=== PATIENT | male | born 1955 | race Caucasian/White ===

== ENCOUNTER 2019-11-24 15:43 | Inpatient (IN) ==
[2019-11-24] MEDS ORDERED: ALBUT/IPRATROP 3MG/0.5MG NEB 3 ML VIAL INH STA (15:53)
[2019-11-24 16:15] LABS: Basophils # (auto) 0.02 K/uL (0-0.2); Basophils % (auto) 0.2 %; Eosinophils # (auto) 0.04 K/uL (0-0.5); Eosinophils % (auto) 0.3 %; Hematocrit (blood only) 53.3 % (42-52); Hemoglobin 17.1 g/dL (14.0-18.0); Immature Granulocytes # (auto) 0.03 K/uL (0.00-0.02); Immature Granulocytes % (auto) 0.2 %; Lymphocytes # (auto) 1.69 K/uL (1.2-3.4); Lymphocytes % (auto) 13.8 %; Mean Corpuscular Hemoglobin 29.9 pg (25-34); Mean Corpuscular Hgb Conc 32.1 g/dL (32-36); Mean Corpuscular Volume 93.2 fL (80-100); Mean Platelet Volume 9.8 fL (7.4-10.4); Monocytes # (auto) 1.39 K/uL (0.11-0.59); Monocytes % (auto) 11.4 %; Neutrophils # (auto) 9.04 K/uL (1.4-6.5); Neutrophils % (auto) 74.1 %; Platelet Count 298 K/uL (130-400); RDW Coefficient of Variation 15.2 % (11.5-14.5); RDW Standard Deviation 51.1 fL (36.4-46.3); Red Blood Count 5.72 M/uL (4.7-6.1); White Blood Count 12.21 K/uL (4.8-10.8)
[2019-11-24 16:25] LABS: INR 1.2 (0.9-1.1); Partial Thromboplastin Ratio 0.9; Partial Thromboplastin Time 24.8 Seconds (21.0-31.0); Prothrombin Time 11.9 Seconds (9.0-12.0)
[2019-11-24 16:32] LABS: Albumin Level 3.1 gm/dl (3.4-5.0); BUN Creatinine Ratio 23.8 (10-20); Calcium 9.2 mg/dl (8.5-10.1); Creatinine Clr Calc Pharmacy 75.1 ml/min; Est GFR (African American) 59.1; Magnesium 1.9 mg/dl (1.8-2.4); Potassium 3.8 mmol/L (3.5-5.1)
--- NOTE | 2019-11-24 16:35 | Emergency Department Note ---
Entered by Jamar Cullen acting as a scribe for History of Present Illness General Chief complaint: Shortness of Breath/Dyspnea Stated complaint: SOB Time Seen by Provider: 11/24/19 15:59 Source: patient Limitations: no limitations History of Present Illness The patient is a 64 year old male who presents to the Emergency Room with complaints of constant SOB starting a few days ago. The patient states he does not have a history of lung problems. He states he was diagnosed with congestive heart failure within the past year. He states his legs have been more swollen in the past two days. He states he has not weighed himself. He notes he has been coughing and has been bringing up white and clear sputum. He states his abdomen has been distended and notes he gets filled up with gas a lot. He notes he has had sharp pain in his right shoulder for the past couple days. The patient states he he has an open wound on his left calf. He states he has taken 3 courses of antibiotics within the past week for his left calf. He states he is not on antibiotics right now. He states he has diabetes and takes metformin for that. The patient denies having chest pain, fevers, chills, flu-like symptoms, black or bloody stools, achiness, and history of blood clots. He states he does not wear oxygen at home. He states he has been taking his medications and has not ran out of them. Home Medications Home Medications Medication Instructions Recorded Confirmed Type amlodipine 5 mg PO QAM 10/31/18 11/24/19 History ascorbic acid (vitamin C) [Vitamin 1,000 mg PO QAM 10/31/18 11/24/19 History C] aspirin [Aspir-81] 81 mg PO QAM 10/31/18 11/24/19 History cetirizine 10 mg PO QAM 10/31/18 11/24/19 History multivitamin [Multiple Vitamins] 1 tab PO QAM 10/31/18 11/24/19 History potassium gluconate 600 mg PO QAM 10/31/18 11/24/19 History ranitidine HCl 150 mg PO QAM 10/31/18 11/24/19 History turmeric root extract 500 mg PO QAM 10/31/18 11/24/19 History acetaminophen 1,300 mg PO UD PRN 11/24/19 11/24/19 History atenolol 25 mg PO QAM 11/24/19 11/24/19 History atorvastatin 40 mg PO QAM 11/24/19 11/24/19 History fenofibrate micronized 200 mg PO QAM 11/24/19 11/24/19 History furosemide 60 mg PO QAM 11/24/19 11/24/19 History lisinopril 40 mg PO DAILY 11/24/19 11/24/19 History metformin 500 mg PO QAM 11/24/19 11/24/19 History Allergies Allergy/AdvReac Type Severity Reaction Status Date / Time No Known Allergies Allergy Verified 11/24/19 16:17 Past Med/Surg History Medical History Arthritis Arthritis (Chronic) CHF (congestive heart failure) Chronic venous insufficiency (Chronic) Congestive heart failure (Resolved) Diabetes Diabetes (Chronic) GERD without esophagitis (Chronic) High cholesterol (Chronic) HTN (hypertension) Hyperlipidemia Hypertension (Chronic) Tobacco pipe smoker Smokes 1 pipe / week Venous ulcer of left leg (Chronic) Vitamin D deficiency (Chronic) Surgical History Hx of hand surgery Family History Aunt Colorectal cancer maternal aunt Mother Myocardial infarction Father Myocardial infarction Social History Preferred Language: [place]ian Communication Ability: Effective Visual Impairment: No Limitations Hearing Ability: Normal Scrape Gatherer Required: No Beliefs That Will Affect Care: None marital status: Single Current Living Situation: Alone current occupational status: disabled Other Information That Helps Us Care for You: No Feels Safe at Home: Yes Safety Concerns: Feels Safe At This Time Smoking Status: Current some day smoker Tobacco Type: cigarettes and smokeless tobacco ; Cigarettes Per Day: 1 to 2 a day in a month ; Do You Dip or Chew Tobacco: Yes (1.25 oz X 2 (cans)) ; Second Hand Exposure: No ; Tobacco Cessation Education Requested by Patient: No Hx Alcohol Use: Yes Alcohol type: beer, wine and hard liquor Alcohol Intake Frequency: Weekly Hx Substance Use: No caffeine: Yes Dental Care, Regularly: No Seatbelt Use: always Sunscreen Use: No Review of Systems See HPI for pertinent positives & negatives. and A total of 10 systems reviewed and were otherwise negative Physical Exam Vital Signs Vital Signs - 24 hr 11/24/19 15:47 11/24/19 15:57 11/24/19 16:00 Temperature 36.7 C Temperature Source Oral Pulse Rate 99 H 96 H 95 H Pulse Rate from SpO2 Sensor 99 H 94 H Pulse Rhythm Regular Pulse Strength Normal Respiratory Rate 22 16 20 Respiratory Effort / Characteristics Non-Labored Spontaneous Respiratory Depth Normal Respiratory Pattern Regular Blood Pressure 112/74 133/86 Blood Pressure Mean 86 96 Blood Pressure Position Sitting Pulse Oximetry 79 L 91 92 Oxygen Delivery Method Room Air Oxymask Oxymask Oxygen Flow Rate 5 5 Sepsis Recent Fever Within 48 Hours No Sepsis New/Unexplained Change in Mental Status No Sepsis Action Taken by Nursing No Action Required 11/24/19 16:02 11/24/19 16:05 11/24/19 16:10 Temperature Temperature Source Pulse Rate 96 H 94 H Pulse Rate from SpO2 Sensor 95 H 94 H Pulse Rhythm Pulse Strength Respiratory Rate 23 11 L Respiratory Effort / Characteristics Spontaneous Respiratory Depth Normal Respiratory Pattern Regular Blood Pressure 114/73 Blood Pressure Mean 85 Blood Pressure Position Pulse Oximetry 93 90 Oxygen Delivery Method Oxymask Room Air Oxymask Oxygen Flow Rate 5 5 Sepsis Recent Fever Within 48 Hours Sepsis New/Unexplained Change in Mental Status Sepsis Action Taken by Nursing 11/24/19 16:20 11/24/19 16:30 11/24/19 16:31 Temperature Temperature Source Pulse Rate 95 H 93 H 92 H Pulse Rate from SpO2 Sensor 96 H 94 H 93 H Pulse Rhythm Pulse Strength Respiratory Rate 25 H 21 29 H Respiratory Effort / Characteristics Respiratory Depth Respiratory Pattern Blood Pressure 98/73 L Blood Pressure Mean 76 Blood Pressure Position Pulse Oximetry 89 L Oxygen Delivery Method Oxymask Oxymask Oxymask Oxygen Flow Rate 5 5 5 Sepsis Recent Fever Within 48 Hours Sepsis New/Unexplained Change in Mental Status Sepsis Action Taken by Nursing 11/24/19 16:40 11/24/19 16:50 11/24/19 17:00 Temperature Temperature Source Pulse Rate 90 92 H 85 Pulse Rate from SpO2 Sensor 90 93 H 86 Pulse Rhythm Pulse Strength Respiratory Rate 23 21 9 L Respiratory Effort / Characteristics Respiratory Depth Respiratory Pattern Blood Pressure 106/65 Blood Pressure Mean 78 Blood Pressure Position Pulse Oximetry 90 89 L Oxygen Delivery Method Oxymask Oxymask Oxymask Oxygen Flow Rate 5 5 5 Sepsis Recent Fever Within 48 Hours Sepsis New/Unexplained Change in Mental Status Sepsis Action Taken by Nursing 11/24/19 17:01 11/24/19 17:10 11/24/19 17:20 Temperature Temperature Source Pulse Rate 86 100 H 84 Pulse Rate from SpO2 Sensor 87 92 H 84 Pulse Rhythm Pulse Strength Respiratory Rate 6 L 16 10 L Respiratory Effort / Characteristics Respiratory Depth Respiratory Pattern Blood Pressure Blood Pressure Mean Blood Pressure Position Pulse Oximetry 90 90 90 Oxygen Delivery Method Oxymask Oxymask Oxymask Oxygen Flow Rate 5 5 5 Sepsis Recent Fever Within 48 Hours Sepsis New/Unexplained Change in Mental Status Sepsis Action Taken by Nursing 11/24/19 17:30 11/24/19 17:31 11/24/19 17:40 Temperature Temperature Source Pulse Rate 82 80 87 Pulse Rate from SpO2 Sensor 82 80 87 Pulse Rhythm Pulse Strength Respiratory Rate 19 25 H 21 Respiratory Effort / Characteristics Respiratory Depth Respiratory Pattern Blood Pressure 115/75 Blood Pressure Mean 84 Blood Pressure Position Pulse Oximetry 91 89 L 82 L Oxygen Delivery Method Oxymask Oxymask Room Air Oxygen Flow Rate 5 5 Sepsis Recent Fever Within 48 Hours Sepsis New/Unexplained Change in Mental Status Sepsis Action Taken by Nursing 11/24/19 17:50 Temperature Temperature Source Pulse Rate 82 Pulse Rate from SpO2 Sensor 82 Pulse Rhythm Pulse Strength Respiratory Rate 9 L Respiratory Effort / Characteristics Respiratory Depth Respiratory Pattern Blood Pressure Blood Pressure Mean Blood Pressure Position Pulse Oximetry 89 L Oxygen Delivery Method Oxymask Oxygen Flow Rate 5 Sepsis Recent Fever Within 48 Hours Sepsis New/Unexplained Change in Mental Status Sepsis Action Taken by Nursing General: Non-ill appearing older male in no acute distress. He is on supplemental oxygen with an O2 sat of 89-91 percent. HEENT: Normal cephalic atraumatic. Pupils are equal round and reactive to light. Extraocular movements are intact. Oropharynx is pink with moist mucous membranes. No swelling of the mouth lips or tongue. Neck: Supple with a midline trachea. No meningeal signs or stiffness, no JVD or bruits. No Stridor. Chest: Clear to auscultation bilaterally. No wheezes or rhonchi. No increased work of breathing. Diminished breath sounds. Heart: regular rate and rhythm. Abdomen: Soft nontender, nondistended without rebound guarding or rigidity. Extremities: No cyanosis clubbing. Bilateral pitting edema. Spine/Back. Non tender to palpation. No CVA tenderness Skin: Good turgor without rashes. Neurologic exam: Cranial nerves two through 12 are intact. Motor and sensation are intact and symmetrical throughout. Course Course 1600: The patient was evaluated in room B2, and a complete history and physical examination were performed. 1643: I discussed the patient's case with Dr. Josephine Otero - [facility]. She will evaluate the patient for further management 1655: I ordered a CTA. 1735: I spoke with Dr. Otero. She wants to cancel the CTA. Administered Medications Enoxaparin Sodium (Lovenox) 40 mg SQ QPM ROSETTE Stop: 12/24/19 20:59 Last Admin: 11/24/19 20:32 Dose: 40 mg Documented by: [id number] Insulin Aspart (Novolog Flexpen) 0 units SC ACHS ROSETTE Stop: 12/24/19 20:59 Last Admin: 11/24/19 20:43 Dose: 5 units Documented by: [id number] Cosigned by: [id number] Insulin Glargine (Lantus Solostar Pen) 8 units SC BID ROSETTE Stop: 12/24/19 20:59 Last Admin: 11/24/19 20:34 Dose: 8 units Documented by: [id number] Cosigned by: [id number] Miscellaneous (Order Awaiting Action) 1 ea N/A QS [facility] Stop: 12/25/19 00:00 Last Admin: 11/24/19 23:35 Dose: Not Given Documented by: [id number] Discontinued Medications Acetaminophen (Tylenol) Confirm Administered Dose 650 mg .ROUTE .STK-MED ONE Stop: 11/24/19 19:39 Last Admin: 11/24/19 19:43 Dose: 650 mg Documented by: [id number] Albuterol (Duoneb) 3 ml INH NOW STA Stop: 11/24/19 15:54 Last Admin: 11/24/19 16:15 Dose: Not Given Documented by: [id number] Furosemide (Lasix) 60 mg IV NOW STA Stop: 11/24/19 19:33 Last Admin: 11/24/19 20:31 Dose: 60 mg Documented by: [id number] Medical Decision Making Differential Diagnosis Differential Diagnosis includes but is not limited to CHF, cardiac disease, arrhythmia, infection, sepsis, and electrolyte or metabolic abnormality. Medical Records Attestation: I reviewed the patient's medical records. Home Medications Current Medication List: was personally reviewed by me Laboratory Data Attestation: I reviewed the patient's lab results. Result diagrams: 11/24/19 16:02 11/24/19 16:02 Lab Results 11/24/19 11/24/19 11/24/19 Range/Units 16:02 16:02 16:02 WBC 12.21 H (4.8-10.8) K/uL RBC 5.72 (4.7-6.1) M/uL Hgb 17.1 (14.0-18.0) g/dL Hct 53.3 H (42-52) % MCV 93.2 (80-100) fL MCH 29.9 (25-34) pg MCHC 32.1 (32-36) g/dL RDW Std Deviation 51.1 H (36.4-46.3) fL RDW Coeff of [place]acio 15.2 H (11.5-14.5) % Plt Count 298 (130-400) K/uL MPV 9.8 (7.4-10.4) fL Immature Gran % (Auto) 0.2 % Neut % (Auto) 74.1 % Lymph % (Auto) 13.8 % [place] % (Auto) 11.4 % Eos % (Auto) 0.3 % Baso % (Auto) 0.2 % Immature Gran # (Auto) 0.03 H (0.00-0.02) K/uL Neut # (Auto) 9.04 H (1.4-6.5) K/uL Lymph # (Auto) 1.69 (1.2-3.4) K/uL [place] # (Auto) 1.39 H (0.11-0.59) K/uL Eos # (Auto) 0.04 (0-0.5) K/uL Baso # (Auto) 0.02 (0-0.2) K/uL PT 11.9 (9.0-12.0) Seconds INR 1.2 H (0.9-1.1) APTT 24.8 (21.0-31.0) Seconds PTT Ratio 0.9 Sodium 143 (136-145) mmol/L Potassium 3.8 (3.5-5.1) mmol/L Chloride 105 (98-107) mmol/L Carbon Dioxide 32 (21-32) mmol/L Anion Gap 6.0 (3-11) BUN 34 H (7-18) mg/dl Creatinine 1.44 H (0.6-1.4) mg/dl Est Cr Clr Drug Dosing 75.1 ml/min Est GFR ( Amer) 59.1 Est GFR (Non-Af Amer) 51.0 BUN/Creatinine Ratio 23.8 H (10-20) Glucose 178 H (70-99) mg/dl Calcium 9.2 (8.5-10.1) mg/dl Magnesium 1.9 (1.8-2.4) mg/dl Total Bilirubin 0.6 (0.2-1) mg/dl AST 25 (15-37) U/L ALT 23 (12-78) U/L Alkaline Phosphatase 54 (45-117) U/L Troponin I 0.236 H* (0-0.045) ng/ml NT-Pro-B Natriuret Pep 4279 H (0-900) pg/ml Total Protein 7.2 (6.4-8.2) gm/dl Albumin 3.1 L (3.4-5.0) gm/dl Globulin 4.1 H (2.5-4.0) gm/dl Albumin/Globulin Ratio 0.7 L (0.9-2) Lipase 52 L (73-393) U/L Imaging Data Radiologist's Impression: Radiology results as stated below per my review and the radiologist's interpretation: XR chest 1V portable CLINICAL HISTORY: SOB dyspnea COMPARISON STUDY: No previous studies for comparison. FINDINGS: Mild cardiac enlargement. Mild prominence of the pulmonary vasculature. Diaphragms are smooth. Chronic elevation right hemidiaphragm IMPRESSION: . Mild cardiac enlargement. Pulmonary vascular congestion. ACT 112: Negative or not required by law. The above report was generated using voice recognition software. It may contain grammatical, syntax or spelling errors. Electronically signed by: Mohan Mckinney M.D. 11/24/2019 5:01 PM ECG Data Attestation: I personally reviewed and interpreted this ECG as follows: Indication: + SOB/dyspnea Rate (beats per minute): 106 Rhythm: + sinus tachycardia ECG ST segments: + T-wave inversions (anterior and inferior); no ST elevation Comparison ECG Date: no prior available MDM Narrative This patient comes in as described above. He said shortness of breath and weight gain over the last several days he does have a history of CHF. He has been compliant with his medication denies any chest pain or fever he has had a cough that occasionally has some nonpurulent phlegm. IV access established she was 79% when he was brought in from triage from his family. He was placed on oxygen and appears well with supplemental oxygen he does not wear oxygen at home he has no history of pulmonary lung problems besides CHF. He is a diabetic. We did check a fingerstick IV access was established, chest x-ray, EKG, and multip le blood testing was obtained. He was reassessed frequently. His BNP and troponin are also elevated as well as a chest x-ray consistent with CHF. EKG does not show any ischemic changes. he has no significant electrolyte or metabolic abnormalities, with exception of some renal insufficiency.I do think he needs to be admitted/observed. I have consulted Dr. Otero, the hospitalist to see him for these measures. She initially had asked me to order a CT of his chest however after she saw the patient she does not feel she needs it and the patient is not sure he could tolerate laying flat. They will further observe and treat him in the hospital. Impression & Plan SOB (shortness of breath), CHF (congestive heart failure), Hypoxemia, Diabetes Discharge Plan Visit Data *Final* Discharge Date/Time: 11/24/19 18:55 Chief Complaint: Shortness of Breath/Dyspnea Stated Complaint: SOB ED Provider: Dayday Muñoz Discharge Problem: SOB (shortness of breath), CHF (congestive heart failure), Hypoxemia, Diabetes Patient Disposition: Admitted As Inpatient Discharge Instructions Interventions: ED Discharge Assessment Last Done: 11/24/19 18:55 Discharge Problem: CHF (congestive heart failure) Qualifiers: Heart failure type: unspecified Heart failure chronicity: unspecified Qualified Code(s): I50.9 - Heart failure, unspecified Diabetes Qualifiers: Diabetes mellitus type: type 2 Diabetes mellitus detention insulin use: without terminal makeup operator use Diabetes mellitus complication status: without complication Qualified Code(s): E11.9 - Type 2 diabetes mellitus without complications The sujeyibe's documentation has been prepared under my direction and personally reviewed by me in its entirety. I confirm that the note above accurately reflects all work, treatment, procedures, and medical decision making performed by me.
[2019-11-24 16:42] LABS: Albumin Globulin Ratio 0.7 (0.9-2); Bilirubin,Total 0.6 mg/dl (0.2-1); Globulin 4.1 gm/dl (2.5-4.0); Total Protein 7.2 gm/dl (6.4-8.2); Troponin I 0.236 ng/ml (0-0.045)
--- NOTE | 2019-11-24 17:02 | XRay Report ---
XR chest 1V portable CLINICAL HISTORY: SOB dyspnea COMPARISON STUDY: No previous studies for comparison. FINDINGS: Mild cardiac enlargement. Mild prominence of the pulmonary vasculature. Diaphragms are smoo th. Chronic elevation right hemidiaphragm IMPRESSION: . Mild cardiac enlargement. Pulmonary vascular congestion. ACT 112: Negative or not required by law. The above report was generated using voice recognition software. It may contain grammatical, syntax or spelling errors. Electronically signed by: Mohan Mckinney M.D. 11/24/2019 5:01 PM
--- NOTE | 2019-11-24 18:06 | History & Physical Report ---
Date of Service November 24, 2019 Assessment & Plan (1) SOB (shortness of breath): Patient presenting with progressive shortness of breath, dyspnea with minimal exertion. Hypoxic in triage at 79% on room air. During my encounter, tachypneic with adequate oxygenation on facemask. Crackles on exam, chest x-ray significant for pulmonary edema. Suspect acute exacerbation of CHF as underlying etiology of shortness of breath. Low suspicion for infectious etiology at this time. -Admit to PCU Check VBG to assess ventilation Check 2D echo Supplemental oxygen as needed to maintain saturations greater than 94% Lasix 60 mg IV x1 dose Monitor intake and output, daily weights -Patient with slight CO2 retention - will try VapoTherm/High flow -VBG with AM labs Present on Admission?: Yes (2) Hypoxemia: As above, patient hypoxic on arrival. Requiring supplemental oxygen to maintain saturations. Suspect CHF exacerbation given clinical exam findings, labs and imaging. Little suspicion for PE given low Wells score. Do not suspect infectious etiology at this time. Patient with no history of asthma/COPD Treatment as above Present on Admission?: Yes (3) Abdominal distention: Patient reports increased abdominal distention. Having difficult time passing flatus. Diminished bowel sounds Check KUB Present on Admission?: Yes (4) Venous stasis ulcer: Patient follows with wound clinic. Last seen by Dr. Grigsby yesterday. Is presently not taking antibiotics. Does not appear to have active infection. Wound care daily Present on Admission?: Yes (5) GERD without esophagitis: Chronic. Stable. Patient denies symptoms at this time Pepcid 40 mg p.o. every morning Patient can be discharged home on his ranitidine Present on Admission?: Yes (6) Diabetes: Blood sugar = 178 today. Patient on metformin at home Hold metformin while inpatient Lantus 8 units subcutaneous twice daily with insulin sliding scale Goal blood sugar 100-1 40 Present on Admission?: Yes (7) High cholesterol: Chronic. Stable. -Continue atorvastatin Continue fenofibrate Present on Admission?: Yes (8) Hypertension: Blood pressure stable at present Continue amlodipine Continue atenolol Continue lisinopril F/E/N- Diuresis as above. Monitor electrolytes and replete as needed. CC/Low Na diet as tolerated Ppx - Lovenox Code - Full Dispo - Admit to PCU Present on Admission?: Yes History of Present Illness Chief Complaint: SOB Primary Care Provider: ABHAY Jennings Elliot Kearns is a 64yo C male with history of CHF, HTN/HLP/DM presenting with 2-3 days of worsening SOB, dyspnea with minimal exertion. He reports only being able to walk 10 feet before becoming short of breath. Also with cough, productive for white mucus. +Orthopnea +5 to 6# weight gain over the last month, +LE edema. No prior admissions for CHF exacerbation. He admits to overindulging in salt over the holiday season. Has not missed his medications. Denies pleuritic CP, CP, palpitations, hemoptysis, abdominal pain, nausea, vomiting, diarrhea, constipation. Denies fevers/chills. ER Course: Albuterol Allergies Allergy/AdvReac Type Severity Reaction Status Date / Time No Known Allergies Allergy Verified 11/24/19 16:17 Home Medications Home Medications Medication Instructions Recorded Confirmed Type amlodipine 5 mg PO QAM 10/31/18 11/24/19 History ascorbic acid (vitamin C) [Vitamin 1,000 mg PO QAM 10/31/18 11/24/19 History C] aspirin [Aspir-81] 81 mg PO QAM 10/31/18 11/24/19 History cetirizine 10 mg PO QAM 10/31/18 11/24/19 History multivitamin [Multiple Vitamins] 1 tab PO QAM 10/31/18 11/24/19 History potassium gluconate 600 mg PO QAM 10/31/18 11/24/19 History ranitidine HCl 150 mg PO QAM 10/31/18 11/24/19 History turmeric root extract 500 mg PO QAM 10/31/18 11/24/19 History acetaminophen 1,300 mg PO UD PRN 11/24/19 11/24/19 History atenolol 25 mg PO QAM 11/24/19 11/24/19 History atorvastatin 40 mg PO QAM 11/24/19 11/24/19 History fenofibrate micronized 200 mg PO QAM 11/24/19 11/24/19 History furosemide 60 mg PO QAM 11/24/19 11/24/19 History lisinopril 40 mg PO DAILY 11/24/19 11/24/19 History metformin 500 mg PO QAM 11/24/19 11/24/19 History Past Med/Surg History Medical History Arthritis Arthritis (Chronic) CHF (congestive heart failure) Chronic venous insufficiency (Chronic) Congestive heart failure (Resolved) Diabetes Diabetes (Chronic) GERD without esophagitis (Chronic) High cholesterol (Chronic) HTN (hypertension) Hyperlipidemia Hypertension (Chronic) Tobacco pipe smoker Smokes 1 pipe / week Venous ulcer of left leg (Chronic) Vitamin D deficiency (Chronic) Surgical History Hx of hand surgery Family History Aunt Colorectal cancer maternal aunt Mother Myocardial infarction Father Myocardial infarction Social History Preferred Language: Arabic Communication Ability: Effective Visual Impairment: No Limitations 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 Beliefs That Will Affect Care: None marital status: Single Current Living Situation: Alone current occupational status: disabled Other Information That Helps Us Care for You: No Feels Safe at Home: Yes Safety Concerns: Feels Safe At This Time Smoking Status: Current some day smoker Tobacco Type: cigarettes and smokeless tobacco ; Cigarettes Per Day: 1 to 2 a day in a month ; Do You Dip or Chew Tobacco: Yes (1.25 oz X 2 (cans)) ; Second Hand Exposure: No ; Tobacco Cessation Education Requested by Patient: No Hx Alcohol Use: Yes Alcohol type: beer, wine and hard liquor Alcohol Intake Frequency: Weekly Hx Substance Use: No caffeine: Yes Dental Care, Regularly: No Seatbelt Use: always Sunscreen Use: No Review of Systems Review of Systems: All systems reviewed & are unremarkable except as noted in HPI & below Physical Exam Physical Exam: General: Obese patient resting comfortably, mildly tachypneic, non-toxic in appearance, AA&O x 4, patient becomes quite dyspneic and hypoxic with minimal exertion Skin: warm, dry, no rashes, wound on left lower extremity with granulation [place]/eschar, no bleeding/drainage/evidence of secondary infection HEENT: NC/AT, PERRL, EOMI, anicteric sclera, conjunctiva without injection, external ear normal to inspection and nontender, nares patent, moist mucus membranes, dentition intact, no oropharyngeal lesions, neck supple, trachea midline, no LAD, no thyromegaly, evaluation of JVD limited secondary to body habitus Heart: +S1/S2, regular, no m/r/g Lungs: equal air entry bilaterally, + rales in bilateral bases, left more than right, no rhonchi/wheezes Abd: Hypoactive bowel sounds, soft, NT, distended and tympanic to percussion, no masses/organomegaly/ascites Ext: warm, 2+ pulses in UE/LE bilaterally, wound on left anterior monge with dressing in place. No crepitus/bulla/streaking. 2+ pitting edema of left lower extremity, 1+ pitting edema of right lower extremity Neuro: nonfocal, patient AA&O x 4, speech intact, no facial droop, moving all extremities on command with equal strength 5/5 Results & Data Vital Signs (Past 12 Hours) Vital Signs Temp Pulse Resp BP Pulse Ox 11/24/19 17:40 87 21 82 L 11/24/19 17:31 80 25 H 89 L 11/24/19 17:30 82 19 115/75 91 11/24/19 17:20 84 10 L 90 11/24/19 17:10 100 H 16 90 11/24/19 17:01 86 6 L 90 11/24/19 17:00 85 9 L 106/65 11/24/19 16:50 92 H 21 89 L 11/24/19 16:40 90 23 90 11/24/19 16:31 92 H 29 H 89 L 11/24/19 16:30 93 H 21 98/73 L 11/24/19 16:20 95 H 25 H 11/24/19 16:10 94 H 11 L 90 11/24/19 16:02 96 H 23 114/73 93 11/24/19 16:00 95 H 20 92 11/24/19 15:57 96 H 16 133/86 91 11/24/19 15:47 36.7 C 99 H 22 112/74 79 L Laboratory Results Lab Results 11/24/19 11/24/19 11/24/19 Range/Units 16:02 16:02 16:02 WBC 12.21 H (4.8-10.8) K/uL RBC 5.72 (4.7-6.1) M/uL Hgb 17.1 (14.0-18.0) g/dL Hct 53.3 H (42-52) % MCV 93.2 (80-100) fL MCH 29.9 (25-34) pg MCHC 32.1 (32-36) g/dL RDW Std Deviation 51.1 H (36.4-46.3) fL RDW Coeff of Bonifacio 15.2 H (11.5-14.5) % Plt Count 298 (130-400) K/uL MPV 9.8 (7.4-10.4) fL Immature Gran % (Auto) 0.2 % Neut % (Auto) 74.1 % Lymph % (Auto) 13.8 % [place] % (Auto) 11.4 % Eos % (Auto) 0.3 % Baso % (Auto) 0.2 % Immature Gran # (Auto) 0.03 H (0.00-0.02) K/uL Neut # (Auto) 9.04 H (1.4-6.5) K/uL Lymph # (Auto) 1.69 (1.2-3.4) K/uL [place] # (Auto) 1.39 H (0.11-0.59) K/uL Eos # (Auto) 0.04 (0-0.5) K/uL Baso # (Auto) 0.02 (0-0.2) K/uL PT 11.9 (9.0-12.0) Seconds INR 1.2 H (0.9-1.1) APTT 24.8 (21.0-31.0) Seconds PTT Ratio 0.9 VBG pH (7.36-7.41) VBG pCO2 (38-50) mmHg VBG pO2 mmHg VBG HCO3 mmol/L VBG O2 Saturation % VBG Base Excess mEq/L Barometric Pressure mm/Hg Sodium 143 (136-145) mmol/L Potassium 3.8 (3.5-5.1) mmol/L Chloride 105 (98-107) mmol/L Carbon Dioxide 32 (21-32) mmol/L Anion Gap 6.0 (3-11) BUN 34 H (7-18) mg/dl Creatinine 1.44 H (0.6-1.4) mg/dl Est Cr Clr Drug Dosing 75.1 ml/min Est GFR ( Amer) 59.1 Est GFR (Non-Af Amer) 51.0 BUN/Creatinine Ratio 23.8 H (10-20) Glucose 178 H (70-99) mg/dl POC Glucose (70-99) Calcium 9.2 (8.5-10.1) mg/dl Phosphorus (2.5-4.9) mg/dl Magnesium 1.9 (1.8-2.4) mg/dl Total Bilirubin 0.6 (0.2-1) mg/dl AST 25 (15-37) U/L ALT 23 (12-78) U/L Alkaline Phosphatase 54 (45-117) U/L Troponin I 0.236 H* (0-0.045) ng/ml NT-Pro-B Natriuret Pep 4279 H (0-900) pg/ml Total Protein 7.2 (6.4-8.2) gm/dl Albumin 3.1 L (3.4-5.0) gm/dl Globulin 4.1 H (2.5-4.0) gm/dl Albumin/Globulin Ratio 0.7 L (0.9-2) Lipase 52 L (73-393) U/L 11/24/19 11/24/19 11/24/19 Range/Units 19:46 19:46 19:53 WBC (4.8-10.8) K/uL RBC (4.7-6.1) M/uL Hgb (14.0-18.0) g/dL Hct (42-52) % MCV (80-100) fL MCH (25-34) pg MCHC (32-36) g/dL RDW Std Deviation (36.4-46.3) fL RDW Coeff of Bonifacio (11.5-14.5) % Plt Count (130-400) K/uL MPV (7.4-10.4) fL Immature Gran % (Auto) % Neut % (Auto) % Lymph % (Auto) % [place] % (Auto) % Eos % (Auto) % Baso % (Auto) % Immature Gran # (Auto) (0.00-0.02) K/uL Neut # (Auto) (1.4-6.5) K/uL Lymph # (Auto) (1.2-3.4) K/uL [place] # (Auto) (0.11-0.59) K/uL Eos # (Auto) (0-0.5) K/uL Baso # (Auto) (0-0.2) K/uL PT (9.0-12.0) Seconds INR (0.9-1.1) APTT (21.0-31.0) Seconds PTT Ratio VBG pH 7.32 L (7.36-7.41) VBG pCO2 64 H (38-50) mmHg VBG pO2 61 mmHg VBG HCO3 32 mmol/L VBG O2 Saturation 87.8 % VBG Base Excess 3.7 mEq/L Barometric Pressure 728.1 mm/Hg Sodium (136-145) mmol/L Potassium (3.5-5.1) mmol/L Chloride (98-107) mmol/L Carbon Dioxide (21-32) mmol/L Anion Gap (3-11) BUN (7-18) mg/dl Creatinine (0.6-1.4) mg/dl Est Cr Clr Drug Dosing ml/min Est GFR ( Amer) Est GFR (Non-Af Amer) BUN/Creatinine Ratio (10-20) Glucose (70-99) mg/dl POC Glucose 137 H (70-99) Calcium (8.5-10.1) mg/dl Phosphorus 5.0 H (2.5-4.9) mg/dl Magnesium (1.8-2.4) mg/dl Total Bilirubin (0.2-1) mg/dl AST (15-37) U/L ALT (12-78) U/L Alkaline Phosphatase (45-117) U/L Troponin I (0-0.045) ng/ml NT-Pro-B Natriuret Pep (0-900) pg/ml Total Protein (6.4-8.2) gm/dl Albumin (3.4-5.0) gm/dl Globulin (2.5-4.0) gm/dl Albumin/Globulin Ratio (0.9-2) Lipase (73-393) U/L Diagnostic Findings XR chest 1V portable CLINICAL HISTORY: SOB dyspnea COMPARISON STUDY: No previous studies for comparison. FINDINGS: Mild cardiac enlargement. Mild prominence of the pulmonary vasculature. Diaphragms are smooth. Chronic elevation right hemidiaphragm IMPRESSION: . Mild cardiac enlargement. Pulmonary vascular congestion. ACT 112: Negative or not required by law. The above report was generated using voice recognition software. It may contain grammatical, syntax or spelling errors. Electronically signed by: Mohan Mckinney M.D. 11/24/2019 5:01 PM Dictated: 11/24/[id number] Transcribed: 11/24/191700 KUB HISTORY: abdominal distention COMPARISON: None. FINDINGS: The bowel gas pattern is unremarkable. There are no dilated loops of small bowel to suggest an obstruction. No renal calculi. No ureteral calculi. No pneumoperitoneum or pneumatosis. IMPRESSION: Unremarkable bowel gas pattern. No evidence for bowel obstruction. ACT 112: Negative or not required by law. Electronically signed by: Dayday Buchanan M.D. 11/24/2019 9:26 PM Dictated: 11/24/[id number] Transcribed: 11/24/192123 LEFT LOWER EXTREMITY VENOUS DOPPLER HISTORY: Left lower extremity edema, redness COMPARISON STUDY: None. FINDINGS: There is normal compressibility, flow, and augmentation within the left lower extremity deep venous system. IMPRESSION: No DVT within the left lower extremity. ACT 112: Negative or not required by law. Electronically signed by: Dayday Buchanan M.D. 11/24/2019 9:08 PM Dictated: 11/24/[id number] Transcribed: 11/24/192107 ECG Additional Comments: The study shows ST at 106bpm, right axis, TWI in inferior leads and anterior leads Code Status & VTE Plan VTE Prophylaxis Plan VTE Prophylaxis will be ordered: Yes PG Care Time/CCT Total # of Minutes Spent Total Time Spent with Patient: Total time spent is greater than 50% in coordination of care (as documented) at patient's floor/unit and/or counseling patient: (1) Diabetes Diabetes mellitus complication status: without complication Diabetes mellitus penitentiary insulin use: without penitentiary use Diabetes mellitus type: type 2 Qualified Code(s): E11.9 - Type 2 diabetes mellitus without complications (2) Venous stasis ulcer Laterality: left Non-pressure ulcer stage: limited to breakdown of skin Varicose vein presence: unspecified whether present Venous stasis ulcer site: calf Qualified Code(s): I83.022 - Varicose veins of left lower extremity with ulcer of calf; L97.221 - Non-pressure chronic ulcer of left calf limited to breakdown of skin (3) Hypertension Hypertension type: essential hypertension Qualified Code(s): I10 - Essential (primary) hypertension
[2019-11-24] MEDS ORDERED: GLUCOSE 40% GEL 15 GM TUBE PO PRN (19:32)
[2019-11-24] MEDS ORDERED: GLUCOSE 10 TABS/TUBE PO PRN (19:32)
[2019-11-24] MEDS ORDERED: ONDANSETRON INJ 2 MG/ML 2 ML VIAL IV PRN (19:32)
[2019-11-24] MEDS ORDERED: POLYETHYLENE (MIRALAX) 17 GM PACK PO PRN (19:32)
[2019-11-24] MEDS ORDERED: GLUCAGON FOR INJ 1 MG VIAL SQ PRN (19:32)
[2019-11-24] MEDS ORDERED: DEXTROSE 50% 50 ML SYRINGE IV PRN (19:32)
[2019-11-24] MEDS ORDERED: FUROSEMIDE 40 MG/4 ML VIAL IV STA (19:32)
[2019-11-24] MEDS ORDERED: CARBOHYDRATES FOR HYPOGLYCEMIA PO PRN (19:32)
[2019-11-24] MEDS ORDERED: DOCUSATE SODIUM 100 MG CAP PO PRN (19:32)
[2019-11-24] MEDS ORDERED: ACETAMINOPHEN 325 MG TAB ONE (19:38)
[2019-11-24 19:59] LABS: Base Excess VBG 3.7 mEq/L; Oxygen Saturation VBG 87.8 %; pH VBG 7.32 (7.36-7.41)
[2019-11-24] MEDS: ENOXAPARIN INJ 40 MG/0.4 ML SYR SQ SCH (20:32)
[2019-11-24] MEDS: INSULIN GLARGINE SOLOSTAR 100 UNITS/ML 3 ML PEN SC SCH (20:34)
[2019-11-24] MEDS: INSULIN ASPART 100 UNITS/ML 3 ML PEN SC SCH (20:43)
--- NOTE | 2019-11-24 21:09 | Ultrasound Report ---
LEFT LOWER EXTREMITY VENOUS DOPPLER HISTORY: Left lower extremity edema, redness COMPARISON STUDY: None. FINDINGS: There is normal compressibility, flow, and augmentation within the left lower extremity brant p venous system. IMPRESSION: No DVT within the left lower extremity. ACT 112: Negative or not required by law. Electronically signed by: Dayday Buchanan M.D. 11/24/2019 9:08 PM
--- NOTE | 2019-11-24 21:27 | XRay Report ---
KUB HISTORY: abdominal distention COMPARISON: None. FINDINGS: The bowel gas pattern is unremarkable. There are no dilated loops of small bowel to suggest an obstruction. No renal calculi. No ureteral calculi. No pneumoperitoneum or pneumatosis. IMPRESSION: Unremarkable bowel gas pattern. No evidence for bowel obstruction. ACT 112: Negative or not required by law. Electronically signed by: Dayday Buchanan M.D. 11/24/2019 9:26 PM
[2019-11-24] MEDS: FENOFIBRATE - ORDER AWAITING ACTION SCH (23:35)
--- NOTE | 2019-11-25 07:52 | Electrocardiogram Report ---
Test Reason : Blood Pressure : / mmHG Vent. Rate : 106 BPM Atrial Rate : 106 BPM P-R Int : 176 ms QRS Dur : 096 ms QT Int : 372 ms P-R-T Axes : 045 168 -51 degrees QTc Int : 494 ms Sinus tachycardia with occasional Premature ventricular complexes Right ventricular hypertrophy T wave changes concerning for ischemia Abnormal ECG No previous ECGs available Confirmed by Oscar Fried ([id number]) on 11/25/2019 7:51:36 AM Referred By: Confirmed By:Roger Fried
[2019-11-25 07:56] LABS: Basophils # (auto) 0.01 K/uL (0-0.2); Basophils % (auto) 0.1 %; Eosinophils # (auto) 0.09 K/uL (0-0.5); Hematocrit (blood only) 51.5 % (42-52); Hemoglobin 16.4 g/dL (14.0-18.0); Immature Granulocytes # (auto) 0.01 K/uL (0.00-0.02); Immature Granulocytes % (auto) 0.1 %; Lymphocytes # (auto) 1.76 K/uL (1.2-3.4); Lymphocytes % (auto) 18.6 %; Mean Corpuscular Hemoglobin 29.5 pg (25-34); Mean Corpuscular Hgb Conc 31.8 g/dL (32-36); Mean Corpuscular Volume 92.6 fL (80-100); Monocytes # (auto) 1.07 K/uL (0.11-0.59); Monocytes % (auto) 11.3 %; Neutrophils # (auto) 6.51 K/uL (1.4-6.5); Neutrophils % (auto) 68.9 %; Platelet Count 227 K/uL (130-400); RDW Coefficient of Variation 15.4 % (11.5-14.5); RDW Standard Deviation 51.8 fL (36.4-46.3); Red Blood Count 5.56 M/uL (4.7-6.1); White Blood Count 9.45 K/uL (4.8-10.8)
[2019-11-25 07:57] LABS: Base Excess VBG 6.6 mEq/L; HCO3 VBG 36 mmol/L; Oxygen Saturation VBG < 60.0 %; PCO2 VBG 71 mmHg (38-50); PO2 VBG 26 mmHg; pH VBG 7.32 (7.36-7.41)
[2019-11-25] MEDS: INSULIN ASPART 100 UNITS/ML 3 ML PEN SC SCH ×4 (08:05→19:58)
[2019-11-25] MEDS: INSULIN GLARGINE SOLOSTAR 100 UNITS/ML 3 ML PEN SC SCH ×2 (08:07→20:01)
[2019-11-25] MEDS: CETIRIZINE HCL 10 MG TABLET PO SCH (08:08)
[2019-11-25] MEDS: ASPIRIN 81 MG ECTAB PO SCH (08:09)
[2019-11-25] MEDS: ATENOLOL 25 MG TABLET PO SCH (08:09)
[2019-11-25] MEDS: ATORVASTATIN 40 MG TAB PO SCH (08:09)
[2019-11-25] MEDS: FAMOTIDINE 40 MG TABLET PO SCH (08:09)
[2019-11-25] MEDS: AMLODIPINE BESYLATE 5 MG TAB PO SCH (08:09)
[2019-11-25] MEDS: lisinopriL 40 MG TAB PO SCH (08:09)
[2019-11-25] MEDS: ACETAMINOPHEN 325 MG TAB PO PRN ×2 (08:09→20:07)
[2019-11-25 08:23] LABS: BUN Creatinine Ratio 23.8 (10-20); Calcium 9.4 mg/dl (8.5-10.1); Creatinine Clr Calc Pharmacy 78.8 ml/min; Est GFR (African American) 63.9; Est GFR (Non-African American) 55.1; Potassium 3.8 mmol/L (3.5-5.1)
[2019-11-25 08:34] LABS: Thyroid Stimulating Hormone 1.75 uIu/ml (0.300-4.500)
[2019-11-25] MEDS: FENOFIBRATE - ORDER AWAITING ACTION SCH ×2 (09:29→16:27)
--- NOTE | 2019-11-25 12:58 | Electrocardiogram Report ---
Test Reason : Blood Pressure : / mmHG Vent. Rate : 075 BPM Atrial Rate : 075 BPM P-R Int : 174 ms QRS Dur : 100 ms QT Int : 472 ms P-R-T Axes : 051 123 -67 degrees QTc Int : 527 ms Normal sinus rhythm Left posterior fascicular block Prolonged QT Abnormal ECG When compared with ECG of 24-NOV-2019 15:53, Premature ventricular complexes are no longer Present T wave inversion now evident in Lateral leads Confirmed by Juan Manuel Mandel ([id number]) on 11/25/2019 12:58:41 PM Referred By: REFERRED SELF Confirmed By:Juan Manuel Mandel
[2019-11-25] MEDS: ENOXAPARIN INJ 40 MG/0.4 ML SYR SQ SCH (19:59)
--- NOTE | 2019-11-25 20:05 | Hospitalist Progress Note ---
Date of Service November 25, 2019 Assessment & Plan (1) SOB (shortness of breath): Patient presenting with progressive shortness of breath, dyspnea with minimal exertion. Hypoxic in triage at 79% on room air. During my encounter, tachypneic with adequate oxygenation on facemask. Crackles on exam, chest x-ray significant for pulmonary edema. Suspect acute exacerbation of CHF as underlying etiology of shortness of breath. Low suspicion for infectious etiology at this time. -Admit to PCU -appears to be CO2 retaining. -Patient appears to have improved from diuretic, will hold off today and monitor his oxygen status as his creatinine has also bumped. Echocardiogram has shown normal EF, but with LVH. Diastolic dysfunction is a possiblity. Supplemental oxygen as needed to maintain saturations greater than 94% Monitor intake and output, daily weights may consider BIPAP/ (2) Hypoxemia: As above, patient hypoxic on arrival. Requiring supplemental oxygen to maintain saturations. Suspect CHF exacerbation given clinical exam findings, labs and imaging. Little suspicion for PE given low Wells score. Do not suspect infectious etiology at this time. Patient with no history of asthma/COPD Treatment as above (3) Abdominal distention: Patient reports increased abdominal distention. Having difficult time passing flatus. Diminished bowel sounds Check KUB: no signs of obstruction (4) Venous stasis ulcer: Patient follows with wound clinic. Last seen by Dr. Grigsby yesterday. Is presently not taking antibiotics. Does not appear to have active infection. Wound care daily (5) GERD without esophagitis: Chronic. Stable. Patient denies symptoms at this time Pepcid 40 mg p.o. every morning Patient can be discharged home on his ranitidine (6) Diabetes: Blood sugar = 178 today. Patient on metformin at home Hold metformin while inpatient Lantus 8 units subcutaneous twice daily with insulin sliding scale Goal blood sugar 100-1 40 (7) High cholesterol: Chronic. Stable. -Continue atorvastatin Continue fenofibrate (8) Hypertension: Blood pressure stable at present Continue amlodipine Continue atenolol Continue lisinopril F/E/N- Diuresis as above. Monitor electrolytes and replete as needed. CC/Low Na diet as tolerated Ppx - Lovenox Code - Full Subjective 64 yo male reports slightly feeling better. Still not at baseline. Patient continues to be short of breath at rest. Patient denies any fever, chills, nausea or vomiting. Review of Systems Review of Systems: All systems reviewed & are unremarkable except as noted in HPI & below Physical Exam Physical Exam: General: Obese patient resting comfortably, non-toxic in appearance, AA&O x 4, Skin: warm, dry, no rashes, wound on left lower extremity with granulation tissue/eschar, no bleeding/drainage/evidence of secondary infection HEENT: NC/AT, PERRL, EOMI, anicteric sclera, conjunctiva without injection, external ear normal to inspection and nontender, nares patent, moist mucus membranes, dentition intact, no oropharyngeal lesions, neck supple, trachea midline, no LAD, no thyromegaly, evaluation of JVD limited secondary to body habitus Heart: +S1/S2, regular, no m/r/g Lungs: equal air entry bilaterally, + rales in bilateral bases, l no rhonchi/wheezes Abd: Hypoactive bowel sounds, soft, NT, distended and tympanic to percussion, no masses/organomegaly/ascites Ext: warm, 2+ pulses in UE/LE bilaterally, wound on left anterior monge with dressing in place. No crepitus/bulla/streaking. 2+ pitting edema of left lower extremity, 1+ pitting edema of right lower extremity Neuro: nonfocal, patient AA&O x 4, speech intact, no facial droop, moving all extremities on command with equal strength 5/5 Results & Data Vital Signs (Past 12 Hours) Vital Signs Temp Pulse Pulse Resp BP Pulse Ox Pulse Ox 11/25/19 18:49 36.5 C 74 20 102/69 96 11/25/19 15:57 36.7 C 73 20 90/60 L 91 11/25/19 15:28 68 11/25/19 12:56 71 18 91 11/25/19 11:37 36.7 C 68 20 90/59 L 93 11/25/19 10:59 78 18 92 11/25/19 10:25 78 11/25/19 10:22 91 PG Care Time/CCT Total # of Minutes Spent Total Time Spent with Patient: Total time spent is greater than 50% in coordination of care (as documented) at patient's floor/unit and/or counseling patient: (1) Diabetes Diabetes mellitus complication status: without complication Diabetes mellitus rn long term care insulin use: without rn long term care use Diabetes mellitus type: type 2 Qualified Code(s): E11.9 - Type 2 diabetes mellitus without complications (2) Venous stasis ulcer Laterality: left Non-pressure ulcer stage: limited to breakdown of skin Varicose vein presence: unspecified whether present Venous stasis ulcer site: calf Qualified Code(s): I83.022 - Varicose veins of left lower extremity with ulcer of calf; L97.221 - Non-pressure chronic ulcer of left calf limited to adan [place] of skin (3) Hypertension Hypertension type: essential hypertension Qualified Code(s): I10 - Essential (primary) hypertension
[2019-11-26] MEDS: FENOFIBRATE - ORDER AWAITING ACTION SCH ×3 (07:19→15:44)
[2019-11-26] MEDS: ATENOLOL 25 MG TABLET PO SCH (07:46)
[2019-11-26] MEDS: AMLODIPINE BESYLATE 5 MG TAB PO SCH (07:46)
[2019-11-26] MEDS: ASPIRIN 81 MG ECTAB PO SCH (07:46)
[2019-11-26] MEDS: ATORVASTATIN 40 MG TAB PO SCH (07:46)
[2019-11-26] MEDS: FAMOTIDINE 40 MG TABLET PO SCH (07:47)
[2019-11-26] MEDS: CETIRIZINE HCL 10 MG TABLET PO SCH (07:47)
[2019-11-26] MEDS: lisinopriL 40 MG TAB PO SCH (07:47)
[2019-11-26] MEDS: INSULIN GLARGINE SOLOSTAR 100 UNITS/ML 3 ML PEN SC SCH ×2 (07:47→20:09)
[2019-11-26] MEDS: INSULIN ASPART 100 UNITS/ML 3 ML PEN SC SCH ×4 (07:48→20:08)
[2019-11-26] MEDS: ACETAMINOPHEN 325 MG TAB PO PRN (12:37)
--- NOTE | 2019-11-26 18:14 | XRay Report ---
XR chest 1V portable CLINICAL HISTORY: hypoxia dyspnea COMPARISON STUDY: 11/24/2019 FINDINGS: Mild stable cardiomegaly. Pulmonary vascular congestion. Mild bibasilar atelectasis. IMPRESSION: Mild stable cardiomegaly. Unchanged pulmonary vascular congestion. ACT 112: Negative or not required by law. The above report was generated using voice recognition software. It may contain grammatical, syntax or spelling errors. Electronically signed by: Mohan Mckinney M.D. 11/26/2019 6:12 PM
[2019-11-26 18:22] LABS: Basophils # (auto) 0.01 K/uL (0-0.2); Basophils % (auto) 0.1 %; Eosinophils # (auto) 0.03 K/uL (0-0.5); Eosinophils % (auto) 0.2 %; Hematocrit (blood only) 48.9 % (42-52); Hemoglobin 15.3 g/dL (14.0-18.0); Immature Granulocytes # (auto) 0.04 K/uL (0.00-0.02); Immature Granulocytes % (auto) 0.3 %; Lymphocytes # (auto) 0.82 K/uL (1.2-3.4); Lymphocytes % (auto) 5.8 %; Mean Corpuscular Hemoglobin 30.2 pg (25-34); Mean Corpuscular Hgb Conc 31.3 g/dL (32-36); Mean Corpuscular Volume 96.4 fL (80-100); Mean Platelet Volume 9.8 fL (7.4-10.4); Monocytes # (auto) 1.79 K/uL (0.11-0.59); Monocytes % (auto) 12.7 %; Neutrophils # (auto) 11.41 K/uL (1.4-6.5); Neutrophils % (auto) 80.9 %; Platelet Count 244 K/uL (130-400); RDW Coefficient of Variation 15.7 % (11.5-14.5); RDW Standard Deviation 54.9 fL (36.4-46.3); Red Blood Count 5.07 M/uL (4.7-6.1)
[2019-11-26 18:46] LABS: BUN Creatinine Ratio 20.2 (10-20); Calcium 8.8 mg/dl (8.5-10.1); Creatinine Clr Calc Pharmacy 38.1 ml/min; Est GFR (African American) 26.2; Est GFR (Non-African American) 22.6; Potassium 4.2 mmol/L (3.5-5.1)
[2019-11-26] MEDS ORDERED: PIPERACILL/TAZOBAC CONSULT ACTIVE PRN (19:04)
[2019-11-26 19:08] LABS: Base Excess VBG 0.8 mEq/L; Oxygen Saturation VBG 80.6 %; pH VBG 7.19 (7.36-7.41)
[2019-11-26] MEDS ORDERED: LACTATED RINGER'S 1,000 ML IV SCH (19:30)
[2019-11-26] MEDS ORDERED: PIPERACILLIN/TAZOBACTAM 4.5 GM in DEXTROSE 5% 100 ML IV ONE (19:30)
[2019-11-26] MEDS: ENOXAPARIN INJ 40 MG/0.4 ML SYR SQ SCH (20:10)
[2019-11-26] MEDS ORDERED: Nursing to Pharmacy Communication ONE (20:52)
[2019-11-26 21:32] LABS: Base Excess VBG 1.9 mEq/L; HCO3 VBG 34 mmol/L; PCO2 VBG 97 mmHg (38-50); PO2 VBG 31 mmHg; pH VBG 7.17 (7.36-7.41)
[2019-11-26 21:33] LABS: Oxygen Saturation VBG < 60.0 %
[2019-11-26] MEDS: ALBUT/IPRATROP 3MG/0.5MG NEB 3 ML VIAL NEB SCH (22:11)
--- NOTE | 2019-11-26 23:41 | Hospitalist Progress Note ---
Date of Service November 26, 2019 Assessment & Plan (1) SOB (shortness of breath): Acute hypercapnic respiratory failure Patient presenting with progressive shortness of breath, dyspnea with minimal exertion. Hypoxic in triage at 79% on room air. During my encounter, tachypneic with adequate oxygenation on facemask. Crackles on exam, chest x-ray significant for pulmonary edema. Suspect acute exacerbation of CHF as underlying etiology of shortness of breath. Low suspicion for infectious etiology at this time. -Admit to PCU -Concern of worsening CO2 retention. -Likely multifactorial, with obesity and undiagnosed COPD. Will need PFT at discharge. -Patient also having worsening labs: worse creat, WBC, BUN. -BNP improved; procal is normal. - concern over possible infectious process. -Wound may be culprit: but lung could be as well. For now will place on zosyn and monitor. 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 -Patient appears to have improved from diuretic, held due to increase in creatinine. Echocardiogram has shown normal EF, but with LVH. 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 (2) Hypoxemia: As above, patient hypoxic on arrival. Requiring supplemental oxygen to maintain saturations. Suspect CHF exacerbation given clinical exam findings, labs and imaging. Little suspicion for PE given low Wells score. Do not suspec t infectious etiology at this time. Patient with no history of asthma/COPD Treatment as above (3) Abdominal distention: Patient reports increased abdominal distention. Having difficult time passing flatus. Diminished bowel sounds Check KUB: no signs of obstruction (4) Venous stasis ulcer: Patient follows with wound clinic. Last seen by Dr. Grigsby yesterday. Is presently not taking antibiotics. Does not appear to have active infection. Wound care daily (5) GERD without esophagitis: Chronic. Stable. Patient denies symptoms at this time Pepcid 40 mg p.o. every morning Patient can be discharged home on his ranitidine (6) Diabetes: Blood sugar = 178 today. Patient on metformin at home Hold metformin while inpatient Lantus 8 units subcutaneous twice daily with insulin sliding scale Goal blood sugar 100-1 40 (7) High cholesterol: Chronic. Stable. -Continue atorvastatin Continue fenofibrate (8) Hypertension: Blood pressure stable at present Continue amlodipine Continue atenolol Continue lisinopril F/E/N- Diuresis as above. Monitor electrolytes and replete as needed. CC/Low Na diet as tolerated Ppx - Lovenox Code - Full (9) Acute hypercapnic respiratory failure: on BIPAP. will repeat VBG 1 hhour after starting bipap (10) Acute kidney failure: Creat trended up more than one point to 2.8 May consider nephro consult on wednesday Subjective Patient reports no change from yesterday. Patient does not feel worse or better. Review of Systems Review of Systems: All systems reviewed & are unremarkable except as noted in HPI & below Physical Exam Physical Exam: General: Obese patient resting comfortably, non-toxic in appearance, AA&O x 4, Skin: warm, dry, no rashes, wound on left lower extremity with granulation tissue/eschar, no bleeding/drainage/evidence of secondary infection HEENT: NC/AT, PERRL, EOMI, anicteric sclera, conjunctiva without injection, external ear normal to inspection and nontender, nares patent, moist mucus membranes, dentition intact, no oropharyngeal lesions, neck supple, trachea midline, no LAD, no thyromegaly, evaluation of JVD limited secondary to body habitus Heart: +S1/S2, regular, no m/r/g Lungs: equal air entry bilaterally, + rales in bilateral bases, l no rhonch i/wheezes Abd: Hypoactive bowel sounds, soft, NT, distended and tympanic to percussion, no masses/organomegaly/ascites Ext: warm, 2+ pulses in UE/LE bilaterally, wound on left anterior monge with dressing in place. No crepitus/bulla/streaking. 2+ pitting edema of left lower extremity, 1+ pitting edema of right lower extremity Neuro: nonfocal, patient AA&O x 4, speech intact, no facial droop, moving all extremities on command with equal strength 5/5 Results & Data Vital Signs (Past 12 Hours) Vital Signs Temp Pulse Pulse Resp BP Pulse Ox 11/26/19 22:13 65 20 94 11/26/19 22:12 64 20 94 11/26/19 20:07 36.8 C 70 20 116/71 93 11/26/19 19:40 70 19 93 11/26/19 15:20 36.9 C 84 22 96/64 L 92 PG Care Time/CCT Total # of Minutes Spent Total Time Spent with Patient: Total time spent is greater than 50% in coordination of care (as documented) at patient's floor/unit and/or counseling patient: Critical Care Time: Yes Total Critical Care Time: 31 19:30 to 20:01 (1) Diabetes Diabetes mellitus complication status: without complication Diabetes mellitus mcc insulin use: without mcc use Diabetes mellitus type: type 2 Qualified Code(s): E11.9 - Type 2 diabetes mellitus without complications (2) Venous stasis ulcer Laterality: left Non-pressure ulcer stage: limited to breakdown of skin Varicose vein presence: unspecified whether present Venous stasis ulcer site: calf Qualified Code(s): I83.022 - Varicose veins of left lower extremity with ulcer of calf; L97.221 - Non-pressure chronic ulcer of left calf limited to breakdown of skin (3) Hypertension Hypertension type: essential hypertension Qualified Code(s): I10 - Essential (primary) hypertension
[2019-11-27 00:39] LABS: Base Excess VBG 1.6 mEq/L; HCO3 VBG 33 mmol/L; Oxygen Saturation VBG < 60.0 %; PCO2 VBG 84 mmHg (38-50); PO2 VBG 23 mmHg; pH VBG 7.21 (7.36-7.41)
[2019-11-27] MEDS: PIPERACILLIN/TAZOBACTAM 4.5 GM in DEXTROSE 5% 100 ML IV SCH ×3 (00:57→16:56)
[2019-11-27] MEDS: FENOFIBRATE - ORDER AWAITING ACTION SCH ×3 (00:58→15:12)
[2019-11-27] MEDS: ALBUT/IPRATROP 3MG/0.5MG NEB 3 ML VIAL NEB SCH ×5 (02:13→19:32)
[2019-11-27 05:56] LABS: Eosinophils # (auto) 0.02 K/uL (0-0.5); Eosinophils % (auto) 0.2 %; Hematocrit (blood only) 47.1 % (42-52); Hemoglobin 14.4 g/dL (14.0-18.0); Immature Granulocytes # (auto) 0.03 K/uL (0.00-0.02); Immature Granulocytes % (auto) 0.3 %; Lymphocytes # (auto) 0.64 K/uL (1.2-3.4); Lymphocytes % (auto) 6.1 %; Mean Corpuscular Hemoglobin 28.9 pg (25-34); Mean Corpuscular Hgb Conc 30.6 g/dL (32-36); Mean Corpuscular Volume 94.4 fL (80-100); Mean Platelet Volume 10.1 fL (7.4-10.4); Monocytes # (auto) 1.48 K/uL (0.11-0.59); Monocytes % (auto) 14.2 %; Neutrophils # (auto) 8.27 K/uL (1.4-6.5); Neutrophils % (auto) 79.2 %; Platelet Count 220 K/uL (130-400); RDW Coefficient of Variation 15.6 % (11.5-14.5); RDW Standard Deviation 53.7 fL (36.4-46.3); Red Blood Count 4.99 M/uL (4.7-6.1); White Blood Count 10.44 K/uL (4.8-10.8)
[2019-11-27 06:40] LABS: BUN Creatinine Ratio 20.5 (10-20); Calcium 8.8 mg/dl (8.5-10.1); Creatinine Clr Calc Pharmacy 35.5 ml/min; Est GFR (African American) 24.1; Est GFR (Non-African American) 20.8; Potassium 3.9 mmol/L (3.5-5.1)
[2019-11-27] MEDS: ATENOLOL 25 MG TABLET PO SCH (08:08)
[2019-11-27] MEDS: ATORVASTATIN 40 MG TAB PO SCH (08:08)
[2019-11-27] MEDS: FAMOTIDINE 40 MG TABLET PO SCH (08:09)
[2019-11-27] MEDS: CETIRIZINE HCL 10 MG TABLET PO SCH (08:09)
[2019-11-27] MEDS: ASPIRIN 81 MG ECTAB PO SCH (08:09)
[2019-11-27] MEDS: AMLODIPINE BESYLATE 5 MG TAB PO SCH (08:09)
[2019-11-27] MEDS: INSULIN GLARGINE SOLOSTAR 100 UNITS/ML 3 ML PEN SC SCH ×2 (08:09→20:17)
[2019-11-27] MEDS: INSULIN ASPART 100 UNITS/ML 3 ML PEN SC SCH ×5 (08:12→23:37)
[2019-11-27 08:33] LABS: Base Excess VBG 2.7 mEq/L; HCO3 VBG 33 mmol/L; Oxygen Saturation VBG < 60.0 %; PCO2 VBG 81 mmHg (38-50); PO2 VBG 30 mmHg; pH VBG 7.23 (7.36-7.41)
--- NOTE | 2019-11-27 09:45 | Hospitalist Progress Note ---
Date of Service November 27, 2019 Assessment & Plan (1) Acute hypercapnic respiratory failure: Acute hypercapnic respiratory failure: - Overnight pt with increased oxygen demand and with CT non-contrast this AM showing multifocal pneumonia. - VBG with pH 7.23, pCO2 81. No tachycardia, pt not febrile, no leukocytosis. - Also expect an element of obesity hypoventilation syndrome also contributing to acute hypercapnic respiratory failure. Patient denies any history of obstructive sleep apnea. - Serial ABGs; PPI and Abx (Zosyn, doxy) for pneumonitis/pneumonia per Pulmonology. Transferred to ICU given hypoxia and hypercapnea refractory to BiPAP on telemetry. Pt in discussion with Pulmonary expressed desire to be DNR/DNI. - Pt a chronic smoker and has been seen using chewing tobacco in the hospital multiple times even during BiPAP use. Lower extremity wound: - Lower extremity ulcers growing stenotrophomonas species and previously grew Enterococcus faecalis in September of this year. - Currently on doxy and Zosyn. - WBC 10.44 from 14 yesterday. - Wound care following. Hypotension: - During interview with pt with Dr. Alves in attendance BP found to be 80s systolic. At time pt was not feeling increase SOB, CP, dizziness, lightheadedness. - Pt bolused with resuscitative fluids. - A line placed. Pt agreed to pressor support if necessary however no intubation or mechanical ventilation. Acute kidney failure: - Pt's baseline 1.2; this admission up to 3.02 in the setting of one dose IV diuretic for suspected CHF. - Strict Is/Os with luevano, avoid renal toxins, Venous stasis ulcer of left leg: - Left lower leg recently debrided by wound care and found to be growing stenotrophomonas. - Same site grew Enterococcus faecalis 10/16/2019. - Pt currently on Zosyn and doxycycline which will cover wound bacteria. - Wound care consult placed. CODE STATUS: DNR/DNI, however not against pressor support. FEN/GI: NPO. DVT ppx: Lovenox 40mg daily. Dispo: ICU. (2) SOB (shortness of breath): (3) CHF (congestive heart failure): (4) Venous stasis ulcer: (5) Acute kidney failure: (6) Hypotension: (7) GERD without esophagitis: (8) Diabetes: (9) High cholesterol: (10) Hypertension: Supervising Physician Co-Signing Physician Notes I personally examined the patient and verified all park points of history and exam, discussed case, and agree with decision making with Dr Vigil. Patient seen and examined. Notes that he is feeling fine. Denies shortness of breath denies any air hunger denies any chest pain. Actually denies any complaints whatsoever. However VBG and chest CT reviewed and noted, and also right before we walk in the room he incidentally is found to have systolic blood pressures in the 80s. Vitals noted, in general he is awake and alert surprisingly in no distress but on BiPAP. Laying in bed. Cardio is very distant. Lungs are clear but extremely quiet even with amplification I am only able to hear lung sounds in the upper anterior lung mata otherwise no real air movement. No rales rhonchi or wheezes, but again not really able to hear much of anything. He shows no focal neuro deficits. Skin shows no rashes no pallor or icterus. Acute on presumably chronic mixed hypercapnic and hypoxic respiratory failureinitially thought to be related to acute on chronic diastolic CHF, but after further review he actually has a pneumonia exacerbating a probable underlying chronic hypoventilation syndrome. Was not improving on BiPAPdiscussed with respiratory therapy to max the gradient and try to improve ventilation, they did this. Intensive care staff talked with patient who does not want intubated. Hypotension and JEFRY more than likely related to volume depletiongive IV fluids and follow closely. Continue current antibiotics given the pneumonia itself clinically seems to be getting better given that he is not tachycardic, febrile and has no white count. Moved to ICU. Otherwise as above Subjective Pt requiring BiPAP overnight but denies shortness of breath, chest pain, palpitations. Reports frequent urination. No fevers or chills. Sitting up in bed on my interview. Review of Systems Constitutional: no fever and no chills Respiratory: no cough and no dyspnea Cardiovascular: no chest pain, no palpitations and no edema Gastrointestinal: no abdominal pain, no constipation and no diarrhea/loose stools Physical Exam Physical Exam: Constitutional: well developed, morbidly obese, in NAD. Currently on BiPAP Respiratory: decreased movement of air, no rales or rhonchi appreciated Cardiovascular: RRR no murmurs however distant sounding due to body habitus; pt with bilateral 2+ putting edema to LE up to the knee GI: No TTP, bowel sounds present Skin: no rashes Psych: AAOx3 Results & Data Vital Signs (Past 12 Hours) Vital Signs Temp Pulse Pulse Resp BP BP Pulse Ox 11/27/19 08:00 77 11/27/19 07:10 36.6 C 72 21 110/75 94 11/27/19 06:59 69 73 18 93 11/27/19 04:57 86 19 91 11/27/19 03:05 36.6 C 84 20 103/65 93 11/27/19 02:15 83 23 95 11/27/19 02:14 83 23 95 11/27/19 00:53 83 20 92 11/27/19 00:33 36.9 C 80 22 105/71 93 11/26/19 22:30 70 11/26/19 22:13 65 20 94 11/26/19 22:12 64 20 94 Laboratory Results Laboratory Results - last 24 hr 11/26/19 11/26/19 11/26/19 18:02 18:02 18:02 WBC 14.10 H RBC 5.07 Hgb 15.3 Hct 48.9 MCV 96.4 MCH 30.2 MCHC 31.3 L RDW Std Deviation 54.9 H RDW Coeff of Bonifacio 15.7 H Plt Count 244 MPV 9.8 Immature Gran % (Auto) 0.3 Neut % (Auto) 80.9 Lymph % (Auto) 5.8 [place] % (Auto) 12.7 Eos % (Auto) 0.2 Baso % (Auto) 0.1 Immature Gran # (Auto) 0.04 H Neut # (Auto) 11.41 H Lymph # (Auto) 0.82 L [place] # (Auto) 1.79 H Eos # (Auto) 0.03 Baso # (Auto) 0.01 ABG pH ABG pCO2 ABG pO2 ABG HCO3 ABG O2 Saturation ABG Base Excess Amanuel Test VBG pH VBG pCO2 VBG pO2 VBG HCO3 VBG O2 Saturation VBG Base Excess Barometric Pressure Oxygen Given Sodium 138 Potassium 4.2 Chloride 101 Carbon Dioxide 31 Anion Gap 7.0 BUN 57 H D Creatinine 2.82 H D Est Cr Clr Drug Dosing 38.1 Est GFR ( Amer) 26.2 Est GFR (Non-Af Amer) 22.6 BUN/Creatinine Ratio 20.2 H Glucose 202 H POC Glucose Lactate Calcium 8.8 Total Bilirubin AST ALT Alkaline Phosphatase Troponin I NT-Pro-B Natriuret Pep 3548 H Total Protein Albumin Globulin Albumin/Globulin Ratio Procalcitonin 0.14 Nasal Screen MRSA (PCR) 11/26/19 11/26/19 11/26/19 18:02 20:01 21:10 WBC RBC Hgb Hct MCV MCH MCHC RDW Std Deviation RDW Coeff of Bonifacio Plt Count MPV Immature Gran % (Auto) Neut % (Auto) Lymph % (Auto) [place] % (Auto) Eos % (Auto) Baso % (Auto) Immature Gran # (Auto) Neut # (Auto) Lymph # (Auto) [place] # (Auto) Eos # (Auto) Baso # (Auto) ABG pH ABG pCO2 ABG pO2 ABG HCO3 ABG O2 Saturation ABG Base Excess Amanuel Test VBG pH 7.19 L 7.17 L VBG pCO2 86 H 97 H VBG pO2 52 31 VBG HCO3 32 34 VBG O2 Saturation 80.6 < 60.0 VBG Base Excess 0.8 1.9 Barometric Pressure 731.7 730.7 Oxygen Given Sodium Potassium Chloride Carbon Dioxide Anion Gap BUN Creatinine Est Cr Clr Drug Dosing Est GFR ( Amer) Est GFR (Non-Af Amer) BUN/Creatinine Ratio Glucose POC Glucose 148 H Lactate Calcium Total Bilirubin AST ALT Alkaline Phosphatase Troponin I NT-Pro-B Natriuret Pep Total Protein Albumin Globulin Albumin/Globulin Ratio Procalcitonin Nasal Screen MRSA (PCR) 11/27/19 11/27/19 11/27/19 00:22 05:17 05:17 WBC 10.44 RBC 4.99 Hgb 14.4 Hct 47.1 MCV 94.4 MCH 28.9 MCHC 30.6 L RDW Std Deviation 53.7 H RDW Coeff of Bonifacio 15.6 H Plt Count 220 MPV 10.1 Immature Gran % (Auto) 0.3 Neut % (Auto) 79.2 Lymph % (Auto) 6.1 [place] % (Auto) 14.2 Eos % (Auto) 0.2 Baso % (Auto) 0.0 Immature Gran # (Auto) 0.03 H Neut # (Auto) 8.27 H Lymph # (Auto) 0.64 L [place] # (Auto) 1.48 H Eos # (Auto) 0.02 Baso # (Auto) 0.00 ABG pH ABG pCO2 ABG pO2 ABG HCO3 ABG O2 Saturation ABG Base Excess Amanuel Test VBG pH 7.21 L VBG pCO2 84 H VBG pO2 23 VBG HCO3 33 VBG O2 Saturation < 60.0 VBG Base Excess 1.6 Barometric Pressure 728.5 Oxygen Given Sodium 139 Potassium 3.9 Chloride 100 Carbon Dioxide 33 H Anion Gap 6.0 BUN 62 H Creatinine 3.02 H Est Cr Clr Drug Dosing 35.5 Est GFR ( Amer) 24.1 Est GFR (Non-Af Amer) 20.8 BUN/Creatinine Ratio 20.5 H Glucose 137 H POC Glucose Lactate Calcium 8.8 Total Bilirubin AST ALT Alkaline Phosphatase Troponin I NT-Pro-B Natriuret Pep Total Protein Albumin Globulin Albumin/Globulin Ratio Procalcitonin Nasal Screen MRSA (PCR) 11/27/19 11/27/19 11/27/19 07:37 07:42 11:19 WBC RBC Hgb Hct MCV MCH MCHC RDW Std Deviation RDW Coeff of Bonifacio Plt Count MPV Immature Gran % (Auto) Neut % (Auto) Lymph % (Auto) [place] % (Auto) Eos % (Auto) Baso % (Auto) Immature Gran # (Auto) Neut # (Auto) Lymph # (Auto) [place] # (Auto) Eos # (Auto) Baso # (Auto) ABG pH ABG pCO2 ABG pO2 ABG HCO3 ABG O2 Saturation ABG Base Excess Amanuel Test VBG pH 7.23 L VBG pCO2 81 H VBG pO2 30 VBG HCO3 33 VBG O2 Saturation < 60.0 VBG Base Excess 2.7 Barometric Pressure 729.8 Oxygen Given Sodium Potassium Chloride Carbon Dioxide Anion Gap BUN Creatinine Est Cr Clr Drug Dosing Est GFR ( Amer) Est GFR (Non-Af Amer) BUN/Creatinine Ratio Glucose POC Glucose 113 H 163 H Lactate Calcium Total Bilirubin AST ALT Alkaline Phosphatase Troponin I NT-Pro-B Natriuret Pep Total Protein Albumin Globulin Albumin/Globulin Ratio Procalcitonin Nasal Screen MRSA (PCR) 11/27/19 11/27/19 11/27/19 11:30 12:20 14:19 WBC RBC Hgb Hct MCV MCH MCHC RDW Std Deviation RDW Coeff of Bonifacio Plt Count MPV Immature Gran % (Auto) Neut % (Auto) Lymph % (Auto) [place] % (Auto) Eos % (Auto) Baso % (Auto) Immature Gran # (Auto) Neut # (Auto) Lymph # (Auto) [place] # (Auto) Eos # (Auto) Baso # (Auto) ABG pH 7.28 L ABG pCO2 67 H ABG pO2 60 L ABG HCO3 31 H ABG O2 Saturation 88.4 L ABG Base Excess 1.8 Amanuel Test Pos VBG pH VBG pCO2 VBG pO2 VBG HCO3 VBG O2 Saturation VBG Base Excess Barometric Pressure 731.2 Oxygen Given 40% Sodium Potassium Chloride Carbon Dioxide Anion Gap BUN Creatinine Est Cr Clr Drug Dosing Est GFR ( Amer) Est GFR (Non-Af Amer) BUN/Creatinine Ratio Glucose POC Glucose Lactate 1.1 Calcium Total Bilirubin AST ALT Alkaline Phosphatase Troponin I NT-Pro-B Natriuret Pep Total Protein Albumin Globulin Albumin/Globulin Ratio Procalcitonin Nasal Screen MRSA (PCR) Negative 11/27/19 11/27/19 11/27/19 14:19 14:19 16:01 WBC RBC Hgb Hct MCV MCH MCHC RDW Std Deviation RDW Coeff of Bonifacio Plt Count MPV Immature Gran % (Auto) Neut % (Auto) Lymph % (Auto) [place] % (Auto) Eos % (Auto) Baso % (Auto) Immature Gran # (Auto) Neut # (Auto) Lymph # (Auto) [place] # (Auto) Eos # (Auto) Baso # (Auto) ABG pH ABG pCO2 ABG pO2 ABG HCO3 ABG O2 Saturation ABG Base Excess Amanuel Test VBG pH VBG pCO2 VBG pO2 VBG HCO3 VBG O2 Saturation VBG Base Excess Barometric Pressure Oxygen Given Sodium 136 Potassium 4.3 Chloride 102 Carbon Dioxide 29 Anion Gap 5.0 BUN 63 H Creatinine 2.61 H D Est Cr Clr Drug Dosing 41.7 Est GFR ( Amer) 28.8 Est GFR (Non-Af Amer) 24.8 BUN/Creatinine Ratio 24.1 H Glucose 164 H POC Glucose 163 H Lactate Calcium 8.5 Total Bilirubin 0.6 AST 20 ALT 23 Alkaline Phosphatase 37 L Troponin I 0.043 NT-Pro-B Natriuret Pep Total Protein 6.8 Albumin 2.4 L Globulin 4.4 H Albumin/Globulin Ratio 0.5 L Procalcitonin 0.26 Nasal Screen MRSA (PCR) Medications Administered Current Medications Acetaminophen (Tylenol) 650 mg PO Q4H PRN PRN Reason: Pain or Fever Stop: 12/24/19 19:31 Last Admin: 11/26/19 12:37 Dose: 650 mg Documented by: Albuterol (Duoneb) 3 ml NEB Q4R [facility] Stop: 12/26/19 22:59 Last Admin: 11/27/19 15:29 Dose: 3 ml Documented by: Aspirin ([facility]cotrin Ectab) [facility] [place] Stop: 12/25/19 08:59 Last Admin: 11/27/19 08:09 Dose: 81 mg Documented by: Atorvastatin Calcium (Lipitor) 40 [facility] [place] Stop: 12/25/19 08:59 Last Admin: 11/27/19 08:08 Dose: 40 mg Documented by: Dextrose (Dextrose 50%) 25 - 50 ml IV UD PRN; Protocol PRN Reason: Hypoglycemia Protocol Stop: 12/24/19 19:31 Docusate Sodium (Colace) 100 mg PO BID PRN PRN Reason: Constipation Stop: 12/24/19 19:31 Enoxaparin Sodium (Lovenox) 40 mg SQ QPM [facility] Stop: 12/24/19 20:59 Last Admin: 11/26/19 20:10 Dose: 40 mg Documented by: Famotidine (Pepcid) [facility] [place] Stop: 12/25/19 08:59 Last Admin: 11/27/19 08:09 Dose: 40 mg Documented by: Glucagon (Glucagen) 1 mg SQ UD PRN; Protocol PRN Reason: Hypoglycemia Protocol Stop: 12/24/19 19:31 Glucose (Dex4 Glucose) 4 - 8 tabs PO UD PRN; Protocol PRN Reason: Hypoglycemia Protocol Stop: 12/24/19 19:31 Glucose (Glucose 40%) 15 - 30 gm PO UD PRN; Protocol PRN Reason: Hypoglycemia Protocol Stop: 12/24/19 19:31 Piperacillin Sod/Tazobactam (Sod 4.5 gm/ Dextrose) 120 mls @ 30 mls/hr IV Q8H [facility]; Protocol Stop: 12/06/19 11:59 Last Admin: 11/27/19 16:56 Dose: 28.8 mls/hr Documented by: Lactated Ringer's (Lr) 1,000 mls @ 100 mls/hr IV .Q10H [facility] Last Infusion: 11/27/19 14:00 Dose: 0 mls/hr Documented by: Doxycycline Hyclate 100 mg/ (Dextrose) 110 mls @ 55 mls/hr IV BID [facility] Stop: 12/04/19 11:59 Last Infusion: 11/27/19 14:07 Dose: Infused Documented by: Methylprednisolone 40 mg/ (Syringe) 0.64 mls @ 1.5 mls/min IV DAILY [facility] Stop: 12/28/19 08:59 Insulin Aspart (Novolog Flexpen) 0 units SC Q4 [facility] Stop: 12/27/19 15:59 Last Admin: 11/27/19 16:55 Dose: 2 units Documented by: Insulin Glargine (Lantus Solostar Pen) 0 units SC Q12H [facility]; Protocol Stop: 12/27/19 19:59 Lisinopril (Zestril) 40 mg PO DAILY [facility] Stop: 12/25/19 08:59 Last Admin: 11/26/19 07:47 Dose: 40 mg Documented by: Miscellaneous (Order Awaiting Action) 1 ea N/A QS [facility] Stop: 12/25/19 00:00 Last Admin: 11/27/19 15:12 Dose: Not Given Documented by: Miscellaneous (Carbohydrates For Hypoglycemia) 15 - 30 gm PO UD PRN PRN Reason: Hypoglycemia Protocol Stop: 12/24/19 19:31 Miscellaneous (Pending Order) 1 ea N/A Q4 [facility] Stop: 12/27/19 15:59 Last Admin: 11/27/19 16:57 Dose: Not Given Documented by: Miscellaneous Information (Consult) 1 ea N/A UD PRN PRN Reason: Consult Stop: 12/26/19 19:03 Miscellaneous Information (Consult Glycemic Management Pharmacy) 1 ea N/A UD PRN PRN Reason: Consult Stop: 12/27/19 15:47 Ondansetron HCl (Zofran) 4 mg IV Q6H PRN PRN Reason: Nausea Stop: 12/24/19 19:31 Polyethylene Glycol (Miralax Powder Packet) 17 gm PO DAILY PRN PRN Reason: Constipation Stop: 12/24/19 19:31 Resident Activity Tracking Resident Involvement: Resident Care Provided Care Provided: Adult Hospital Medicine (1) CHF (congestive heart failure) Heart failure chronicity: unspecified Heart failure type: unspecified Qualified Code(s): I50.9 - Heart failure, unspecified (2) Venous stasis ulcer Venous stasis ulcer site: calf Varicose vein presence: unspecified whether present Laterality: left Non-pressure ulcer stage: limited to breakdown of s kin Qualified Code(s): I83.022 - Varicose veins of left lower extremity with ulcer of calf; L97.221 - Non-pressure chronic ulcer of left calf limited to breakdown of skin (3) Diabetes Diabetes mellitus type: type 2 Diabetes mellitus terminal makeup operator insulin use: without terminal makeup operator use Diabetes mellitus complication status: without complication Qualified Code(s): E11.9 - Type 2 diabetes mellitus without complications (4) Hypertension Hypertension type: essential hypertension Qualified Code(s): I10 - Essential (primary) hypertension
--- NOTE | 2019-11-27 09:49 | CT Scan Report ---
CT OF THE CHEST WITHOUT IV CONTRAST CLINICAL HISTORY: Increased dyspnea. COMPARISON STUDY: Chest radiographs November 24, 2019 and November 26, 2019. CT DOSE: 1151.20 mGy.cm TECHNIQUE: Axial images of the chest were obtained without IV contrast. Images were reviewed in the axial, sagittal, and coronal planes. IV contrast was not administered for this examination. Automat ed exposure control was utilized for the study. A dose lowering technique was utilized adhering to t he principles of ALARA. FINDINGS: No enlarged axillary, mediastinal or hilar lymph nodes are present. The heart is moderatel y enlarged. Extensive coronary artery calcification is present. There is no pericardial effusion. The re are trace bilateral pleural effusions. There is no pneumothorax. Moderate elevation of the right h emidiaphragm is noted. A 3.9 x 2.7 cm subpleural lingular airspace opacity is noted. There is moderat e airspace opacity within the right middle and right lower lobes. Central airways are patent. No susp icious osseous lesions within the bony thorax are noted. Visualized portions of the upper abdomen dem onstrate apparent pericholecystic infiltration/edema. However, the gallbladder is contracted. IMPRESSION: 1. 3.9 x 2.7 cm subpleural lingular opacity suggestive of a small focus of pneumonia. A follow-up [facility] CT in 3 months to ensure resolution is recommended. 2. Moderate right middle lobe and right lower lobe airspace opacity which also favors pneumonia. Atel ectasis could appear similar. Trace bilateral pleural effusions. Moderate elevation of the right samantha diaphragm. 3. Moderate cardiomegaly. Extensive coronary artery calcification. 4. Pericholecystic infiltration/edema. However, gallbladder contracted and therefore acute cholecysti tis is considered unlikely. The findings could be correlated with right upper quadrant pain. If pain, an ultrasound is suggested. ACT 112: Negative or not required by law. Electronically signed by: Darryl Coleman M.D. 11/27/2019 9:48 AM
[2019-11-27] MEDS ORDERED: methylPREDNISolone 40 MG in SYRINGE 0 ML IV SCH (10:00)
[2019-11-27] MEDS ORDERED: LACTATED RINGER'S 1,000 ML IV SCH (10:15)
[2019-11-27] MEDS ORDERED: LACTATED RINGER'S 1,000 ML IV ONE (11:09)
--- NOTE | 2019-11-27 12:02 | Pulmonary Consultation ---
Date of Consultation November 27, 2019 Assessment & Plan (1) Acute hypercapnic respiratory failure: Patient denies any history of obstructive sleep apnea Most likely combination of pneumonia with obesity hypoventilation syndrome Obtain ABGs Lower extremity ulcers growing stenotrophomonas and previously grew Enterococcus faecalis in September of this year Consider infectious disease consult Currently on Zosyn and doxycycline Patient emphatic that he does not want intubated or placed on mechanical ventilator Does agree to continue with BiPAP for now Patient is a chronic smoker and chews smokeless tobacco Was found to be chewing tobacco with the BiPAP in place last night Continue PPI and antibiotics for presumed pneumonitis/pneumonia (2) Hypotension: Patient with acute kidney injury with a creatinine of 3.02 Fluid bolus ordered Patient may require central line with pressor support We will continue to follow respiratory status pending transfer Patient agrees to central line but is emphatic that he does not want intubated or want mechanical ventilation. (3) Acute kidney failure: Continue fluid support Avoid renally toxic agents Follow strict I's and O's Tabor catheter in place Venous stasis ulcers with stenotrophomonas and recently with enterococcus Currently receiving Zosyn and doxycycline (4) Venous ulcer of left leg: Followed by wound care clinic Left lower leg recently debrided and growing stenotrophomonas Same site grew Enterococcus faecalis 10/16/2019 Thank you for including us in the care of this patient. Should the patient be transferred to the intensive care unit, please note that we are covering intensive care as well as pulmonary and a secondary consult will not be needed. Additional progress notes and supplemental critical care plans will be placed should the patient be transferred. Please refer to Dr. Dutton's addendum for further recommendations and changes Supervising Physician Co-Signing Physician Notes Patient seen and examined with her and her partner FLACO. I agree with his assessment and plan aside for any exceptions or additions noted: Please refer to my separate documentation in the critical care supplementation note. This is a gentleman with morbid obesity in obesity hypoventilation syndrome with likely secondary pulmonary hypertension. He has acute on chronic hypercapnic and hypoxemic respiratory failure. He would benefit from noninvasive ventilation while sleeping. I would continue with cautious diuresis in light of the fact that he has ongoing renal failure. We will monitor him in the ICU setting for the time being. As noted in my previous note, I did have a lengthy discussion with the patient and he indicated to me that he would like to be a DO NOT RESUSCITATE and DO NOT INTUBATE. I did also discuss this with the patient's daughter and she was tearful yet understanding. History of Present Illness Attending Physician: Golden Alves DO History of Present Illness Attending: Dr. Dutton This is a 64-year-old male with a past medical history including chronic venous stasis with left lower extremity venous stasis ulcer followed by the wound care clinic, GERD, everyday smoker, every day user of smokeless tobacco, diabetes mellitus, hypercholesterolemia, hypertension, diastolic congestive heart failure with preserved left ventricular ejection fraction, and morbid obesity. Pulmonary service is consulted to help with treatment of hypercapnic respiratory failure. Patient had venous blood gases which revealed 7.23, 81, 30, 33. No ABG has been acquired as of this time. Patient has been placed on BiPAP with a rate of 18/8 and a backup rate of 20. Patient was completely alert and oriented for me at the time of my examination. 20 minutes later nursing and respiratory reports that patient is obtunded, dyssynchronous, and apneic. Patient denies any history of sleep apnea or other pulmonary disease. He denies any COPD or emphysema. He has no chest pain or tightness. He does report sputum production of yellowish sputum with no hemoptysis. Patient denies any COPD, pulmonary disease, or following with a president and chief commercial officer in the past. He denies any history of polysomnography. He denies a history of obstructive sleep apnea. Patient reports that his weight has been stable for the last 12 months. Patient does have acute kidney disease with a creatinine of 3.02. Baseline is reported as 1.2-1.3. CT scan of the chest without IV contrast was performed 11/27/2019 and compared to chest x-ray from this month. Patient does appear to have right middle lobe and right lower lobe airspace opacity which is probably pneumonia. Patient also sh ows a subpleural lingular opacity suggestive of pneumonia. His opacity is 3.9 x 2.7 cm. Patient also has trace bilateral pleural effusions with moderate elevation of the right hemidiaphragm. Atelectasis is also noted. Discussion was had with the patient regarding CODE STATUS. He denies wanting any endotracheal intubation or mechanical ventilation. He does agree to cardiac compressions and medical management including cardioversion. I discussed the futility of cardiac compressions without mechanical ventilation and patient is adamant that he does not want to be intubated under any condition. He is tolerating the BiPAP and chooses to continue with BiPAP although he understands that this is temporizing. Patient is hypotensive and does agree to pressors and central line if needed. He also understands that he may be transferred to the intensive care unit for further treatment. Allergies Allergy/AdvReac Type Severity Reaction Status Date / Time No Known Allergies Allergy Verified 11/24/19 16:17 Home Medications Home Medications Medication Instructions Recorded Confirmed Type amlodipine 5 mg PO QAM 10/31/18 11/24/19 History ascorbic acid (vitamin C) [Vitamin 1,000 mg PO QAM 10/31/18 11/24/19 History C] aspirin [Aspir-81] 81 mg PO QAM 10/31/18 11/24/19 History cetirizine 10 mg PO QAM 10/31/18 11/24/19 History multivitamin [Multiple Vitamins] 1 tab PO QAM 10/31/18 11/24/19 History potassium gluconate 600 mg PO QAM 10/31/18 11/24/19 History ranitidine HCl 150 mg PO QAM 10/31/18 11/24/19 History turmeric root extract 500 mg PO QAM 10/31/18 11/24/19 History acetaminophen 1,300 mg PO UD PRN 11/24/19 11/24/19 History atenolol 25 mg PO QAM 11/24/19 11/24/19 History atorvastatin 40 mg PO QAM 11/24/19 11/24/19 History fenofibrate micronized 200 mg PO QAM 11/24/19 11/24/19 History furosemide 60 mg PO QAM 11/24/19 11/24/19 History lisinopril 40 mg PO DAILY 11/24/19 11/24/19 History metformin 500 mg PO QAM 11/24/19 11/24/19 History Patient History Medical History Arthritis Arthritis (Chronic) CHF (congestive heart failure) Chronic venous insufficiency (Chronic) Congestive heart failure (Resolved) Diabetes Diabetes (Chronic) GERD without esophagitis (Chronic) High cholesterol (Chronic) HTN (hypertension) Hyperlipidemia Hypertension (Chronic) Tobacco pipe smoker Smokes 1 pipe / week Venous ulcer of left leg (Chronic) Vitamin D deficiency (Chronic) Surgical History Hx of hand surgery Family History Aunt Colorectal cancer maternal aunt Mother Myocardial infarction Father Myocardial infarction Social History Preferred Language: Slovak Communication Ability: Effective Visual Impairment: No Limitations Hearing Ability: Normal [employer] Controls Operator Required: No Beliefs That Will Affect Care: None marital status: Single Current Living Situation: Alone current occupational status: disabled Other Information That Helps Us Care for You: No Feels Safe at Home: Yes Safety Concerns: Feels Safe At This Time Smoking Status: Current some day smoker Tobacco Type: cigarettes and smokeless tobacco ; Cigarettes Per Day: 1 to 2 a day in a month ; Do You Dip or Chew Tobacco: Yes (1.25 oz X 2 (cans)) ; Second Hand Exposure: No ; Tobacco Cessation Education Requested by Patient: No Hx Alcohol Use: Yes Alcohol type: beer, wine and hard liquor Alcohol Intake Frequency: Weekly Hx Substance Use: No caffeine: Yes Dental Care, Regularly: No Seatbelt Use: always Sunscreen Use: No Review of Systems Review of Systems: All systems reviewed & are unremarkable except as noted in HPI & below Physical Exam Physical Exam: GENERAL : No acute distress. Patient alert and oriented to person place and time. Able to give full history. EYES: No icterus, gaze conjugate. Pupils equal round and reactive to light NOSE: No evidence of epistaxis. MOUTH: No lesions or candidiasis. CPAP mask in place. Mucosa moist NECK: Supple. No stridor LUNGS:. Bibasilar coarse rales. No bronchospasm. Deep inspiration induces cough. HEART: Regular, rate controlled. ABDOMEN: Soft, NT, ND, BS Present. Protuberant. No rebound tenderness. EXTREMITIES: +3 bilateral LE edema, pedal pulses intact and equal bilaterally. Chronic venous stasis bilaterally. Left lower extremity has gauze wrap which is dry and intact with no evidence of bleeding through the gauze NEURO: A&OX3. Results & Data Vital Signs (Past 12 Hours) Vital Signs Temp Pulse Pulse Resp BP BP Pulse Ox 11/27/19 11:30 37.0 C 65 20 81/53 L 74/53 L 92 11/27/19 08:00 77 11/27/19 07:10 36.6 C 72 21 110/75 94 11/27/19 06:59 69 73 18 93 11/27/19 04:57 86 19 91 11/27/19 03:05 36.6 C 84 20 103/65 93 11/27/19 02:15 83 23 95 11/27/19 02:14 83 23 95 11/27/19 00:53 83 20 92 11/27/19 00:33 36.9 C 80 22 105/71 93 Laboratory Results 11/27/19 05:17 11/27/19 05:17 Laboratory Tests 11/27/19 07:37 VBG pH 7.23 L VBG pCO2 81 H VBG pO2 30 VBG HCO3 33 VBG O2 Saturation < 60.[address] OF THE CHEST WITHOUT IV CONTRAST CLINICAL HISTORY: Increased dyspnea. COMPARISON STUDY: Chest radiographs November 24, 2019 and November 26, 2019. CT DOSE: 1151.20 mGy.cm TECHNIQUE: Axial images of the chest were obtained without IV contrast. Images were reviewed in the axial, sagittal, and coronal planes. IV contrast was not administered for this examination. Automated exposure control was utilized for the study. A dose lowering technique was utilized adhering to the principles of ALARA. FINDINGS: No enlarged axillary, mediastinal or hilar lymph nodes are present. The heart is moderately enlarged. Extensive coronary artery calcification is present. There is no pericardial effusion. There are trace bilateral pleural ef fusions. There is no pneumothorax. Moderate elevation of the right hemidiaphragm is noted. A 3.9 x 2.7 cm subpleural lingular airspace opacity is noted. There is moderate airspace opacity within the right middle and right lower lobes. Central airways are patent. No suspicious osseous lesions within the bony thorax are noted. Visualized portions of the upper abdomen demonstrate apparent pericholecy stic infiltration/edema. However, the gallbladder is contracted. IMPRESSION: 1. 3.9 x 2.7 cm subpleural lingular opacity suggestive of a small focus of pneumonia. A follow-up chest CT in 3 months to ensure resolution is recommended. 2. Moderate right middle lobe and right lower lobe airspace opacity which also favors pneumonia. Atelectasis could appear similar. Trace bilateral pleural effusions. Moderate elevation of the right hemidiaphragm. 3. Moderate cardiomegaly. Extensive coronary artery calcification. 4. Pericholecystic infiltration/edema. However, gallbladder contracted and therefore acute cholecystitis is considered unlikely. The findings could be correlated with right upper quadrant pain. If pain, an ultrasound is suggested. ACT 112: Negative or not required by law. Electronically signed by: Darryl Coleman M.D. 11/27/2019 9:48 AM PG Care Time/CCT Total # of Minutes Spent Total Time Spent with Patient: Total time spent is greater than 50% in coordination of care (as documented) at patient's floor/unit and/or counseling patient: 50 minutes
[2019-11-27] MEDS: DOXYCYCLINE HYCLATE 100 MG in DEXTROSE 5% 100 ML IV SCH ×2 (12:07→21:44)
[2019-11-27 12:49] LABS: Allen Test Pos (Pos); Base Excess ABG 1.8 mEq/L (-9-1.8); HCO3 ABG 31 mmol/L (19-24); Oxygen Saturation ABG 88.4 % (90-95); PCO2 ABG 67 mmHg (35-46); PO2 ABG 60 mm/Hg (80-95); pH ABG 7.28 (7.35-7.45)
--- NOTE | 2019-11-27 14:13 | Communication Note ---
Date of Service: November 27, 2019 The patient was originally seen by Moody almonte PA-C on 11/27/2019 as a pulmonary consult and then with transfer to the ICU. Please see my separate addendum on the pulmonary consult. I am now seeing the patient is a critical care consult as well. This is a 64-year-old male with a past medical history of morbid obesity (BMI 49.4), hypertension, diastolic heart failure, chronic venous stasis ulceration, tobacco abuse disorder, hyper lipidemia and diabetes who presented to the hospital on 11/24/2019 due to increasing shortness of breath. Patient tells me that he was unable to walk more than a couple steps at home without getting winded. He notes that he is ambulatory at home but generally sedentary. He denies any history of obstructive sleep apnea. He lives alone and is unsure if he snores. The history is a bit limited given his mild encephalopathy. He is slow to answer questions. He denies any pain currently. He has not had any fevers in the hospitalization. He is currently on Zosyn and doxycycline for multifocal pneumonia. He underwent a CT chest yesterday which demonstrated multifocal infiltrates. He is having worsening renal failure. He had hypotension on the floor and received a fluid bolus. It appears that he is approximately 2.2 L positive. Assessment and plan: Patient has sepsis secondary to multifocal pneumonia. We will continue broad- spectrum antibiotics with doxycycline and Zosyn. Procalcitonin is pending. His procalcitonin yesterday was negative. He has worsening renal failure with hypotension. We will avoid any antihypertensives at this time. I am placing consult for nephrology. He does have a Tabor in place currently and he is making urine. He has acute hypercapnic respiratory failure with a blood gas of 7.28/67/60 on 40% of 18/8 BiPAP. Last evening he had a VBG of 7.17/97. He has a chronic metabolic alkalosis that is likely compensatory for his chronic respiratory acidosis. His fluid status is difficult to gauge as he does appear to have chronic lower extremity edema that is perhaps related to lymphedema and he is extremely obese. Lactate is pending. We will continue him on noninvasive ventilation and target tidal volumes around 400. I did have a discussion with him regarding his CODE STATUS and he indicated to me that he would like to be a DO NOT RESUSCITATE and DO NOT INTUBATE. Certainly, if his creatinine continues to worsen his urine output declines, then we will have to discuss the need for dialysis and see if this is something that he wants to undergo. At this time he is currently on 40 mg 3 times daily of IV Solu-Medrol. I am not certain if he has COPD or if he has had PFTs in the past. His CT scan does not demonstrate any significant emphysema. I do think that his hypercapnic respiratory failure is most likely secondary to obesity hypoventilation syndrome and likely untreated sleep apnea. I think we can try to wean off the steroids at this time as he is also hyperglycemic. I have personally spent 30 minutes of critical care time in the direct management of this patient. This is a life/limb threatening event. This includes time spent evaluating patient, direct bedside care, chart review, placing orders, interpretation of diagnostic studies, discussion with consultants, patient, and family members, as well as other required patient management activities. This time is exclusive of all separately billable procedures, and teaching time and separate from and in addition to any other critical care service time. Thank you for allowing us to participate in the care of this patient.
[2019-11-27 15:01] LABS: Albumin Level 2.4 gm/dl (3.4-5.0); BUN Creatinine Ratio 24.1 (10-20); Calcium 8.5 mg/dl (8.5-10.1); Creatinine Clr Calc Pharmacy 41.7 ml/min; Est GFR (African American) 28.8; Est GFR (Non-African American) 24.8; Potassium 4.3 mmol/L (3.5-5.1)
[2019-11-27 15:13] LABS: Albumin Globulin Ratio 0.5 (0.9-2); Bilirubin,Total 0.6 mg/dl (0.2-1); Globulin 4.4 gm/dl (2.5-4.0); Total Protein 6.8 gm/dl (6.4-8.2); Troponin I 0.043 ng/ml (0-0.045)
--- NOTE | 2019-11-27 15:46 | Nephrology Consultation ---
Date of Consultation November 27, 2019 Assessment & Plan (1) Acute kidney failure: 64 Y O M with HTN, DM, diastolic cHF, Morbid obesity, admitted with sepsis with multifocal Pneumonia. Developed Oliguric JEFRY with hypotension, NSAID, ACEI. H/O diastolic CHF and chronic diuretics. JEFRY hemodynamic with hypotension, diuretic use. No UA or renal imaging available, but intrinsic renal disease or postrenal obstruction seems unlikely although pt has h/o Nephrolithiasis. --volume status difficult to assess, pt was on LR which was just stopped and has been requiring high Fi02, agree with holding IV fluid, monitor UO and renal function --if UO and BP remain low, consider IV NS 500 ml bolus, if no response, hold any further IV fluid --Check UA --As renal function slightly better, will hold off for now, but if renal function worsen again, will get renal USG although may be difficult considering pts body habitus. --continue to hold ACEI/ARB Will follow Thank you for the consult. (2) Hypotension: (3) Acute hypercapnic respiratory failure: (4) Venous stasis ulcer: (5) Oliguria: History of Present Illness Reason for Consultation: JEFRY, Oliguria Attending Physician: Golden Alves DO History of Present Illness Mr. Kearns is a 64 yo M with PMH of HTN, DM Morbid obesity, chronic left lower extremity venous stasis ulcer, GERD, diastolic CHF with preserved LVEF admitted to hospital with Pneumonia. Nephrology consult was requested as pt developed JEFRY and oliguria. EMR records were reviewed ind etail during visit. Daughter Linda was at bedside. Jonny initially presented on 11/24/19 with 2-3 days of worsening SOB, dyspnea with minimal exertion and only being able to walk 10 feet before becoming short of breath. Also had cough, productive for white mucus. weight gain over the last month. Initial CXR showed mild congestion and he was though to have CHF exacerbation and was treated with IV diuretics. At home he was on Lasix 60 mg and Lisinopril 40. CXR on 11/26 19 showed multifocal pneumonia. He also has chronic L LE venous stasis ulcer. Started on Zosyn empirically. He also has been hypotensive since yesterday. Transferred to ICU this afternoon for respiratory failure. Venous blood gases revealed 7.23, Patient has been placed on BiPAP Baseline decent renal function, b/l cr 1.2-1.4, on admission renal function was at b/l started to worsen since yesterday, Cr was 3.0 this am which slightly improved to 2.6 this afternoon. No UA or renal imaging available. UO has been low over last 8 hours. Diuretics was stopped yesterday and was on LR which was stopped this afternoon as O2 sat was low and high Fio2 requirement and concern for volume overload. BP remained low but did not need pressor. Patient currently on BiPAP and was alert and oriented. answering q , denies any symptoms. Allergies Allergy/AdvReac Type Severity Reaction Status Date / Time No Known Allergies Allergy Verified 11/24/19 16:17 Home Medications Home Medications Medication Instructions Recorded Confirmed Type amlodipine 5 mg PO QAM 10/31/18 11/24/19 History ascorbic acid (vitamin C) [Vitamin 1,000 mg PO QAM 10/31/18 11/24/19 History C] aspirin [Aspir-81] 81 mg PO QAM 10/31/18 11/24/19 History cetirizine 10 mg PO QAM 10/31/18 11/24/19 History multivitamin [Multiple Vitamins] 1 tab PO QAM 10/31/18 11/24/19 History potassium gluconate 600 mg PO QAM 10/31/18 11/24/19 History ranitidine HCl 150 mg PO QAM 10/31/18 11/24/19 History turmeric root extract 500 mg PO QAM 10/31/18 11/24/19 History acetaminophen 1,300 mg PO UD PRN 11/24/19 11/24/19 History atenolol 25 mg PO QAM 11/24/19 11/24/19 History atorvastatin 40 mg PO QAM 11/24/19 11/24/19 History fenofibrate micronized 200 mg PO QAM 11/24/19 11/24/19 History furosemide 60 mg PO QAM 11/24/19 11/24/19 History lisinopril 40 mg PO DAILY 11/24/19 11/24/19 History metformin 500 mg PO QAM 11/24/19 11/24/19 History Patient History Medical History Arthritis Arthritis (Chronic) CHF (congestive heart failure) Chronic venous insufficiency (Chronic) Congestive heart failure (Resolved) Diabetes Diabetes (Chronic) GERD without esophagitis (Chronic) High cholesterol (Chronic) HTN (hypertension) Hyperlipidemia Hypertension (Chronic) Tobacco pipe smoker Smokes 1 pipe / week Venous ulcer of left leg (Chronic) Vitamin D deficiency (Chronic) Surgical History Hx of hand surgery Family History Aunt Colorectal cancer maternal aunt Mother Myocardial infarction Father Myocardial infarction Social History Preferred Language: Monegasque Communication Ability: Effective Visual Impairment: No Limitations Hearing Ability: Normal Director Of Adult Epilepsy Required: No Beliefs That Will Affect Care: None marital status: Single Current Living Situation: Alone current occupational status: disabled Other Information That Helps Us Care for You: No Feels Safe at Home: Yes Safety Concerns: Feels Safe At This Time Smoking Status: Current some day smoker Tobacco Type: cigarettes and smokeless tobacco ; Cigarettes Per Day: 1 to 2 a day in a month ; Do You Dip or Chew Tobacco: Yes (1.25 oz X 2 (cans)) ; Second Hand Exposure: No ; Tobacco Cessation Education Requested by Patient: No Hx Alcohol Use: Yes Alcohol type: beer, wine and hard liquor Alcohol Intake Frequency: Weekly Hx Substance Use: No caffeine: Yes Dental Care, Regularly: No Seatbelt Use: always Sunscreen Use: No Review of Systems Review of Systems: All systems reviewed & are unremarkable except as noted in HPI & below Physical Exam Constitutional: + ill appearing and + morbidly obese; no acute distress Eyes: PERRL, conjunctivae normal, anicteric sclerae ENMT: external ear and nose normal, oropharynx normal Ears: no hearing impairment Neck: + thick neck Respiratory: no cough Auscultation: + diminished lung sounds Cardiovascular: Rate/Rhythm: regular rate and regular rhythm Heart Sounds: normal S1 and normal S2 Extremities: + edema Gastrointestinal (Abdomen): normal bowel sounds, soft, nontender, no hepatosplenomegaly Percussion/Palpation: abdomen nontender, no guarding and abdomen not rigid Musculoskeletal: Extremities: extremities normal to inspection Gait: normal gait Skin: + ulcer Neurologic: awake; no focal motor deficits and not confused Psychiatric: A+Ox3, euthymic affect Results & Data Vital Signs (Past 12 Hours) Vital Signs Temp Pulse Pulse Resp BP BP Pulse Ox 11/27/19 15:31 71 22 91 11/27/19 14:00 75 11/27/19 13:54 76 20 93 11/27/19 12:58 74 18 102/70 84 L 11/27/19 12:35 68 18 86/57 L 91 11/27/19 12:15 67 18 88/59 L 92 11/27/19 11:50 78 18 88/60 L 96 11/27/19 11:30 37.0 C 70 18 81/53 L 84/60 L 97 11/27/19 11:26 69 69 20 93 11/27/19 11:20 67 18 80/54 L 11/27/19 08:00 77 11/27/19 07:10 36.6 C 72 21 110/75 94 11/27/19 06:59 69 73 18 93 11/27/19 04:57 86 19 91 PG Care Time/CCT Total # of Minutes Spent Total Time Spent with Patient: Total time spent is greater than 50% in coordination of care (as documented) at patient's floor/unit and/or counseling patient: (1) Venous stasis ulcer Venous stasis ulcer site: calf Varicose vein presence: unspecified whether present Laterality: left Non-pressure ulcer stage: limited to breakdown of skin Qualified Code(s): I83.022 - Varicose veins of left lower extremity with ulcer of calf; L97.221 - Non-pressure chronic ulcer of left calf limited to breakdown of skin
[2019-11-27] MEDS ORDERED: PHARMACY GLYCEMIC MGMT CONSULT PRN (15:48)
--- NOTE | 2019-11-27 17:22 | Billing Data ---
Date of Service November 27, 2019 Coding Level of Care Code 30633 Subseq Hosp Care Lvl 3
[2019-11-27] MEDS ORDERED: LACTATED RINGER'S 500 ML IV ONE (19:28)
[2019-11-27] MEDS: ENOXAPARIN INJ 40 MG/0.4 ML SYR SQ SCH (20:20)
[2019-11-27] MEDS ORDERED: INSULIN GLARGINE SOLOSTAR 100 UNITS/ML 3 ML PEN SC SCH (21:00)
[2019-11-27] MEDS ORDERED: ALBUMIN 5% 250 ML IV ONE (21:15)
[2019-11-28] MEDS ORDERED: SODIUM CHLORIDE 0.9% 1000ML 500 ML IV ONE ×2 (00:05→02:22)
[2019-11-28] MEDS: PIPERACILLIN/TAZOBACTAM 4.5 GM in DEXTROSE 5% 100 ML IV SCH ×2 (00:06→08:02)
[2019-11-28] MEDS: FENOFIBRATE - ORDER AWAITING ACTION SCH ×3 (00:12→16:19)
[2019-11-28] MEDS: ALBUT/IPRATROP 3MG/0.5MG NEB 3 ML VIAL NEB SCH ×6 (00:45→19:23)
[2019-11-28] MEDS ORDERED: ALBUMIN 25% 100 ML IV STA (02:25)
[2019-11-28] MEDS: INSULIN ASPART 100 UNITS/ML 3 ML PEN SC SCH ×5 (04:42→20:38)
[2019-11-28 05:00] LABS: Eosinophils # (auto) 0.01 K/uL (0-0.5); Eosinophils % (auto) 0.1 %; Hematocrit (blood only) 48.5 % (42-52); Hemoglobin 14.5 g/dL (14.0-18.0); Immature Granulocytes # (auto) 0.02 K/uL (0.00-0.02); Immature Granulocytes % (auto) 0.2 %; Lymphocytes # (auto) 0.85 K/uL (1.2-3.4); Lymphocytes % (auto) 6.7 %; Mean Corpuscular Hemoglobin 28.9 pg (25-34); Mean Corpuscular Hgb Conc 29.9 g/dL (32-36); Mean Corpuscular Volume 96.8 fL (80-100); Mean Platelet Volume 9.7 fL (7.4-10.4); Monocytes # (auto) 1.39 K/uL (0.11-0.59); Monocytes % (auto) 10.9 %; Neutrophils # (auto) 10.47 K/uL (1.4-6.5); Neutrophils % (auto) 82.1 %; Platelet Count 222 K/uL (130-400); RDW Coefficient of Variation 15.7 % (11.5-14.5); RDW Standard Deviation 55.5 fL (36.4-46.3); Red Blood Count 5.01 M/uL (4.7-6.1); White Blood Count 12.74 K/uL (4.8-10.8)
[2019-11-28 05:37] LABS: BUN Creatinine Ratio 20.4 (10-20); Calcium 8.6 mg/dl (8.5-10.1); Creatinine Clr Calc Pharmacy 32.3 ml/min; Est GFR (African American) 21.1; Est GFR (Non-African American) 18.2; Magnesium 2.4 mg/dl (1.8-2.4); Phosphorus 6.6 mg/dl (2.5-4.9); Potassium 4.4 mmol/L (3.5-5.1)
[2019-11-28 06:01] LABS: iSTAT Allen Test Pass; iSTAT Arterial Blood Gas HCO3 31 meg/L (19-24); iSTAT Arterial Blood Gas pCO2 71 mmHg (35-46); iSTAT Arterial Blood Gas pH 7.25 (7.35-7.45); iSTAT Arterial Blood Gas pO2 84 mmHg (80-95); iSTAT Carbon Dioxide 33 mEq/l (24-31); iSTAT FiO2 60 %; iSTAT Site R Radial
[2019-11-28] MEDS ORDERED: NOREPINEPHRINE BIT INJ 8 MG in DEXTROSE 5% 500 ML IV SCH (06:06)
--- NOTE | 2019-11-28 07:25 | XRay Report ---
XR chest 1V portable CLINICAL HISTORY: Respiratory failure COMPARISON STUDY: 11/26/2019 FINDINGS: The heart is enlarged. There is right middle and lower lobe atelectasis/consolidation. Asso ciated right pleural fluid cannot be excluded.[There are minimal left perihilar airspace opacities. IMPRESSION: 1. Right middle and lower lobe atelectasis/consolidation. ACT 112: Negative or not required by law. Electronically signed by: Jonathan Morfin M.D. 11/28/2019 7:23 AM
--- NOTE | 2019-11-28 07:33 | Hospitalist Progress Note ---
Date of Service November 28, 2019 Assessment & Plan (1) Acute hypercapnic respiratory failure: 64 yo M admitted for JEFRY and acute hypoxic hypercapnic respiratory failure in the setting of a multifocal pneumonia. Acute hypercapnic respiratory failure: - ICU following. - Pt looks more alert, and is breathing better today. Moving more air in his lungs and has been deescalated from BiPAP this afternoon. - Currently saturating to 88-90% on 9L Oxymask. Continue to titrate and event ually wean oxygen as tolerated. - VBG with pH 7.25, pCO2 71. No tachycardia, pt not febrile, no leukocytosis. - Also expect an element of obesity hypoventilation syndrome also contributing to acute hypercapnic respiratory failure. Patient denies any history of obstructive sleep apnea however has not had a sleep study. - Serial ABGs; PPI and Abx (Zosyn, Doxy) for pneumonitis/pneumonia per Pulmonolo gy. Transferred to ICU given hypoxia and hypercapnea refractory to BiPAP on telemetry. Pt in discussion with Pulmonary expressed desire to be DNR/DNI. - Pt a chronic smoker and has been seen using chewing tobacco in the hospital multiple times even during BiPAP use. Recommend he discontinue smoking and chewing tobacco moving forward. Hypotension: - Overnight pt required pressors to maintain systolics of 80-90s. However pt subjectively no complaints of dizziness, pre-syncope. Feels tired but more awake today than yesterday. - BP this afternoon in 100s systolic on low dose norepi. - Pt bolused with resuscitative fluids 1.5L overnight. Holding fluids at this time. Acute kidney failure: - Pt's baseline 1.2; this admission up to 3.37. - Strict Is/Os with luevano, avoid renal toxins. - Nephrology following. Continue to hold diuretics. Renal ultrasound negative. Venous stasis ulcer of left leg: - WBC today 12.74 from 10.44 yesterday. D/c'ed steroids today per Pulmonology. Will continue to follow. - Left lower leg recently debrided by wound care and found to be growing stenotrophomonas. - Same site grew Enterococcus faecalis 10/16/2019. - Pt currently on Zosyn and doxycycline which will cover wound bacteria. - Wound care consult placed. - Encourage ambulation when able, compression wraps. CODE STATUS: DNR/DNI, however not against pressor support. FEN/GI: NPO. DVT ppx: Lovenox 40mg daily. Dispo: ICU. (2) SOB (shortness of breath): (3) CHF (congestive heart failure): (4) Venous stasis ulcer: (5) Acute kidney failure: (6) Hypotension: (7) GERD without esophagitis: (8) Diabetes: (9) High cholesterol: (10) Hypertension: Supervising Physician Co-Signing Physician Notes I personally examined the patient and verified all park points of history and exam, discussed case, and agree with decision making with Dr Vigil. Has no complaints, but also had no complaints yesterday. Family now present and notes that he generally does not complain much. He denies chest pain denies shortness of breath denies any symptoms whatsoever. Updated patient and family extensively. Answered all questions to the best my ability. Family did note that he was a little bit off mentally today. Vitals noted, in general he is awake and alert looking brighter than yesterday and in no distress. He is now on an oxygen mask. Lungs show much better air movement throughout difficult to discern rales rhonchi or wheezes, but at least I am able to appreciate air entry today. No accessory muscle use good effort. Shows no focal neuro deficits. Skin shows no rashes no pallor or icterus Acute on presumably chronic mixed hypercapnic and hypoxic respiratory failureinitially thought to be related to acute on chronic diastolic CHF, but after further review he actually has a pneumonia exacerbating a probable underlying chronic hypoventilation syndrome and/or COPD. moved to ICU and escalated supportive care - did not want intubated. fortunately doing better today - cautiously continue supportive care. Hypotension and JEFRY on CKD stage III more than likely related to volume depletion although could relate to septic shock as well continue IV fluids and follow closely, wean pressors. Continue current antibiotics Otherwise as above Subjective Pt on CPAP overnight, however today reports that while he is still tired that he feels more awake and alert today as compared to yesterday. No shortness of breath on CPAP, no CP, palpitations, abdominal pain. Pt reports no history of sleep study. Snores sometimes. Per nursing urine output has increased. Review of Systems Constitutional: no fever, no chills and no malaise Respiratory: no cough and no dyspnea Cardiovascular: no chest pain, no palpitations and no edema Gastrointestinal: no abdominal pain, no constipation and no diarrhea/loose stools Physical Exam Constitutional: WD/WN, vitals as above Respiratory: normal respiratory effort On 9L Oxymask saturating to 88-90%. Pt with lungs clear to auscultation and better air movement today Cardiovascular: Rate/Rhythm: regular rate and regular rhythm Heart Sounds: no murmur Extremities: + edema (3+ pitting edema b/l LE) Gastrointestinal (Abdomen): normal bowel sounds, soft, nontender, no hepatosplenomegaly Skin: no rashes, warm and dry Psychiatric: A+Ox3, euthymic affect Results & Data Vital Signs (Past 12 Hours) Vital Signs Temp Pulse Pulse Resp BP Pulse Ox 11/28/19 06:06 69 20 94 11/28/19 06:00 71 16 11/28/19 05:50 67 13 86/57 L 11/28/19 05:35 69 16 80/57 L 11/28/19 05:20 68 13 80/50 L 95 11/28/19 05:05 67 15 85/52 L 93 11/28/19 05:00 69 13 93 11/28/19 04:50 70 11 L 81/50 L 94 11/28/19 04:35 67 14 82/53 L 95 11/28/19 04:20 67 15 83/52 L 92 11/28/19 04:05 73 19 105/57 L 94 11/28/19 04:00 74 17 93 11/28/19 03:50 71 13 86/53 L 93 11/28/19 03:35 69 15 83/54 L 96 11/28/19 03:20 66 16 92/55 L 95 11/28/19 03:05 67 15 90/57 L 95 11/28/19 03:00 68 17 96 11/28/19 02:37 65 22 92 11/28/19 02:35 65 20 92 11/28/19 02:00 67 15 94 11/28/19 01:49 69 17 84/55 L 94 11/28/19 01:34 65 16 90/53 L 95 11/28/19 01:19 66 14 95/56 L 94 11/28/19 01:04 69 15 107/58 L 92 11/28/19 01:00 69 14 91 11/28/19 00:49 60 21 83/47 L 93 11/28/19 00:45 62 22 92 11/28/19 00:34 64 15 76/47 L 90 11/28/19 00:19 61 14 78/46 L 93 11/28/19 00:00 36.7 C 63 15 92 11/27/19 23:55 64 14 82/48 L 93 11/27/19 23:25 63 16 86/51 L 93 11/27/19 23:23 66 12 83/51 L 92 11/27/19 23:00 65 13 90 11/27/19 22:25 64 19 90/53 L 91 11/27/19 22:00 81 20 91 11/27/19 21:55 63 14 87/49 L 90 11/27/19 21:25 66 14 84/48 L 90 11/27/19 20:55 67 15 89/53 L 90 11/27/19 20:25 70 15 91/53 L 91 11/27/19 20:00 66 18 89 L 11/27/19 19:54 36.8 C 66 17 87/50 L 89 L 11/27/19 19:51 68 18 85/50 L 90 Laboratory Results Laboratory Results - last 24 hr 11/27/19 11/27/19 11/27/19 11:19 11:30 12:20 WBC RBC Hgb Hct MCV MCH MCHC RDW Std Deviation RDW Coeff of Bonifacio Plt Count MPV Immature Gran % (Auto) Neut % (Auto) Lymph % (Auto) Cherry % (Auto) Eos % (Auto) Baso % (Auto) Immature Gran # (Auto) Neut # (Auto) Lymph # (Auto) Cherry # (Auto) Eos # (Auto) Baso # (Auto) Sample Site POC pH POC pCO2 POC pO2 POC HCO3 POC Total CO2 POC Base Excess ABG pH 7.28 L ABG pCO2 67 H ABG pO2 60 L ABG HCO3 31 H POC ABG O2 Sat ABG O2 Saturation 88.4 L ABG Base Excess 1.8 Amanuel Test Pos Barometric Pressure 731.2 Oxygen Given 40% O2 Delivery Device POC FiO2 Sodium Potassium Chloride Carbon Dioxide Anion Gap BUN Creatinine Est Cr Clr Drug Dosing Est GFR ( Amer) Est GFR (Non-Af Amer) BUN/Creatinine Ratio Glucose POC Glucose 163 H Lactate Calcium Phosphorus Magnesium Total Bilirubin AST ALT Alkaline Phosphatase Troponin I Total Protein Albumin Globulin Albumin/Globulin Ratio Procalcitonin Urine Color Urine Appearance Urine pH Ur Specific Nunda Urine Protein Urine Glucose (UA) Urine Ketones Urine Blood Urine Nitrite Urine Bilirubin Urine Urobilinogen Ur Leukocyte Esterase Urine WBC (Auto) Urine RBC (Auto) U Hyaline Cast (Auto) U Epithel Cells (Auto) Urine Bacteria (Auto) Calcium Oxalate Crystal Granular Casts Waxy Casts Nasal Screen MRSA (PCR) Negative 11/27/19 11/27/19 11/27/19 14:19 14:19 14:19 WBC RBC Hgb Hct MCV MCH MCHC RDW Std Deviation RDW Coeff of Bonifacio Plt Count MPV Immature Gran % (Auto) Neut % (Auto) Lymph % (Auto) Cherry % (Auto) Eos % (Auto) Baso % (Auto) Immature Gran # (Auto) Neut # (Auto) Lymph # (Auto) Cherry # (Auto) Eos # (Auto) Baso # (Auto) Sample Site POC pH POC pCO2 POC pO2 POC HCO3 POC Total CO2 POC Base Excess ABG pH ABG pCO2 ABG pO2 ABG HCO3 POC ABG O2 Sat ABG O2 Saturation ABG Base Excess Amanuel Test Barometric Pressure Oxygen Given O2 Delivery Device POC FiO2 Sodium 136 Potassium 4.3 Chloride 102 Carbon Dioxide 29 Anion Gap 5.0 BUN 63 H Creatinine 2.61 H D Est Cr Clr Drug Dosing 41.7 Est GFR ( Amer) 28.8 Est GFR (Non-Af Amer) 24.8 BUN/Creatinine Ratio 24.1 H Glucose 164 H POC Glucose Lactate 1.1 Calcium 8.5 Phosphorus Magnesium Total Bilirubin 0.6 AST 20 ALT 23 Alkaline Phosphatase 37 L Troponin I 0.043 Total Protein 6.8 Albumin 2.4 L Globulin 4.4 H Albumin/Globulin Ratio 0.5 L Procalcitonin 0.26 Urine Color Urine Appearance Urine pH Ur Specific Nunda Urine Protein Urine Glucose (UA) Urine Ketones Urine Blood Urine Nitrite Urine Bilirubin Urine Urobilinogen Ur Leukocyte Esterase Urine WBC (Auto) Urine RBC (Auto) U Hyaline Cast (Auto) U Epithel Cells (Auto) Urine Bacteria (Auto) Calcium Oxalate Crystal Granular Casts Waxy Casts Nasal Screen MRSA (PCR) 11/27/19 11/27/19 11/27/19 16:01 20:04 23:33 WBC RBC Hgb Hct MCV MCH MCHC RDW Std Deviation RDW Coeff of Bonifacio Plt Count MPV Immature Gran % (Auto) Neut % (Auto) Lymph % (Auto) Cherry % (Auto) Eos % (Auto) Baso % (Auto) Immature Gran # (Auto) Neut # (Auto) Lymph # (Auto) Cherry # (Auto) Eos # (Auto) Baso # (Auto) Sample Site POC pH POC pCO2 POC pO2 POC HCO3 POC Total CO2 POC Base Excess ABG pH ABG pCO2 ABG pO2 ABG HCO3 POC ABG O2 Sat ABG O2 Saturation ABG Base Excess Amanuel Test Barometric Pressure Oxygen Given O2 Delivery Device POC FiO2 Sodium Potassium Chloride Carbon Dioxide Anion Gap BUN Creatinine Est Cr Clr Drug Dosing Est GFR ( Amer) Est GFR (Non-Af Amer) BUN/Creatinine Ratio Glucose POC Glucose 163 H 162 H 177 H Lactate Calcium Phosphorus Magnesium Total Bilirubin AST ALT Alkaline Phosphatase Troponin I Total Protein Albumin Globulin Albumin/Globulin Ratio Procalcitonin Urine Color Urine Appearance Urine pH Ur Specific Nunda Urine Protein Urine Glucose (UA) Urine Ketones Urine Blood Urine Nitrite Urine Bilirubin Urine Urobilinogen Ur Leukocyte Esterase Urine WBC (Auto) Urine RBC (Auto) U Hyaline Cast (Auto) U Epithel Cells (Auto) Urine Bacteria (Auto) Calcium Oxalate Crystal Granular Casts Waxy Casts Nasal Screen MRSA (PCR) 11/28/19 11/28/19 11/28/19 04:14 04:14 04:14 WBC 12.74 H RBC 5.01 Hgb 14.5 Hct 48.5 MCV 96.8 MCH 28.9 MCHC 29.9 L RDW Std Deviation 55.5 H RDW Coeff of Bonifacio 15.7 H Plt Count 222 MPV 9.7 Immature Gran % (Auto) 0.2 Neut % (Auto) 82.1 Lymph % (Auto) 6.7 Cherry % (Auto) 10.9 Eos % (Auto) 0.1 Baso % (Auto) 0.0 Immature Gran # (Auto) 0.02 Neut # (Auto) 10.47 H Lymph # (Auto) 0.85 L Cherry # (Auto) 1.39 H Eos # (Auto) 0.01 Baso # (Auto) 0.00 Sample Site POC pH POC pCO2 POC pO2 POC HCO3 POC Total CO2 POC Base Excess ABG pH ABG pCO2 ABG pO2 ABG HCO3 POC ABG O2 Sat ABG O2 Saturation ABG Base Excess Amanuel Test Barometric Pressure Oxygen Given O2 Delivery Device POC FiO2 Sodium 139 Potassium 4.4 Chloride 101 Carbon Dioxide 32 Anion Gap 6.0 BUN 69 H Creatinine 3.37 H D Est Cr Clr Drug Dosing 32.3 Est GFR ( Amer) 21.1 Est GFR (Non-Af Amer) 18.2 BUN/Creatinine Ratio 20.4 H Glucose 137 H POC Glucose Lactate Calcium 8.6 Phosphorus 6.6 H Magnesium 2.4 Total Bilirubin AST ALT Alkaline Phosphatase Troponin I Total Protein Albumin Globulin Albumin/Globulin Ratio Procalcitonin 0.31 Urine Color Urine Appearance Urine pH Ur Specific Nunda Urine Protein Urine Glucose (UA) Urine Ketones Urine Blood Urine Nitrite Urine Bilirubin Urine Urobilinogen Ur Leukocyte Esterase Urine WBC (Auto) Urine RBC (Auto) U Hyaline Cast (Auto) U Epithel Cells (Auto) Urine Bacteria (Auto) Calcium Oxalate Crystal Granular Casts Waxy Casts Nasal Screen MRSA (PCR) 11/28/19 11/28/19 11/28/19 04:41 05:49 07:37 WBC RBC Hgb Hct MCV MCH MCHC RDW Std Deviation RDW Coeff of Bonifacio Plt Count MPV Immature Gran % (Auto) Neut % (Auto) Lymph % (Auto) Cherry % (Auto) Eos % (Auto) Baso % (Auto) Immature Gran # (Auto) Neut # (Auto) Lymph # (Auto) Cherry # (Auto) Eos # (Auto) Baso # (Auto) Sample Site R Radial POC pH 7.25 L POC pCO2 71 H POC pO2 84 POC HCO3 31 H POC Total CO2 33 H POC Base Excess 3.0 H ABG pH ABG pCO2 ABG pO2 ABG HCO3 POC ABG O2 Sat 94.0 ABG O2 Saturation ABG Base Excess Amanuel Test Pass Barometric Pressure Oxygen Given O2 Delivery Device BIPAP POC FiO2 60 Sodium Potassium Chloride Carbon Dioxide Anion Gap BUN Creatinine Est Cr Clr Drug Dosing Est GFR ( Amer) Est GFR (Non-Af Amer) BUN/Creatinine Ratio Glucose POC Glucose 124 H 120 H Lactate Calcium Phosphorus Magnesium Total Bilirubin AST ALT Alkaline Phosphatase Troponin I Total Protein Albumin Globulin Albumin/Globulin Ratio Procalcitonin Urine Color Urine Appearance Urine pH Ur Specific Nunda Urine Protein Urine Glucose (UA) Urine Ketones Urine Blood Urine Nitrite Urine Bilirubin Urine Urobilinogen Ur Leukocyte Esterase Urine WBC (Auto) Urine RBC (Auto) U Hyaline Cast (Auto) U Epithel Cells (Auto) Urine Bacteria (Auto) Calcium Oxalate Crystal Granular Casts Waxy Casts Nasal Screen MRSA (PCR) 11/28/19 09:05 WBC RBC Hgb Hct MCV MCH MCHC RDW Std Deviation RDW Coeff of Bonifacio Plt Count MPV Immature Gran % (Auto) Neut % (Auto) Lymph % (Auto) Cherry % (Auto) Eos % (Auto) Baso % (Auto) Immature Gran # (Auto) Neut # (Auto) Lymph # (Auto) Cherry # (Auto) Eos # (Auto) Baso # (Auto) Sample Site POC pH POC pCO2 POC pO2 POC HCO3 POC Total CO2 POC Base Excess ABG pH ABG pCO2 ABG pO2 ABG HCO3 POC ABG O2 Sat ABG O2 Saturation ABG Base Excess Amanuel Test Barometric Pressure Oxygen Given O2 Delivery Device POC FiO2 Sodium Potassium Chloride Carbon Dioxide Anion Gap BUN Creatinine Est Cr Clr Drug Dosing Est GFR ( Amer) Est GFR (Non-Af Amer) BUN/Creatinine Ratio Glucose POC Glucose Lactate Calcium Phosphorus Magnesium Total Bilirubin AST ALT Alkaline Phosphatase Troponin I Total Protein Albumin Globulin Albumin/Globulin Ratio Procalcitonin Urine Color Yellow Urine Appearance Clear Urine pH 5.0 Ur Specific Nunda 1.021 Urine Protein 1+ H Urine Glucose (UA) Negative Urine Ketones Negative Urine Blood 3+ H Urine Nitrite Negative Urine Bilirubin Negative Urine Urobilinogen Negative Ur Leukocyte Esterase 1+ H Urine WBC (Auto) 10-30 H Urine RBC (Auto) >30 H U Hyaline Cast (Auto) 5-10 H U Epithel Cells (Auto) >30 H Urine Bacteria (Auto) Negative Calcium Oxalate Crystal Present A Granular Casts 1-5 H Waxy Casts 1-5 H Nasal Screen MRSA (PCR) Medications Administered Current Medications Acetaminophen (Tylenol) 650 mg PO Q4H PRN PRN Reason: Pain or Fever Stop: 12/24/19 19:31 Last Admin: 11/26/19 12:37 Dose: 650 mg Documented by: Albuterol (Duoneb) 3 ml NEB Q4R [facility] Stop: 12/26/19 22:59 Last Admin: 11/28/19 07:17 Dose: 3 ml Documented by: Aspirin ([facility]rin E[facility]ab) [facility] [place] Stop: 12/25/19 08:59 Last Admin: 11/28/19 09:15 Dose: 81 mg Documented by: Atorvastatin Calcium (Lipitor) 40 [facility] [place] Stop: 12/25/19 08:59 Last Admin: 11/28/19 10:09 Dose: 40 mg Documented by: Dextrose (Dextrose 50%) 25 - 50 ml IV UD PRN; Protocol PRN Reason: Hypoglycemia Protocol Stop: 12/24/19 19:31 Docusate Sodium (Colace) 100 mg PO BID PRN PRN Reason: Constipation Stop: 12/24/19 19:31 Famotidine (Pepcid) 40 mg PO QAM [facility] Stop: 12/25/19 08:59 Last Admin: 11/28/19 09:15 Dose: 40 mg Documented by: Glucagon (Glucagen) 1 mg SQ UD PRN; Protocol PRN Reason: Hypoglycemia Protocol Stop: 12/24/19 19:31 Glucose (Dex4 Glucose) 4 - 8 tabs PO UD PRN; Protocol PRN Reason: Hypoglycemia Protocol Stop: 12/24/19 19:31 Glucose (Glucose 40%) 15 - 30 gm PO UD PRN; Protocol PRN Reason: Hypoglycemia Protocol Stop: 12/24/19 19:31 Lactated Ringer's (Lr) 1,000 mls @ 100 mls/hr IV .Q10H [facility] Last Infusion: 11/27/19 14:00 Dose: 0 mls/hr Documented by: Norepinephrine Bitartrate 8 mg (/ Dextrose) 508 mls @ 17.328 mls/hr IV .Q24H [facility]; Protocol Stop: 12/28/19 06:05 Last Titration: 11/28/19 07:25 Dose: 0.03 mcg/kg/min, 17.3 mls/hr Documented by: Ceftazidime 1,000 mg/ Dextrose 50 mls @ 100 mls/hr IV Q12H [facility] Stop: 12/08/19 21:59 Ceftazidime 2,000 mg/ Dextrose 60 mls @ 120 mls/hr IV NOW ONE Stop: 11/28/19 11:29 Heparin Sodium (Porcine) 7,500 (units/ Syringe) 0.75 mls @ 0 mls/sec SQ Q8 [facility] Stop: 12/28/19 13:59 Insulin Aspart (Novolog Flexpen) 0 units SC Q4 [facility] Stop: 12/27/19 15:59 Last Admin: 11/28/19 07:38 Dose: Not Given Documented by: Insulin Glargine (Lantus Solostar Pen) 0 units SC Q12H [facility]; Protocol Stop: 12/27/19 19:59 Last Admin: 11/28/19 08:00 Dose: 9 units Documented by: Lisinopril (Zestril) 40 mg PO DAILY [facility] Stop: 12/25/19 08:59 Last Admin: 11/26/19 07:47 Dose: 40 mg Documented by: Miscellaneous (Order Awaiting Action) 1 ea N/A QS [facility] Stop: 12/25/19 00:00 Last Admin: 11/28/19 07:59 Dose: Not Given Documented by: Miscellaneous (Carbohydrates For Hypoglycemia) 15 - 30 gm PO UD PRN PRN Reason: Hypoglycemia Protocol Stop: 12/24/19 19:31 Miscellaneous (Pending Order) 1 ea N/A Q4 [facility] Stop: 12/27/19 15:59 Last Admin: 11/28/19 07:50 Dose: Not Given Documented by: Miscellaneous Information (Consult Glycemic Management Pharmacy) 1 ea N/A UD PRN PRN Reason: Consult Stop: 12/27/19 15:47 Ondansetron HCl (Zofran) 4 mg IV Q6H PRN PRN Reason: Nausea Stop: 12/24/19 19:31 Polyethylene Glycol (Miralax Powder Packet) 17 gm PO DAILY PRN PRN Reason: Constipation Stop: 12/24/19 19:31 Resident Activity Tracking Resident Involvement: Resident Care Provided Care Provided: Adult Hospital Medicine (1) Diabetes Diabetes mellitus complication status: without complication Diabetes mellitus terminal makeup operator insulin use: without terminal makeup operator use Diabetes mellitus type: type 2 Qualified Code(s): E11.9 - Type 2 diabetes mellitus without complications (2) CHF (congestive heart failure) Heart failure chronicity: unspecified Heart failure type: unspecified Qualified Code(s): I50.9 - Heart failure, unspecified (3) Venous stasis ulcer Laterality: left Non-pressure ulcer stage: limited to breakdown of skin Varicose vein presence: unspecified whether present Venous stasis ulcer site: calf Qualified Code(s): I83.022 - Varicose veins of left lower extremity with ulcer of calf; L97.221 - Non-pressure chronic ulcer of left calf limited to breakdown of skin (4) Hypertension Hypertension type: essential hypertension Qualified Code(s): I10 - Essential (primary) hypertension
[2019-11-28] MEDS: INSULIN GLARGINE SOLOSTAR 100 UNITS/ML 3 ML PEN SC SCH ×2 (08:00→20:41)
[2019-11-28] MEDS ORDERED: methylPREDNISolone 40 MG in SYRINGE 0 ML IV SCH (09:00)
[2019-11-28] MEDS: DOXYCYCLINE HYCLATE 100 MG in DEXTROSE 5% 100 ML IV SCH (09:14)
[2019-11-28] MEDS: ASPIRIN 81 MG ECTAB PO SCH (09:15)
[2019-11-28] MEDS: FAMOTIDINE 40 MG TABLET PO SCH (09:15)
[2019-11-28 09:20] LABS: Appearance Urine Clear (Clear); Bacteria Urine Automated Negative (Negative); Bilirubin Urine Negative (Negative); Blood Urine 3+ (Negative); Color Urine Yellow; Epithelial Cell Urine Auto >30 /lpf (0-5); Glucose Urine UA Negative (Negative); Ketones Urine Negative (Negative); Leukocyte Esterase Urine 1+ (Negative); Nitrite Urine Negative (Negative); Protein Urine 1+ (Negative); RBC Urine Automated >30 /hpf (0-4); Specific Gravity Urine 1.021 (1.000-1.030); Urobilinogen Urine Negative (Negative)
--- NOTE | 2019-11-28 09:33 | Critical Care Progress Note ---
Date of Service November 28, 2019 Assessment & Plan (1) Acute hypercapnic respiratory failure: Patient seems slightly improved today despite being on low doses of levo fed. His urine output has picked up a bit. His creatinine did worsen overnight. He was hypotensive overnight. We are running pressors peripherally for now given that they are very low. He is mentating okay. We can likely give him a break from the BiPAP. Aim to keep sats around 88 to 90%. He does have vasodilatory shock likely related to sepsis. We are treating pneumonia. He also has cellulitis in his legs and has a history of stenotrophomonas. His procalcitonin yesterday was 0.31. Continue Zosyn and doxycycline. He is currently on steroids for unclear reasons. We will stop this today. Remain in the ICU for today. I have personally spent 30 minutes of critical care time in the direct management of this patient. This is a life/limb threatening event. This includes time spent evaluating patient, direct bedside care, chart review, placing orders, interpretation of diagnostic studies, discussion with consultants, patient, and family members, as well as other required patient management activities. This time is exclusive of all separately billable procedures, and teaching time and separate from and in addition to any other critical care service time. Thank you for allowing us to participate in the care of this patient. (2) CHF (congestive heart failure): (3) Cellulitis: (4) Congestive heart failure: (5) Acute kidney failure: (6) Septic shock: Subjective Patient is sitting in bed today with BiPAP on. He appears more awake and alert than yesterday. I did address the CODE STATUS again with him and he again indicated to me that he would wish to be a DO NOT RESUSCITATE and DO NOT INTUBATE. He denies any chest pain currently. He does note that he is tired. No nausea or vomiting. Physical Exam Constitutional: Morbidly obese. No apparent distress. Currently has a BiPAP mask in place. Eyes: PERRL, conjunctivae normal, anicteric sclerae Respiratory: Diminished at the bases. Otherwise clear to auscultation. Cardiovascular: 4+ pitting edema bilateral lower extremities. No murmurs rubs or gallops. Gastrointestinal (Abdomen): normal bowel sounds, soft, nontender, no hepatosplenomegaly Neurologic: PERRL, EOMI, accommodation nl, no face palsy, no dysarthria Results & Data Vital Signs (Past 12 Hours) Vital Signs Temp Pulse Pulse Resp BP Pulse Ox 11/28/19 08:20 75 18 114/69 94 11/28/19 08:05 79 21 102/59 L 95 11/28/19 08:00 71 11/28/19 07:50 79 88/55 L 98 11/28/19 07:35 78 21 90/57 L 96 11/28/19 07:27 72 15 111/71 11/28/19 07:21 74 10 L 111/71 98 11/28/19 07:20 73 73 22 97 11/28/19 07:10 73 26 H 92/60 L 94 11/28/19 07:05 79 17 122/98 11/28/19 07:04 84 22 88/72 L 11/28/19 06:51 72 16 11/28/19 06:06 69 20 94 11/28/19 06:00 71 16 11/28/19 05:50 67 13 86/57 L 11/28/19 05:35 69 16 80/57 L 11/28/19 05:20 68 13 80/50 L 95 11/28/19 05:05 67 15 85/52 L 93 11/28/19 05:00 69 13 93 11/28/19 04:50 70 11 L 81/50 L 94 11/28/19 04:35 67 14 82/53 L 95 11/28/19 04:20 67 15 83/52 L 92 11/28/19 04:05 73 19 105/57 L 94 11/28/19 04:00 74 17 93 11/28/19 03:50 71 13 86/53 L 93 11/28/19 03:35 69 15 83/54 L 96 11/28/19 03:20 66 16 92/55 L 95 11/28/19 03:05 67 15 90/57 L 95 11/28/19 03:00 68 17 96 11/28/19 02:37 65 22 92 11/28/19 02:35 65 20 92 11/28/19 02:00 67 15 94 11/28/19 01:49 69 17 84/55 L 94 11/28/19 01:34 65 16 90/53 L 95 11/28/19 01:19 66 14 95/56 L 94 11/28/19 01:04 69 15 107/58 L 92 11/28/19 01:00 69 14 91 11/28/19 00:49 60 21 83/47 L 93 11/28/19 00:45 62 22 92 11/28/19 00:34 64 15 76/47 L 90 11/28/19 00:19 61 14 78/46 L 93 11/28/19 00:00 98.1 F 63 15 92 11/27/19 23:55 64 14 82/48 L 93 11/27/19 23:25 63 16 86/51 L 93 11/27/19 23:23 66 12 83/51 L 92 11/27/19 23:00 65 13 90 11/27/19 22:25 64 19 90/53 L 91 11/27/19 22:00 81 20 91 11/27/19 21:55 63 14 87/49 L 90 I personally reviewed the patient's pertinent labs, chest imaging and pertinent notes Coding Level of Care Code Critical Care 1st 30-74 mins Diagnoses Acute hypercapnic respiratory failure J96.02 CHF (congestive heart failure) I50.9 Heart failure chronicity: unspecified Heart failure type: unspecified Cellulitis L03.116 Site of cellulitis: extremity Site of cellulitis of extremity: lower extremity Laterality: left Congestive heart failure I50.9 Acute kidney failure N17.9 Septic shock A41.9; R65.21 Time Spent (min) 30 (1) CHF (congestive heart failure) Heart failure chronicity: unspecified Heart failure type: unspecified Qualified Code(s): I50.9 - Heart failure, unspecified (2) Cellulitis Site of cellulitis: extremity Site of cellulitis of extremity: lower extremity Laterality: left Qualified Code(s): L03.116 - Cellulitis of left lower limb
--- NOTE | 2019-11-28 09:36 | Ultrasound Report ---
RENAL ULTRASOUND HISTORY: Acute kidney injury. COMPARISON: None. FINDINGS: Suboptimal evaluation of the kidneys due to the patient's body habitus. Right kidney: 13.8 cm. Trace perinephric fluid/edema. No hydronephrosis. Normal corticomedullary diff erentiation and cortical thickness. Left kidney: 14.8 cm. Trace perinephric fluid/edema. No hydronephrosis. Normal corticomedullary diffe rentiation and cortical thickness. Bladder: Decompressed by Tabor catheter and not visualized. IMPRESSION: 1. Normal kidneys. 2. Trace bilateral perinephric edema/fluid. ACT 112: Negative or not required by law. Electronically signed by: Dayday Buchanan M.D. 11/28/2019 9:35 AM
[2019-11-28 09:46] LABS: Calcium Oxalate Crystals Urine Present (None Prsent)
[2019-11-28] MEDS: ATORVASTATIN 40 MG TAB PO SCH (10:09)
--- NOTE | 2019-11-28 10:37 | Nephrology Progress Note ---
Date of Service November 28, 2019 Assessment & Plan (1) Acute kidney failure: 64 Y O M with HTN, DM, diastolic cHF, Morbid obesity, admitted with sepsis with multifocal Pneumonia. Developed Oliguric JEFRY with hypotension, NSAID, ACEI. H/O diastolic CHF and chronic diuretics. JEFRY hemodynamic with hypotension, diuretic use. No UA or renal imaging available, but intrinsic renal disease or postrenal obstruction seems unlikely although pt has h/o Nephrolithiasis. Renal function continues to worsen, however, electrolyte acceptable and urine output improved. Blood pressure slightly improved with and MAP above 65 on pressor --UA and renal ultrasound, if any evidence of significant proteinuria hematuria, may need further workup --monitor urine output and renal panel closely --would continue to hold diuretics for now --continue to hold ACEI/ARB Will follow (2) Hypotension: (3) Acute hypercapnic respiratory failure: (4) Venous stasis ulcer: (5) Oliguria: Subjective Jonny Was seen and examined in his room this morning. He has some awake, alert, answering question appropriately. Denies any specific symptoms. Urine output improved to more than 50 mL/hour. Renal function worsened with creatinine now 3.4, electrolyte acceptable. Blood pressure has been low and started on Levophed this morning. Review of Systems Review of Systems: All systems reviewed & are unremarkable except as noted in HPI & below Physical Exam Constitutional: + morbidly obese; no acute distress Respiratory: normal respiratory effort; no respiratory distress Auscultation: + diminished lung sounds Cardiovascular: Rate/Rhythm: regular rate and regular rhythm Heart Sounds: normal S1 and normal S2 Extremities: + edema Neurologic: moves all extremities and awake; not confused Psychiatric: A+Ox3, euthymic affect Results & Data Vital Signs (Past 12 Hours) Vital Signs Temp Pulse Pulse Resp BP Pulse Ox 11/28/19 08:20 75 18 114/69 94 11/28/19 08:05 79 21 102/59 L 95 11/28/19 08:00 71 11/28/19 07:50 79 88/55 L 98 11/28/19 07:35 78 21 90/57 L 96 11/28/19 07:27 72 15 111/71 11/28/19 07:21 74 10 L 111/71 98 11/28/19 07:20 73 73 22 97 11/28/19 07:10 73 26 H 92/60 L 94 11/28/19 07:05 79 17 122/98 11/28/19 07:04 84 22 88/72 L 11/28/19 06:51 72 16 11/28/19 06:06 69 20 94 11/28/19 06:00 71 16 11/28/19 05:50 67 13 86/57 L 11/28/19 05:35 69 16 80/57 L 11/28/19 05:20 68 13 80/50 L 95 11/28/19 05:05 67 15 85/52 L 93 11/28/19 05:00 69 13 93 11/28/19 04:50 70 11 L 81/50 L 94 11/28/19 04:35 67 14 82/53 L 95 11/28/19 04:20 67 15 83/52 L 92 11/28/19 04:05 73 19 105/57 L 94 11/28/19 04:00 74 17 93 11/28/19 03:50 71 13 86/53 L 93 11/28/19 03:35 69 15 83/54 L 96 11/28/19 03:20 66 16 92/55 L 95 11/28/19 03:05 67 15 90/57 L 95 11/28/19 03:00 68 17 96 11/28/19 02:37 65 22 92 11/28/19 02:35 65 20 92 11/28/19 02:00 67 15 94 11/28/19 01:49 69 17 84/55 L 94 11/28/19 01:34 65 16 90/53 L 95 11/28/19 01:19 66 14 95/56 L 94 11/28/19 01:04 69 15 107/58 L 92 11/28/19 01:00 69 14 91 11/28/19 00:49 60 21 83/47 L 93 11/28/19 00:45 62 22 92 11/28/19 00:34 64 15 76/47 L 90 11/28/19 00:19 61 14 78/46 L 93 11/28/19 00:00 36.7 C 63 15 92 11/27/19 23:55 64 14 82/48 L 93 11/27/19 23:25 63 16 86/51 L 93 11/27/19 23:23 66 12 83/51 L 92 11/27/19 23:00 65 13 90 PG Care Time/CCT Total # of Minutes Spent Total Time Spent with Patient: Total time spent is greater than 50% in coordination of care (as documented) at patient's floor/unit and/or counseling patient: (1) Venous stasis ulcer Venous stasis ulcer site: calf Varicose vein presence: unspecified whether present Laterality: left Non-pressure ulcer stage: limited to breakdown of skin Qualified Code(s): I83.022 - Varicose veins of left lower extremity with ulcer of calf; L97.221 - Non-pressure chronic ulcer of left calf limited to breakdown of skin
--- NOTE | 2019-11-28 13:25 | Pharmacy Report ---
Pharmacy Glycemic Short Note 2 - Date of Service November 28, 2019 - Glycemic Short BSG Results (Last 24 hours): 11/27/19 11/27/19 11/27/19 14:19 16:01 20:04 Glucose 164 H POC Glucose 163 H 162 H 11/27/19 11/28/19 11/28/19 23:33 04:14 04:41 Glucose 137 H POC Glucose 177 H 124 H 11/28/19 11/28/19 07:37 12:08 Glucose POC Glucose 120 H 136 H OUTPATIENT ANTIDIABETIC REGIMEN: * Metformin 500mg PO Q AM * A1c = 7.2% 10/09/19 ASSESSMENT: * Type 2 diabetic, reasonably well controlled with metformin monotherapy, admitted to ICU secondary to hypercapnic resp failure secondary to PNA + EDISON as well as septic shock * Pt remains NPO at this time * Receiving IV ABX, norepi pressor support, and IV solu-medrol * Fasting BSG this AM = 120 with 18 units basal insulin on board * Will continue weight based (using adjusted body weight) SQ basal/bolus dosing at this time. Will utilize dosing scale for Lantus given NPO status but significant stressors PLAN FOR INPATIENT GLYCEMIC CONTROL: * Hold outpatient oral diabetes medications (metformin) * Basal insulin * Lantus SQ BID per scale * 0 units if BSG less than 110 * 9 units if BSG 110-200 * 18 units if BSG above 200 * Bolus insulin * NovoLog per scale Q 4 hrs * Goal Range: Low 110 mg/dL - High 140 mg/dL * Correction Factor: 20 mg/dL/unit * Nutritional / Prandial insulin per carb ratio of 1 unit per 8 grams CHO consumed PLAN FOR DISCHARGE: * to be determined
[2019-11-28] MEDS: HEPARIN SODIUM (PORCINE) 7,500 UNITS in SYRINGE 0 ML SQ SCH ×2 (14:07→22:55)
--- NOTE | 2019-11-28 16:59 | Billing Data ---
Date of Service November 28, 2019 Coding Level of Care Code 32577 Subseq Hosp Care Lvl 2
[2019-11-28] MEDS ORDERED: DEXMEDETOMIDINE HCL 200 MCG in SODIUM CHLORIDE 0.9% 48 ML IV SCH (20:00)
[2019-11-28] MEDS ORDERED: ALBUT/IPRATROP 3MG/0.5MG NEB 3 ML VIAL NEB PRN (20:26)
[2019-11-28] MEDS ORDERED: MoRPHine SULFATE 2 MG/ML CARP IV STA (22:40)
[2019-11-29] MEDS: INSULIN ASPART 100 UNITS/ML 3 ML PEN SC SCH ×7 (00:27→23:40)
[2019-11-29] MEDS: FENOFIBRATE - ORDER AWAITING ACTION SCH ×4 (01:04→23:42)
[2019-11-29 03:29] LABS: iSTAT Allen Test Pass; iSTAT Arterial Blood Gas HCO3 36 meg/L (19-24); iSTAT Arterial Blood Gas pCO2 70 mmHg (35-46); iSTAT Arterial Blood Gas pH 7.33 (7.35-7.45); iSTAT Arterial Blood Gas pO2 99 mmHg (80-95); iSTAT Carbon Dioxide 38 mEq/l (24-31); iSTAT FiO2 60 %; iSTAT Site L Radial
[2019-11-29 04:43] LABS: Basophils # (auto) 0.01 K/uL (0-0.2); Basophils % (auto) 0.1 %; Hemoglobin 14.5 g/dL (14.0-18.0); Immature Granulocytes # (auto) 0.04 K/uL (0.00-0.02); Immature Granulocytes % (auto) 0.3 %; Lymphocytes # (auto) 0.63 K/uL (1.2-3.4); Lymphocytes % (auto) 5.1 %; Mean Corpuscular Hemoglobin 29.3 pg (25-34); Mean Corpuscular Hgb Conc 30.9 g/dL (32-36); Mean Corpuscular Volume 94.9 fL (80-100); Mean Platelet Volume 10.4 fL (7.4-10.4); Monocytes # (auto) 1.62 K/uL (0.11-0.59); Monocytes % (auto) 13.2 %; Neutrophils # (auto) 10.01 K/uL (1.4-6.5); Neutrophils % (auto) 81.3 %; Platelet Count 246 K/uL (130-400); RDW Coefficient of Variation 15.4 % (11.5-14.5); Red Blood Count 4.95 M/uL (4.7-6.1); White Blood Count 12.31 K/uL (4.8-10.8)
[2019-11-29 05:30] LABS: BUN Creatinine Ratio 31.1 (10-20); Calcium 8.9 mg/dl (8.5-10.1); Creatinine Clr Calc Pharmacy 53.3 ml/min; Est GFR (African American) 38.8; Est GFR (Non-African American) 33.4; Magnesium 2.5 mg/dl (1.8-2.4)
[2019-11-29] MEDS: HEPARIN SODIUM (PORCINE) 7,500 UNITS in SYRINGE 0 ML SQ SCH ×3 (06:03→20:43)
[2019-11-29] MEDS: ASPIRIN 81 MG ECTAB PO SCH (08:50)
[2019-11-29] MEDS: FAMOTIDINE 40 MG TABLET PO SCH (08:50)
[2019-11-29] MEDS: ATORVASTATIN 40 MG TAB PO SCH (08:50)
--- NOTE | 2019-11-29 10:22 | Nephrology Progress Note ---
Date of Service November 29, 2019 Assessment & Plan (1) Acute kidney failure: 64 Y O M with HTN, DM, diastolic cHF, Morbid obesity, admitted with sepsis with multifocal Pneumonia. Developed Oliguric JEFYR with hypotension, NSAID, ACEI. H/O diastolic CHF and chronic diuretics. JEFRY hemodynamic with hypotension, diuretic use. UA and renal imaging unremarkable. but intrinsic renal disease or postrenal obstruction seems unlikely although pt has h/o Nephrolithiasis. Renal function continues to worsen, however, electrolyte acceptable and urine output improved. Blood pressure slightly improved with and MAP above 65 on pressor. Renal function improved, has been having decent urine output, net negative more than 2 L. --patient seen to be in post ATN diuresis phase, having great urine output. Would monitor volume status, if continues to be significantly negative patient risk for getting volume depleted while recovering from JEFRY.. --monitor renal function with daily renal panel, expect renal function to continue to improve. --continue to hold ACEI/ARB Will follow (2) Hypotension: (3) Acute hypercapnic respiratory failure: (4) Venous stasis ulcer: (5) Oliguria: Subjective Jonny was seen examined in his room this morning. Awake, alert but there has been some confusion. Renal function continues to improve creatinine 2.0, has been having decent urine output in fact his net negative more than 2 L. Volume status improved significantly. Off of pressor. Review of Systems Review of Systems: All systems reviewed & are unremarkable except as noted in HPI & below Physical Exam Constitutional: + ill appearing and + morbidly obese; no acute distress Respiratory: normal respiratory effort, lungs clear to auscultation Cardiovascular: RRR, no murmur, no edema Neurologic: moves all extremities and awake; not confused Psychiatric: A+Ox3, euthymic affect Results & Data Vital Signs (Past 12 Hours) Vital Signs Temp Pulse Resp BP Pulse Ox 11/29/19 06:00 92 H 31 H 89 L 11/29/19 05:00 88 L 11/29/19 04:48 94 H 152/82 H 89 L 11/29/19 04:36 97 H 19 131/80 87 L 11/29/19 04:00 37.1 C 99 H 19 83 L 11/29/19 03:48 94 H 23 148/85 H 88 L 11/29/19 03:18 91 H 21 117/72 11/29/19 03:00 99 H 23 98 11/29/19 02:48 100 H 21 166/71 H 96 11/29/19 02:24 97 H 25 H 148/91 H 94 11/29/19 02:00 98 H 21 95 11/29/19 01:48 102 H 20 158/91 H 83 L 11/29/19 01:17 95 H 18 140/89 92 11/29/19 01:00 91 H 18 11/29/19 00:47 95 H 4 L 152/95 H 90 11/29/19 00:32 104 H 19 93 11/29/19 00:22 104 H 8 L 154/85 H 91 11/29/19 00:02 36.8 C 103 H 11/28/19 23:48 136/80 11/28/19 23:17 98 H 15 95/56 L 83 L 11/28/19 23:00 99 H 25 H 89 L 11/28/19 22:50 99 H 23 106/65 91 PG Care Time/CCT Total # of Minutes Spent Total Time Spent with Patient: Total time spent is greater than 50% in coordi nation of care (as documented) at patient's floor/unit and/or counseling patient: (1) Venous stasis ulcer Venous stasis ulcer site: calf Varicose vein presence: unspecified whether present Laterality: left Non-pressure ulcer stage: limited to breakdown of skin Qualified Code(s): I83.022 - Varicose veins of left lower extremity with ulcer of calf; L97.221 - Non-pressure chronic ulcer of left calf limited to breakdown of skin
--- NOTE | 2019-11-29 10:29 | Hospitalist Progress Note ---
Date of Service November 29, 2019 Assessment & Plan (1) Acute hypercapnic respiratory failure: 64 yo M admitted for JEFRY and acute hypoxic hypercapnic respiratory failure in the setting of a multifocal pneumonia. Acute hypercapnic respiratory failure: - Pt is DNR/DNI. - Pt currently delirious with increased oxygen demand overnight. Able to maintain some conversation but then will get sidetracked or answer incorrectly to questions. - Currently saturating to 86% on 15L Oxymask. Have called respiratory to resume BiPAP to help with hypercapnea. - VBG with pH 7.33, pCO2 70. Pt not febrile, no leukocytosis. Now tachycardic. - Also expect an element of obesity hypoventilation syndrome also contributing to acute hypercapnic respiratory failure. Patient denies any history of obstructive sleep apnea however has not had a sleep study. - Serial ABGs; PPI and Abx (ceftazidime, Doxy) for pneumonitis/pneumonia per Pulmonology. - Pt a chronic smoker and has been seen using chewing tobacco in the hospital multiple times even during BiPAP use. Recommend he discontinue smoking and chewing tobacco moving forward. - Restarted IV methylprednisalone 60mg q12h. - one to one as needed, pt has been taking off mask contributing to his delirium and hypoxia. Hypotension: - Overnight pt's pressors discontinued and blood pressure normotensive today. - Continue to monitor. Acute kidney failure: - Pt's baseline creatinine 1.2; today 2.04. - Strict Is/Os with luevano, avoid renal toxins. - Nephrology following. Continue to hold diuretics and KANDICE/ARB. Renal ultrasound negative. Monitor output. Venous stasis ulcer of left leg: - WBC today 12.74 from 10.44 yesterday. D/c'ed steroids today per Pulmonology. Will continue to follow. - Left lower leg recently debrided by wound care and found to be growing steno trophomonas. - Same site grew Enterococcus faecalis 10/16/2019. - Pt currently on ceftazidime and doxycycline which will cover wound bacteria. - Wound care consult placed. - Encourage ambulation when able, compression wraps. Tobacco abuse: - Pt with significant smoking and chewing history, chewing as recently as during this admission while on BiPAP. - Have given nicotine patches qday. CODE STATUS: DNR/DNI, however not against pressor support. FEN/GI: NPO. DVT ppx: Lovenox 40mg daily. Dispo: PCU Telemetry (2) SOB (shortness of breath): (3) CHF (congestive heart failure): (4) Venous stasis ulcer: (5) Acute kidney failure: (6) Hypotension: (7) GERD without esophagitis: (8) Diabetes: (9) High cholesterol: (10) Hypertension: Supervising Physician Co-Signing Physician Notes I personally examined the patient and verified all park points of history and exam, discussed case, and agree with decision making with Dr Vigil. He will relates that he feels lousy, but when asked to clarify what is making him feel lousy, he starts speaking in a string of zeros and ones. Offers no focal complaints. Vitals noted, in general he is awake and alert but appearing fatigued. HEENT normocephalic atraumatic mucous membranes moist. Lungs diminished air entry base right to up to about the mid lung otherwise clear with better air entry than 2 days ago but may be not quite as good as yesterday. Left lung clear no rales/rhonchi/wheezes similar air entry to the right upper lung mata. Neuro shows cranial nerves II through XII be grossly intact gross motor and sensory intact without any focal deficits. Skin shows no rashes no pallor or icterus. Acute on presumably chronic mixed hypercapnic and hypoxic respiratory failureinitially thought to be related to acute on chronic diastolic CHF, but after further review he actually has a pneumonia exacerbating a probable underlying chronic hypoventilation syndrome and/or COPD. cautiously continue supportive care with BiPAP to try to enhance ventilation (since he does not want intubated), nebulizer/incentive spirometry for pulmonary toilet, steroids for presumptive COPD treatment, antibiotics to cover for pneumonia. Hypotension and JEFRY on CKD stage III more than likely related to volume depletion although could relate to septic shock as wellthis has improved. Cautiously continue to follow closely. ABG this afternoon. Otherwise as above Subjective Pt reports feeling unwell but unable to clarify why. Answers questions in odd ways with answers that do not make sense (started talking in 0s and 1s on interview this AM). Denies SOB. History of tobacco abuse and daughter requesting nicotine patch for him. Review of Systems Constitutional: no fever, no chills and no malaise Respiratory: no cough and no dyspnea Cardiovascular: no chest pain, no palpitations and no edema Gastrointestinal: no abdominal pain, no constipation and no diarrhea/loose stools Physical Exam Constitutional: WD/WN, vitals as above Respiratory: normal respiratory effort On 15L Oxymask saturating to 86%. Pt decreased air movement at lung bases, better as compared to initial presentation however worse than yesterday Cardiovascular: Rate/Rhythm: regular rate and regular rhythm Heart Sounds: no murmur Extremities: + edema (3+ pitting edema b/l LE) Gastrointestinal (Abdomen): normal bowel sounds, soft, nontender, no hepatosplenomegaly Skin: no rashes, warm and dry Psychiatric: A+Ox3, euthymic affect Results & Data Vital Signs (Past 12 Hours) Vital Signs Temp Pulse Resp BP Pulse Ox 11/29/19 06:00 92 H 31 H 89 L 11/29/19 05:00 88 L 11/29/19 04:48 94 H 152/82 H 89 L 11/29/19 04:36 97 H 19 131/80 87 L 11/29/19 04:00 37.1 C 99 H 19 83 L 11/29/19 03:48 94 H 23 148/85 H 88 L 11/29/19 03:18 91 H 21 117/72 11/29/19 03:00 99 H 23 98 11/29/19 02:48 100 H 21 166/71 H 96 11/29/19 02:24 97 H 25 H 148/91 H 94 11/29/19 02:00 98 H 21 95 11/29/19 01:48 102 H 20 158/91 H 83 L 11/29/19 01:17 95 H 18 140/89 92 11/29/19 01:00 91 H 18 11/29/19 00:47 95 H 4 L 152/95 H 90 11/29/19 00:32 104 H 19 93 11/29/19 00:22 104 H 8 L 154/85 H 91 11/29/19 00:02 36.8 C 103 H 11/28/19 23:48 136/80 11/28/19 23:17 98 H 15 95/56 L 83 L 11/28/19 23:00 99 H 25 H 89 L 11/28/19 22:50 99 H 23 106/65 91 Laboratory Results Laboratory Results - last 24 hr 11/28/19 11/29/19 11/29/19 20:05 00:25 03:14 WBC RBC Hgb Hct MCV MCH MCHC RDW Std Deviation RDW Coeff of Bonifacio Plt Count MPV Immature Gran % (Auto) Neut % (Auto) Lymph % (Auto) Ramsey % (Auto) Eos % (Auto) Baso % (Auto) Immature Gran # (Auto) Neut # (Auto) Lymph # (Auto) Ramsey # (Auto) Eos # (Auto) Baso # (Auto) Sample Site L Radial POC pH 7.33 L POC pCO2 70 H POC pO2 99 H POC HCO3 36 H POC Total CO2 38 H POC Base Excess 10.0 H POC ABG O2 Sat 97.0 H Amanuel Test Pass O2 Delivery Device BIPAP POC FiO2 60 Sodium Potassium Chloride Carbon Dioxide Anion Gap BUN Creatinine Est Cr Clr Drug Dosing Est GFR ( Amer) Est GFR (Non-Af Amer) BUN/Creatinine Ratio Glucose POC Glucose 159 H 139 H Calcium Phosphorus Magnesium Specimen Hemolysis 11/29/19 11/29/19 11/29/19 04:22 04:32 04:32 WBC 12.31 H RBC 4.95 Hgb 14.5 Hct 47.0 MCV 94.9 MCH 29.3 MCHC 30.9 L RDW Std Deviation 53.0 H RDW Coeff of Bonifacio 15.4 H Plt Count 246 MPV 10.4 Immature Gran % (Auto) 0.3 Neut % (Auto) 81.3 Lymph % (Auto) 5.1 Ramsey % (Auto) 13.2 Eos % (Auto) 0.0 Baso % (Auto) 0.1 Immature Gran # (Auto) 0.04 H Neut # (Auto) 10.01 H Lymph # (Auto) 0.63 L Ramsey # (Auto) 1.62 H Eos # (Auto) 0.00 Baso # (Auto) 0.01 Sample Site POC pH POC pCO2 POC pO2 POC HCO3 POC Total CO2 POC Base Excess POC ABG O2 Sat Amanuel Test O2 Delivery Device POC FiO2 Sodium 144 Potassium 4.0 Chloride 108 H Carbon Dioxide 35 H Anion Gap 1.0 L BUN 63 H Creatinine 2.04 H D Est Cr Clr Drug Dosing 53.3 Est GFR ( Amer) 38.8 Est GFR (Non-Af Amer) 33.4 BUN/Creatinine Ratio 31.1 H Glucose 110 H POC Glucose 104 H Calcium 8.9 Phosphorus 3.3 D Magnesium 2.5 H Specimen Hemolysis 11/29/19 11/29/19 11/29/19 07:37 12:00 16:32 WBC RBC Hgb Hct MCV MCH MCHC RDW Std Deviation RDW Coeff of Bonifacio Plt Count MPV Immature Gran % (Auto) Neut % (Auto) Lymph % (Auto) Ramsey % (Auto) Eos % (Auto) Baso % (Auto) Immature Gran # (Auto) Neut # (Auto) Lymph # (Auto) Ramsey # (Auto) Eos # (Auto) Baso # (Auto) Sample Site POC pH POC pCO2 POC pO2 POC HCO3 POC Total CO2 POC Base Excess POC ABG O2 Sat Amanuel Test O2 Delivery Device POC FiO2 Sodium Potassium Chloride Carbon Dioxide Anion Gap BUN Creatinine Est Cr Clr Drug Dosing Est GFR ( Amer) Est GFR (Non-Af Amer) BUN/Creatinine Ratio Glucose POC Glucose 96 94 113 H Calcium Phosphorus Magnesium Specimen Hemolysis Medications Administered Current Medications Albuterol (Duoneb) 3 ml NEB Q6H PRN PRN Reason: Wheezing Stop: 12/28/19 20:29 Albuterol (Duoneb) 3 ml NEB Q4R [facility] Stop: 12/29/19 11:59 Last Admin: 11/29/19 15:40 Dose: 3 ml Documented by: Aspirin (Ecotrin Ectab) [facility] [place] Stop: 12/25/19 08:59 Last Admin: 11/29/19 08:50 Dose: Not Given Documented by: Atorvastatin Calcium (Lipitor) 40 mg PO QAM [facility] Stop: 12/25/19 08:59 Last Admin: 11/29/19 08:50 Dose: Not Given Documented by: Dextrose (Dextrose 50%) 25 - 50 ml IV UD PRN; Protocol PRN Reason: Hypoglycemia Protocol Stop: 12/24/19 19:31 Docusate Sodium (Colace) 100 mg PO BID PRN PRN Reason: Constipation Stop: 12/24/19 19:31 Doxycycline Hyclate (Vibramycin) 100 mg PO BID [facility]; Protocol Stop: 12/06/19 11:59 Last Admin: 11/29/19 12:54 Dose: 100 mg Documented by: Famotidine (Pepcid) 40 mg PO QAM [facility] Stop: 12/25/19 08:59 Last Admin: 11/29/19 08:50 Dose: Not Given Documented by: Glucagon (Glucagen) 1 mg SQ UD PRN; Protocol PRN Reason: Hypoglycemia Protocol Stop: 12/24/19 19:31 Glucose (Dex4 Glucose) 4 - 8 tabs PO UD PRN; Protocol PRN Reason: Hypoglycemia Protocol Stop: 12/24/19 19:31 Glucose (Glucose 40%) 15 - 30 gm PO UD PRN; Protocol PRN Reason: Hypoglycemia Protocol Stop: 12/24/19 19:31 Heparin Sodium (Porcine) 7,500 (units/ Syringe) 0.75 mls @ 0 mls/sec SQ Q8 [facility] Stop: 12/28/19 13:59 Last Admin: 11/29/19 14:58 Dose: 0.75 mls/sec Documented by: Ceftazidime 2,000 mg/ Dextrose 60 mls @ 120 mls/hr IV Q12H [facility] Stop: 12/08/19 21:59 Last Infusion: 11/29/19 10:04 Dose: Infused Documented by: Methylprednisolone 60 mg/ (Syringe) 0.96 mls @ 1.5 mls/min IV Q12 [facility] Stop: 12/29/19 20:59 Insulin Aspart (Novolog Flexpen) 0 units SC Q4 [facility] Stop: 12/27/19 15:59 Last Admin: 11/29/19 17:15 Dose: 2 units Documented by: Insulin Glargine (Lantus Solostar Pen) 0 units SC Q12H [facility]; Protocol Stop: 12/27/19 19:59 Last Admin: 11/28/19 20:41 Dose: 9 units Documented by: Lisinopril (Zestril) 40 mg PO DAILY [facility] Stop: 12/25/19 08:59 Last Admin: 11/26/19 07:47 Dose: 40 mg Documented by: Miscellaneous (Order Awaiting Action) 1 ea N/A QS [facility] Stop: 12/25/19 00:00 Last Admin: 11/29/19 16:49 Dose: Not Given Documented by: Miscellaneous (Carbohydrates For Hypoglycemia) 15 - 30 gm PO UD PRN PRN Reason: Hypoglycemia Protocol Stop: 12/24/19 19:31 Miscellaneous (Pending Order) 1 ea N/A Q4 [facility] Stop: 12/27/19 15:59 Last Admin: 11/29/19 16:49 Dose: Not Given Documented by: Miscellaneous (Remove Nicoderm Patch) 1 ea N/A DAILY@0859 [facility] Stop: 12/30/19 08:58 Miscellaneous Information (Consult Glycemic Management Pharmacy) 1 ea N/A UD PRN PRN Reason: Consult Stop: 12/27/19 15:47 Nicotine (Nicoderm Cq) 14 mg TD QAM [facility] Stop: 12/29/19 11:59 Last Admin: 11/29/19 12:50 Dose: 14 mg Documented by: Ondansetron HCl (Zofran) 4 mg IV Q6H PRN PRN Reason: Nausea Stop: 12/24/19 19:31 Resident Activity Tracking Resident Involvement: Resident Care Provided Care Provided: Adult Hospital Medicine (1) CHF (congestive heart failure) Heart failure chronicity: unspecified Heart failure type: unspecified Qualified Code(s): I50.9 - Heart failure, unspecified (2) Venous stasis ulcer Venous stasis ulcer site: calf Varicose vein presence: unspecified whether present Laterality: left Non-pressure ulcer stage: limited to breakdown of skin Qualified Code(s): I83.022 - Varicose veins of left lower extremity with ulcer of calf; L97.221 - Non-pressure chronic ulcer of left calf limited to breakdown of skin (3) Diabetes Diabetes mellitus type: type 2 Diabetes mellitus machine long goods helper insulin use: without fpc use Diabetes mellitus complication status: without complication Qualified Code(s): E11.9 - Type 2 diabetes mellitus without complications (4) Hypertension Hypertension type: essential hypertension Qualified Code(s): I10 - Essential (primary) hypertension
[2019-11-29 11:06] LABS: Phosphorus 3.3 mg/dl (2.5-4.9)
--- NOTE | 2019-11-29 12:46 | Pharmacy Report ---
Pharmacy Glycemic Short Note 2 - Date of Service November 29, 2019 - Glycemic Short BSG Results (Last 24 hours): 11/28/19 11/28/19 11/29/19 16:12 20:05 00:25 Glucose POC Glucose 154 H 159 H 139 H 11/29/19 11/29/19 11/29/19 04:22 04:32 07:37 Glucose 110 H POC Glucose 104 H 96 11/29/19 12:00 Glucose POC Glucose 94 OUTPATIENT ANTIDIABETIC REGIMEN: * Metformin 500mg PO Q AM * A1c = 7.2% 10/09/19 ASSESSMENT: 11/29 * BSGs well controlled over last 24 hrs * New events in last 24 hrs: Norepi weaned off, renal fxn improving, IV steroids d/c'd and then reordered to begin at higher dose this evening, Doxy PO added * Patient remains NPO at this time. Fasting BSG down to 96 this AM and no steroids scheduled for administration this AM - hold Lantus, but resume this evening per scale due to resuming IV solu-medrol * Will continue Q 4 hr BSG checks with coverage due to new steroid order * Novolog CF and CR reasonable to continue 11/28 * Type 2 diabetic, reasonably well controlled with metformin monotherapy, admitted to ICU secondary to hypercapnic resp failure secondary to PNA + OHS as well as septic shock * Pt remains NPO at this time * Receiving IV ABX, norepi pressor support, and IV solu-medrol * Fasting BSG this AM = 120 with 18 units basal insulin on board * Will continue weight based (using adjusted body weight) SQ basal/bolus dosing at this time. Will utilize dosing scale for Lantus given NPO status but significant stressors PLAN FOR INPATIENT GLYCEMIC CONTROL: * Hold outpatient oral diabetes medications (metformin) * Basal insulin * Lantus SQ BID per scale * 0 units if BSG less than 110 * 6 units if BSG 110-180 * 12 units if BSG above 180 * Bolus insulin * NovoLog per scale Q 4 hrs * Goal Range: Low 110 mg/dL - High 140 mg/dL * Correction Factor: 20 mg/dL/unit * Nutritional / Prandial insulin per carb ratio of 1 unit per 8 grams CHO consumed PLAN FOR DISCHARGE: * to be determined
[2019-11-29] MEDS: NICOTINE 14 MG/24 HR PATCH TD SCH (12:50)
[2019-11-29] MEDS: DOXYCYCLINE HYCLATE 100 MG CAP PO SCH ×2 (12:54→20:54)
[2019-11-29] MEDS ORDERED: methylPREDNISolone 60 MG in SYRINGE 0 ML IV ONE (13:45)
[2019-11-29] MEDS: ALBUT/IPRATROP 3MG/0.5MG NEB 3 ML VIAL NEB SCH ×4 (14:02→22:20)
--- NOTE | 2019-11-29 14:12 | Pulmonology Progress Note ---
Date of Service November 29, 2019 Assessment & Plan (1) Acute hypercapnic respiratory failure: Patient with acute on chronic hypercapnic respiratory failure. Continue BiPAP PRN at rest. He needs aggressive physical therapy and Occupational Therapy. He has atelectasis both bases. He needs incentive spirometry. His hypoxemia is likely related to diastolic heart failure, secondary from hypertension and shunting related to atelectasis. He is on antibiotics for both pneumonia and cellulitis. Aggressive weight loss recommended. His overall prognosis is guarded. (2) CHF (congestive heart failure): Heart failure chronicity: unspecified Heart failure type: unspecified Qualified Code(s): I50.9 - Heart failure, unspecified (3) Cellulitis: Laterality: left Site of cellulitis: extremity Site of cellulitis of extremity: lower extremity Qualified Code(s): L03.116 - Cellulitis of left lower limb (4) Acute kidney failure: (5) Septic shock: Subjective Patient about the same as yesterday. He is a bit delirious today. He is telling me that he is waiting for his election. He seems to be hallucinating a bit about things. He tells me that he generally feels bad. He has not been coughing. He denies any chest pain. He has been laying in bed mostly. He is about 88% on 10 L of oxygen. Physical Exam Constitutional: Morbidly obese. No apparent distress. Currently has a BiPAP mask in place. Eyes: PERRL, conjunctivae normal, anicteric sclerae Respiratory: Diminished at the bases. Otherwise clear to auscultation. Cardiovascular: 4+ pitting edema bilateral lower extremities. No murmurs rubs or gallops. Gastrointestinal (Abdomen): normal bowel sounds, soft, nontender, no hepatosplenomegaly Neurologic: PERRL, EOMI, accommodation nl, no face palsy, no dysarthria Results & Data Vital Signs (Past 12 Hours) Vital Signs Temp Pulse Pulse Resp BP BP Pulse Ox 11/29/19 12:14 99.0 F 91 H 20 163/79 H 88 L 11/29/19 06:00 92 H 31 H 89 L 11/29/19 05:00 88 L 11/29/19 04:48 94 H 152/82 H 89 L 11/29/19 04:36 97 H 19 131/80 87 L 11/29/19 04:00 98.8 F 99 H 19 83 L 11/29/19 03:48 94 H 23 148/85 H 88 L 11/29/19 03:18 91 H 21 117/72 11/29/19 03:00 99 H 23 98 11/29/19 02:48 100 H 21 166/71 H 96 11/29/19 02:24 97 H 25 H 148/91 H 94 PG Care Time/CCT Total # of Minutes Spent Total Time Spent with Patient: Total time spent is greater than 50% in coordination of care (as documented) at patient's floor/unit and/or counseling patient:
--- NOTE | 2019-11-29 14:48 | XRay Report ---
XR chest 1V portable CLINICAL HISTORY: follow up atelectasis COMPARISON STUDY: Chest CT November 27, 2019 chest radiograph November 28, 2019. FINDINGS: No pneumothorax. Cardiomegaly is unchanged. There is no evidence for pulmonary edema. Right lower lung aeration has improved. There is persistent right basilar opacity. There is minimal left b asilar opacity. IMPRESSION: 1. Right basilar opacity, improved aeration since exam of November 28, 2019. 2. Mild left basilar opacity. 3. Cardiomegaly without evidence for pulmonary edema. ACT 112: Negative or not required by law. Electronically signed by: Darryl Coleman M.D. 11/29/2019 2:47 PM
--- NOTE | 2019-11-29 17:42 | Billing Data ---
Date of Service November 29, 2019 Coding Level of Care Code 24024 Subseq Hosp Care Lvl 3
[2019-11-29 18:44] LABS: Allen Test Pos (Pos); Base Excess ABG 5.3 mEq/L (-9-1.8); HCO3 ABG 34 mmol/L (19-24); Oxygen Saturation ABG 96.5 % (90-95); PCO2 ABG 67 mmHg (35-46); PO2 ABG 92 mm/Hg (80-95); pH ABG 7.32 (7.35-7.45)
--- NOTE | 2019-11-29 20:18 | Billing Data ---
Date of Service November 29, 2019 Coding Level of Care Code 07496 Prolonged Care (int'l)
[2019-11-29] MEDS: LACTATED RINGER'S 1,000 ML IV SCH (20:40)
[2019-11-29] MEDS: methylPREDNISolone 60 MG in SYRINGE 0 ML IV SCH (20:41)
[2019-11-29] MEDS: INSULIN GLARGINE SOLOSTAR 100 UNITS/ML 3 ML PEN SC SCH (20:44)
[2019-11-30] MEDS: ALBUT/IPRATROP 3MG/0.5MG NEB 3 ML VIAL NEB SCH ×6 (02:11→23:38)
[2019-11-30] MEDS: INSULIN ASPART 100 UNITS/ML 3 ML PEN SC SCH ×5 (04:09→20:55)
[2019-11-30] MEDS: HEPARIN SODIUM (PORCINE) 7,500 UNITS in SYRINGE 0 ML SQ SCH ×3 (05:41→20:54)
[2019-11-30] MEDS: LACTATED RINGER'S 1,000 ML IV SCH ×2 (05:41→15:45)
[2019-11-30 07:52] LABS: Hemoglobin 14.6 g/dL (14.0-18.0); Immature Granulocytes # (auto) 0.01 K/uL (0.00-0.02); Immature Granulocytes % (auto) 0.1 %; Lymphocytes # (auto) 0.54 K/uL (1.2-3.4); Lymphocytes % (auto) 6.9 %; Mean Corpuscular Hgb Conc 31.1 g/dL (32-36); Mean Corpuscular Volume 93.4 fL (80-100); Mean Platelet Volume 9.9 fL (7.4-10.4); Monocytes # (auto) 0.08 K/uL (0.11-0.59); Neutrophils # (auto) 7.22 K/uL (1.4-6.5); Platelet Count 226 K/uL (130-400); RDW Coefficient of Variation 15.5 % (11.5-14.5); RDW Standard Deviation 53.2 fL (36.4-46.3); Red Blood Count 5.03 M/uL (4.7-6.1); White Blood Count 7.85 K/uL (4.8-10.8)
[2019-11-30 08:07] LABS: Allen Test Pos (Pos); Base Excess ABG 7.8 mEq/L (-9-1.8); HCO3 ABG 36 mmol/L (19-24); Oxygen Saturation ABG 95.2 % (90-95); PCO2 ABG 63 mmHg (35-46); PO2 ABG 78 mm/Hg (80-95); pH ABG 7.37 (7.35-7.45)
[2019-11-30 08:13] LABS: BUN Creatinine Ratio 38.4 (10-20); Calcium 9.7 mg/dl (8.5-10.1); Creatinine Clr Calc Pharmacy 80.8 ml/min; Est GFR (African American) 65.6; Est GFR (Non-African American) 56.6; Potassium 4.7 mmol/L (3.5-5.1)
[2019-11-30] MEDS: FAMOTIDINE 40 MG TABLET PO SCH (08:32)
[2019-11-30] MEDS: ATORVASTATIN 40 MG TAB PO SCH (08:32)
[2019-11-30] MEDS: NICOTINE 14 MG/24 HR PATCH TD SCH (08:32)
[2019-11-30] MEDS: ASPIRIN 81 MG ECTAB PO SCH (08:32)
[2019-11-30] MEDS: methylPREDNISolone 60 MG in SYRINGE 0 ML IV SCH ×2 (08:32→20:51)
[2019-11-30] MEDS: INSULIN GLARGINE SOLOSTAR 100 UNITS/ML 3 ML PEN SC SCH ×2 (08:34→20:54)
[2019-11-30] MEDS: DOXYCYCLINE HYCLATE 100 MG CAP PO SCH ×2 (09:15→20:09)
--- NOTE | 2019-11-30 09:42 | Hospitalist Progress Note ---
Date of Service November 30, 2019 Assessment & Plan (1) Acute hypercapnic respiratory failure: 64 yo M admitted for JEFRY and acute hypoxic hypercapnic respiratory failure in the setting of a multifocal pneumonia. Acute hypercapnic respiratory failure: - Pt's pH improving with overnight BiPAP and pneumonia tx; pH 7.37, pCO2 63. - Pt currently more alert, still with some confusion however answers most questions appropriately. No shortness of breath on HFNC @flow 35, FiO2 100%, f eels overall weak. Afebrile, no leukocytosis. Continue titrating oxygen as able, BiPAP at minimum at night. Expect pt's level of alertness to directly correlate with blowing off of CO2 overnight. - Also expect an element of obesity hypoventilation syndrome also contributing to acute hypercapnic respiratory failure. Patient denies any history of obstructive sleep apnea however has not had a sleep study. 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 - Serial ABGs; PPI and Abx (ceftazidime, Doxy) for pneumonitis/pneumonia per Pulmonology (started 11/26/2019). - Pt a chronic smoker and has been seen using chewing tobacco in the hospital multiple times even during BiPAP use. Recommend he discontinue smoking and chewing tobacco moving forward. - Continue IV methylprednisalone 60mg q12h. - one to one as needed at night; pt has been taking off mask contributing to his delirium and hypoxia. Hypotension: - BP elevated today, however pt's JEFRY in the process of resolving. - Consider restarted KANDICE as able. - LR @ 100mL/hr at this time. - Continue to monitor. Acute kidney failure: - Pt's baseline creatinine 1.2; today 2.04. - Strict Is/Os with luevano, avoid renal toxins. - Nephrology following. Consider addition of KANDICE as able; fluids in the setting of ATN. Renal ultrasound negative. Monitor output. Venous stasis ulcer of left leg: - Pt without leukocytosis. Will continue to follow. - Left lower leg recently debrided by wound care and found to be growing stenotrophomonas. - Same site grew Enterococcus faecalis 10/16/2019. - Pt currently on ceftazidime and doxycycline which will cover wound bacteria. - Wound care consult placed. - Encourage ambulation when able, compression wraps. Tobacco abuse: - Pt with significant smoking and chewing history, chewing as recently as during this admission while on BiPAP. - Have given nicotine patches qday. CODE STATUS: FULL CODE until discussion later today with family. FEN/GI: NPO. LR @100mL/hr. DVT ppx: Lovenox 40mg daily. Dispo: PCU Telemetry (2) SOB (shortness of breath): (3) CHF (congestive heart failure): (4) Venous stasis ulcer: (5) Acute kidney failure: (6) Hypotension: (7) GERD without esophagitis: (8) Diabetes: (9) High cholesterol: (10) Hypertension: Supervising Physician Co-Signing Physician Notes I personally examined the patient and verified all park points of history and exam, discussed case, and agree with decision making with Dr Vigil. feeling better breathing better more alert. Vitals noted, in general he is awake and alert but appearing fatigued. HEENT normocephalic atraumatic mucous membranes moist. Lungs diminished air entry base right to up to about the mid lung otherwise clear with better air entry than yesterday, probably the best to date. Left lung clear no rales/rhonchi/wheezes similar air entry to the right upper lung mata. Neuro shows cranial nerves II through XII be grossly intact gross motor and sensory intact without any focal deficits. Skin shows no rashes no pallor or icterus. Acute on presumably chronic mixed hypercapnic and hypoxic respiratory failureinitially thought to be related to acute on chronic diastolic CHF, but after further review he actually has a pneumonia exacerbating a probable underlying chronic hypoventilation syndrome and/or COPD. continue current care, bipap when sleeping. continue abx and pulmonary toilet. coached on incentive spirometry extensively. Otherwise as above Subjective Pt with improvement of pH and CO2 overnight. More alert today; able to answer most of my questions without difficulty. Denies shortness of breath. Some weakness and "feeling hot". Review of Systems Constitutional: no fever, no chills and no malaise Respiratory: no cough and no dyspnea Cardiovascular: no chest pain, no palpitations and no edema Gastrointestinal: no abdominal pain, no constipation and no diarrhea/loose stools Physical Exam Constitutional: WD/WN, vitals as above Respiratory: normal respiratory effort; no cough Auscultation: no crackles and no wheezes some decreased breath sounds at lung bases Cardiovascular: Rate/Rhythm: regular rate and regular rhythm Heart Sounds: no murmur Extremities: + edema (3-4+ in b/l LE) Gastrointestinal (Abdomen): normal bowel sounds, soft, nontender, no hepatosplenomegaly Skin: venou stasis changes in b/l LE Psychiatric: A+Ox3, euthymic affect Results & Data Vital Signs (Past 12 Hours) Vital Signs Temp Pulse Pulse Resp BP Pulse Ox 11/30/19 08:29 97 H 18 98 11/30/19 07:30 83 14 93 11/30/19 07:29 83 14 93 11/30/19 07:07 36.9 C 80 16 176/69 H 97 11/30/19 06:16 75 18 95 11/30/19 04:00 36.5 C 86 15 167/77 H 95 11/30/19 02:12 60 20 95 11/30/19 02:11 87 24 95 11/29/19 23:48 82 11/29/19 23:29 36.5 C 77 18 165/77 H 94 11/29/19 22:22 60 12 90 11/29/19 22:20 60 12 90 Laboratory Results Laboratory Results - last 24 hr 11/29/19 11/29/19 11/29/19 16:32 18:33 20:42 WBC RBC Hgb Hct MCV MCH MCHC RDW Std Deviation RDW Coeff of Bonifacio Plt Count MPV Immature Gran % (Auto) Neut % (Auto) Lymph % (Auto) Sharkey % (Auto) Eos % (Auto) Baso % (Auto) Immature Gran # (Auto) Neut # (Auto) Lymph # (Auto) Sharkey # (Auto) Eos # (Auto) Baso # (Auto) ABG pH 7.32 L ABG pCO2 67 H ABG pO2 92 ABG HCO3 34 H ABG O2 Saturation 96.5 H ABG Base Excess 5.3 H Amanuel Test Pos Barometric Pressure 739.5 Oxygen Given FLOW RATE 15 Sodium Potassium Chloride Carbon Dioxide Anion Gap BUN Creatinine Est Cr Clr Drug Dosing Est GFR ( Amer) Est GFR (Non-Af Amer) BUN/Creatinine Ratio Glucose POC Glucose 113 H 120 H Calcium 11/30/19 11/30/19 11/30/19 04:02 06:35 07:40 WBC 7.85 RBC 5.03 Hgb 14.6 Hct 47.0 MCV 93.4 MCH 29.0 MCHC 31.1 L RDW Std Deviation 53.2 H RDW Coeff of Bonifacio 15.5 H Plt Count 226 MPV 9.9 Immature Gran % (Auto) 0.1 Neut % (Auto) 92.0 Lymph % (Auto) 6.9 Sharkey % (Auto) 1.0 Eos % (Auto) 0.0 Baso % (Auto) 0.0 Immature Gran # (Auto) 0.01 Neut # (Auto) 7.22 H Lymph # (Auto) 0.54 L Sharkey # (Auto) 0.08 L Eos # (Auto) 0.00 Baso # (Auto) 0.00 ABG pH ABG pCO2 ABG pO2 ABG HCO3 ABG O2 Saturation ABG Base Excess Amanuel Test Barometric Pressure Oxygen Given Sodium Cancelled Potassium Cancelled Chloride Cancelled Carbon Dioxide Cancelled Anion Gap Cancelled BUN Cancelled Creatinine Cancelled Est Cr Clr Drug Dosing Cancelled Est GFR ( Amer) Cancelled Est GFR (Non-Af Amer) Cancelled BUN/Creatinine Ratio Cancelled Glucose Cancelled POC Glucose 153 H Calcium Cancelled 11/30/19 11/30/19 11/30/19 07:40 07:42 11:19 WBC RBC Hgb Hct MCV MCH MCHC RDW Std Deviation RDW Coeff of Bonifacio Plt Count MPV Immature Gran % (Auto) Neut % (Auto) Lymph % (Auto) Sharkey % (Auto) Eos % (Auto) Baso % (Auto) Immature Gran # (Auto) Neut # (Auto) Lymph # (Auto) Sharkey # (Auto) Eos # (Auto) Baso # (Auto) ABG pH 7.37 ABG pCO2 63 H ABG pO2 78 L ABG HCO3 36 H ABG O2 Saturation 95.2 H ABG Base Excess 7.8 H Amanuel Test Pos Barometric Pressure 747.8 Oxygen Given 60% FiO2 Sodium 149 H Potassium 4.7 D Chloride 111 H Carbon Dioxide 34 H Anion Gap 4.0 BUN 51 H Creatinine 1.32 D Est Cr Clr Drug Dosing 80.8 Est GFR ( Amer) 65.6 Est GFR (Non-Af Amer) 56.6 BUN/Creatinine Ratio 38.4 H Glucose 177 H POC Glucose 174 H Calcium 9.7 11/30/19 13:41 WBC RBC Hgb Hct MCV MCH MCHC RDW Std Deviation RDW Coeff of Bonifacio Plt Count MPV Immature Gran % (Auto) Neut % (Auto) Lymph % (Auto) Sharkey % (Auto) Eos % (Auto) Baso % (Auto) Immature Gran # (Auto) Neut # (Auto) Lymph # (Auto) Sharkey # (Auto) Eos # (Auto) Baso # (Auto) ABG pH ABG pCO2 ABG pO2 ABG HCO3 ABG O2 Saturation ABG Base Excess Amanuel Test Barometric Pressure Oxygen Given Sodium 144 Potassium 4.3 Chloride 106 Carbon Dioxide 34 H Anion Gap 4.0 BUN 47 H Creatinine 1.34 Est Cr Clr Drug Dosing 79.5 Est GFR ( Amer) 64.4 Est GFR (Non-Af Amer) 55.6 BUN/Creatinine Ratio 35.1 H Glucose 264 H POC Glucose Calcium 9.4 Medications Administered Current Medications Albuterol (Duoneb) 3 ml NEB Q6H PRN PRN Reason: Wheezing Stop: 12/28/19 20:29 Albuterol (Duoneb) 3 ml NEB Q4R [facility] Stop: 12/29/19 11:59 Last Admin: 11/30/19 15:09 Dose: 3 ml Documented by: Aspirin (Ecotrin Ectab) [address] [facility] Stop: 12/25/19 08:59 Last Admin: 11/30/19 08:32 Dose: 81 mg Documented by: Atorvastatin Calcium (Lipitor) [facility] Stop: 12/25/19 08:59 Last Admin: 11/30/19 08:32 Dose: 40 mg Documented by: Dextrose (Dextrose 50%) 25 - 50 ml IV UD PRN; Protocol PRN Reason: Hypoglycemia Protocol Stop: 12/24/19 19:31 Docusate Sodium (Colace) 100 mg PO BID PRN PRN Reason: Constipation Stop: 12/24/19 19:31 Doxycycline Hyclate (Vibramycin) 100 mg PO BID [facility]; Protocol Stop: 12/06/19 11:59 Last Admin: 11/30/19 09:15 Dose: 100 mg Documented by: Famotidine (Pepcid) 40 mg PO QAM [facility] Stop: 12/25/19 08:59 Last Admin: 11/30/19 08:32 Dose: 40 mg Documented by: Fenofibrate (Tricor) [address] [facility] Stop: 12/31/19 08:59 Glucagon (Glucagen) 1 mg SQ UD PRN; Protocol PRN Reason: Hypoglycemia Protocol Stop: 12/24/19 19:31 Glucose (Dex4 Glucose) 4 - 8 tabs PO UD PRN; Protocol PRN Reason: Hypoglycemia Protocol Stop: 12/24/19 19:31 Glucose (Glucose 40%) 15 - 30 gm PO UD PRN; Protocol PRN Reason: Hypoglycemia Protocol Stop: 12/24/19 19:31 Heparin Sodium (Porcine) 7,500 (units/ Syringe) 0.75 mls @ 0 mls/sec SQ Q8 [facility] Stop: 12/28/19 13:59 Last Admin: 11/30/19 14:58 Dose: 1 mls/sec Documented by: Methylprednisolone 60 mg/ (Syringe) 0.96 mls @ 1.5 mls/min IV Q12 [facility] Stop: 12/29/19 20:59 Last Admin: 11/30/19 08:32 Dose: 1.5 mls/min Documented by: Lactated Ringer's (Lr) 1,000 mls @ 100 mls/hr IV .Q10H [facility] Stop: 12/29/19 19:29 Last Admin: 11/30/19 05:41 Dose: 100 mls/hr Documented by: Ceftazidime 2,000 mg/ Dextrose 60 mls @ 120 mls/hr IV Q8H [facility]; Protocol Stop: 12/07/19 23:59 Insulin Aspart (Novolog Flexpen) 0 units SC ACHS [facility] Stop: 12/30/19 07:29 Last Admin: 11/30/19 12:30 Dose: 7 units Documented by: Insulin Aspart (Novolog Flexpen) 0 units SC TODAY@0200 [facility] Stop: 12/31/19 01:59 Insulin Glargine (Lantus Solostar Pen) 0 units SC BID [facility]; Protocol Stop: 12/30/19 08:59 Last Admin: 11/30/19 08:34 Dose: 9 units Documented by: Lisinopril (Zestril) 40 mg PO DAILY [facility] Stop: 12/25/19 08:59 Last Admin: 11/26/19 07:47 Dose: 40 mg Documented by: Miscellaneous (Carbohydrates For Hypoglycemia) 15 - 30 gm PO UD PRN PRN Reason: Hypoglycemia Protocol Stop: 12/24/19 19:31 Miscellaneous (Remove Nicoderm Patch) 1 ea N/A DAILY@0859 [facility] Stop: 12/30/19 08:58 Last Admin: 11/30/19 08:06 Dose: 1 ea Documented by: Miscellaneous Information (Consult Glycemic Management Pharmacy) 1 ea N/A UD PRN PRN Reason: Consult Stop: 12/27/19 15:47 Nicotine (Nicoderm Cq) 14 mg TD QAM [facility] Stop: 12/29/19 11:59 Last Admin: 11/30/19 08:32 Dose: 14 mg Documented by: Ondansetron HCl (Zofran) 4 mg IV Q6H PRN PRN Reason: Nausea Stop: 12/24/19 19:31 Resident Activity Tracking Resident Involvement: Resident Care Provided Care Provided: Adult Hospital Medicine (1) Diabetes Diabetes mellitus complication status: without complication Diabetes mellitus exterminator helper insulin use: without intermediate use Diabetes mellitus type: type 2 Qualified Code(s): E11.9 - Type 2 diabetes mellitus without complications (2) CHF (congestive heart failure) Heart failure chronicity: unspecified Heart failure type: unspecified Qualified Code(s): I50.9 - Heart failure, unspecified (3) Venous stasis ulcer Laterality: left Non-pressure ulcer stage: limited to breakdown of skin Varicose vein presence: unspecified whether present Venous stasis ulcer site: calf Qualified Code(s): I83.022 - Varicose veins of left lower extremity with ulcer of calf; L97.221 - Non-pressure chronic ulcer of left calf limited to breakdown of skin (4) Hypertension Hypertension type: essential hypertension Qualified Code(s): I10 - Essential (primary) hypertension
--- NOTE | 2019-11-30 09:50 | Nephrology Progress Note ---
Date of Service November 30, 2019 Assessment & Plan (1) Acute kidney failure: 64 Y O M with HTN, DM, diastolic cHF, Morbid obesity, admitted with sepsis with multifocal Pneumonia. Developed Oliguric JEFRY with hypotension, NSAID, ACEI. H/O diastolic CHF and chronic diuretics. JEFRY hemodynamic with hypotension, diuretic use. UA and renal imaging unremarkable. but intrinsic renal disease or postrenal obstruction seems unlikely although pt has h/o Nephrolithiasis. Renal function continues to worsen, however, electrolyte acceptable and urine output improved. Blood pressure slightly improved with and MAP above 65 on pressor. Renal function improved, JEFRY resolved, has been having decent urine output, net negative more than 2 L. --patient seen to be in post ATN diuresis phase, having great urine output. Would monitor volume status, if continues to be significantly negative patient risk for getting volume depleted while recovering from JEFRY.. --encourage increased po intake, if continues to be net negative, may need D5W --monitor renal function with daily renal panel, expect renal function to continue to improve. --suggest to resume lisinopril as BP running high and JEFRY resolved. Will sign off. (2) Hypotension: (3) Acute hypercapnic respiratory failure: (4) Venous stasis ulcer: (5) Oliguria: Subjective Jonny was seen and examined this am. Overall doing better, JEFRY resolved, diuresing with >2 L negative. BP high. Review of Systems Review of Systems: All systems reviewed & are unremarkable except as noted in HPI & below Physical Exam Constitutional: + ill appearing and + morbidly obese; no acute distress Respiratory: normal respiratory effort, lungs clear to auscultation normal respiratory effort; no respiratory distress and no cough Auscultation: + diminished lung sounds Cardiovascular: Rate/Rhythm: regular rate and regular rhythm Heart Sounds: normal S1 and normal S2 Extremities: + edema Skin: + ulcer Neurologic: moves all extremities and awake; no focal motor deficits and not confused Psychiatric: A+Ox3, euthymic affect Results & Data Vital Signs (Past 12 Hours) Vital Signs Temp Pulse Pulse Resp BP Pulse Ox 11/30/19 08:29 97 H 18 98 11/30/19 07:30 83 14 93 11/30/19 07:29 83 14 93 11/30/19 07:07 36.9 C 80 16 176/69 H 97 11/30/19 06:16 75 18 95 11/30/19 04:00 36.5 C 86 15 167/77 H 95 11/30/19 02:12 60 20 95 11/30/19 02:11 87 24 95 11/29/19 23:48 82 11/29/19 23:29 36.5 C 77 18 165/77 H 94 11/29/19 22:22 60 12 90 11/29/19 22:20 60 12 90 PG Care Time/CCT Total # of Minutes Spent Total Time Spent with Patient: Total time spent is greater than 50% in coordination of care (as documented) at patient's floor/unit and/or counseling patient: (1) Venous stasis ulcer Venous stasis ulcer site: calf Varicose vein presence: unspecified whether present Laterality: left Non-pressure ulcer stage: limited to breakdown of skin Qualified Code(s): I83.022 - Varicose veins of left lower extremity with ulcer of calf; L97.221 - Non-pressure chronic ulcer of left calf limited to breakdown of skin
--- NOTE | 2019-11-30 12:59 | Pharmacy Report ---
Pharmacy Glycemic Short Note 2 - Date of Service November 30, 2019 - Glycemic Short BSG Results (Last 24 hours): 11/29/19 11/29/19 11/30/19 16:32 20:42 04:02 Glucose POC Glucose 113 H 120 H 153 H 11/30/19 11/30/19 11/30/19 06:35 07:42 11:19 Glucose Cancelled 177 H POC Glucose 174 H OUTPATIENT ANTIDIABETIC REGIMEN: * Metformin 500mg PO Q AM * A1c = 7.2% 10/09/19 ASSESSMENT: 11/30 * Blood sugars well controlled over past 24 hours, received 9 total units of insulin yesterday, 6 units basal, 3 units bolus. * Patient continues on Solu-medrol 60mg IV Q12H, IV ceftazidime, and doxycycline PO * Diet advanced to type 2 diabetic diet * Renal function much improved, SCr 1.32mg/dl today * Increase basal as diet increasing and fasting blood sugar above goal at 177mg/dl 11/29 * BSGs well controlled over last 24 hrs * New events in last 24 hrs: Norepi weaned off, renal fxn improving, IV steroids d/c'd and then reordered to begin at higher dose this evening, Doxy PO added * Patient remains NPO at this time. Fasting BSG down to 96 this AM and no steroids scheduled for administration this AM - hold Lantus, but resume this evening per scale due to resuming IV solu-medrol * Will continue Q 4 hr BSG checks with coverage due to new steroid order * Novolog CF and CR reasonable to continue 11/28 * Type 2 diabetic, reasonably well controlled with metformin monotherapy, admitted to ICU secondary to hypercapnic resp failure secondary to PNA + OHS as well as septic shock * Pt remains NPO at this time * Receiving IV ABX, norepi pressor support, and IV solu-medrol * Fasting BSG this AM = 120 with 18 units basal insulin on board * Will continue weight based (using adjusted body weight) SQ basal/bolus dosing at this time. Will utilize dosing scale for Lantus given NPO status but significant stressors PLAN FOR INPATIENT GLYCEMIC CONTROL: * Hold outpatient oral diabetes medications (metformin) * Basal insulin - INCREASE * Lantus SQ BID per scale * 0 units if BSG less than 110 * 9 units if BSG 110-180 * 18 units if BSG above 180 * Bolus insulin * NovoLog per scale ACHS * Goal Range: Low 110 mg/dL - High 140 mg/dL * Correction Factor: 20 mg/dL/unit * Nutritional / Prandial insulin per carb ratio of 1 unit per 8 grams CHO consumed PLAN FOR DISCHARGE: * to be determined
[2019-11-30 14:12] LABS: BUN Creatinine Ratio 35.1 (10-20); Calcium 9.4 mg/dl (8.5-10.1); Creatinine Clr Calc Pharmacy 79.5 ml/min; Est GFR (African American) 64.4; Est GFR (Non-African American) 55.6; Potassium 4.3 mmol/L (3.5-5.1)
[2019-11-30] MEDS: FENOFIBRATE - ORDER AWAITING ACTION SCH (19:11)
--- NOTE | 2019-11-30 20:36 | Billing Data ---
Date of Service November 30, 2019 Coding Level of Care Code 03974 Subseq Hosp Care Lvl 3
[2019-12-01] MEDS: LACTATED RINGER'S 1,000 ML IV SCH (01:30)
[2019-12-01] MEDS ORDERED: INSULIN ASPART 100 UNITS/ML 3 ML PEN SC SCH (02:00)
[2019-12-01] MEDS: ALBUT/IPRATROP 3MG/0.5MG NEB 3 ML VIAL NEB SCH ×6 (03:14→23:19)
[2019-12-01] MEDS: HEPARIN SODIUM (PORCINE) 7,500 UNITS in SYRINGE 0 ML SQ SCH ×3 (05:53→22:12)
[2019-12-01] MEDS: INSULIN ASPART 100 UNITS/ML 3 ML PEN SC SCH ×4 (08:03→21:11)
[2019-12-01] MEDS: INSULIN GLARGINE SOLOSTAR 100 UNITS/ML 3 ML PEN SC SCH ×2 (08:05→21:11)
[2019-12-01] MEDS: FENOFIBRATE NANOCRYSTALLIZED 145 MG TABLET PO SCH (08:07)
[2019-12-01] MEDS: DOXYCYCLINE HYCLATE 100 MG CAP PO SCH ×2 (08:07→20:12)
[2019-12-01] MEDS: ASPIRIN 81 MG ECTAB PO SCH (08:07)
[2019-12-01] MEDS: NICOTINE 14 MG/24 HR PATCH TD SCH (08:08)
[2019-12-01] MEDS: methylPREDNISolone 60 MG in SYRINGE 0 ML IV SCH ×2 (08:08→20:12)
[2019-12-01] MEDS: FAMOTIDINE 40 MG TABLET PO SCH (08:08)
[2019-12-01] MEDS: ATORVASTATIN 40 MG TAB PO SCH (08:08)
[2019-12-01 08:13] LABS: Base Excess ABG 9.2 mEq/L (-9-1.8); HCO3 ABG 36 mmol/L (19-24); Oxygen Saturation ABG 95.9 % (90-95); PCO2 ABG 56 mmHg (35-46); PO2 ABG 80 mm/Hg (80-95); pH ABG 7.42 (7.35-7.45)
[2019-12-01 08:25] LABS: Allen Test Pos (Pos)
[2019-12-01 08:57] LABS: BUN Creatinine Ratio 33.5 (10-20); Calcium 9.5 mg/dl (8.5-10.1); Creatinine Clr Calc Pharmacy 91.9 ml/min; Est GFR (African American) 75.1; Est GFR (Non-African American) 64.8; Potassium 4.7 mmol/L (3.5-5.1)
--- NOTE | 2019-12-01 09:01 | Hospitalist Progress Note ---
Date of Service December 01, 2019 Assessment & Plan (1) Acute hypercapnic respiratory failure: 64 yo M admitted for JEFRY and acute hypoxic hypercapnic respiratory failure in the setting of a multifocal pneumonia. Acute hypercapnic respiratory failure: - Pt's pH improving with overnight BiPAP and pneumonia tx; pH 7.42, pCO2 56. - Pt completely alert and oriented; reports that he falls asleep often at work and has gotten in trouble at work before as a result of this. Feels tired often during the day. Is claustrophobic and against mask CPAP at home however would be amenable to nasal CPAP. - Also expect an element of obesity hypoventilation syndrome also contributing to acute hypercapnic respiratory failure. - Serial ABGs; PPI and Abx (ceftazidime, Doxy) for pneumonitis/pneumonia per Pulmonology (started 11/26/2019). - Pt a chronic smoker and has been seen using chewing tobacco in the hospital multiple times even during BiPAP use; currently without tobacco products several days and with daily nicotine patches. Recommend he discontinue smoking and chewing tobacco moving forward. Pt reports "it ain't gonna happen", understands that his tobacco use will negatively impact his health and already has. - Continue IV methylprednisalone 60mg q12h. - Given continued improvement have ordered PT/OT evaluations. - Had PFT done in 2011, will try to obtain records however would be reasonable to repeat regardless given more time using tobacco and worsening of lung disease. Hypotension: - BP mildly elevated today, pt's JEFRY resolved. - Consider restarting KANDICE as able. - d/c fluids given good PO intake and resolved JEFRY. - Continue to monitor. Acute kidney failure: - Pt's baseline creatinine 1.2; today 1.18. - Strict Is/Os with luevano, avoid renal toxins. - Nephrology following. Consider addition of KANDICE as able. Renal ultrasound negative. Monitor output. Venous stasis ulcer of left leg: - Pt without leukocytosis. Will continue to follow. - Left lower leg recently debrided by wound care and found to be growing stenotrophomonas. - Same site grew Enterococcus faecalis 10/16/2019. - Pt currently on ceftazidime and doxycycline which will cover wound bacteria. - Wound care consult placed. - Encourage ambulation when able, compression wraps. Tobacco abuse: - Pt with significant smoking and chewing history, chewing as recently as during this admission while on BiPAP. - Have given nicotine patches qday. CODE STATUS: FULL CODE. FEN/GI: DM2 Low Sodium diet. DVT ppx: Lovenox 40mg daily. Dispo: PCU Telemetry (2) SOB (shortness of breath): (3) CHF (congestive heart failure): (4) Venous stasis ulcer: (5) Acute kidney failure: (6) Hypotension: (7) GERD without esophagitis: (8) Diabetes: (9) High cholesterol: (10) Hypertension: Supervising Physician Co-Signing Physician Notes I personally examined the patient and verified all park points of history and exam, discussed case, and agree with decision making with Dr Vigil. Biggest complaint is dry nose. Still seems to have some shortness of breath, but getting better. No other new complaints. Updated patient to the best of my ability, answered all questions to the best my ability. Vitals noted, in general he is awake and alert but appearing fatigued. HEENT normocephalic atraumatic mucous membranes moist. Lungs clear entirely on the left without rales rhonchi or wheezes; lungs on the right show clear without rales rhonchi or wheezes upper lobe, right lower lung field for the first time shows a degree of faint rales, still generally diminished air entry in this region though. Neuro shows cranial nerves II through XII be grossly intact gross motor and sensory intact without any focal deficits. Skin shows no rashes no pallor or icterus. Acute on presumably chronic mixed hypercapnic and hypoxic respiratory failureinitially thought to be related to acute on chronic diastolic CHF, but after further review he actually has a pneumonia exacerbating a probable underlying chronic hypoventilation syndrome and/or COPD. Finish course of antibiotics, continue nasal cannula oxygen, continue supportive care, pulmonary toilet, incentive spirometry. Is showing very nice improvement now. Otherwise as above Subjective Pt without acute events overnight. Wore BiPAP briefly before self-d/c'ing due to discomfort. Alert and oriented today. Know where he is, who he is, what room of the hospital he is in. No shortness of breath on high flow this morning. Complaints of runny stools since this AM. Had liquid BM at 6AM, then another around 830AM. No blood, stool is not predominant water. No abdominal pain. Has been on Abx for several days. Talked further today about his code status; he stated that "if it was a last resort and it was thought to be a potentially curative measure" he would want intubated. He however states "I do not want to be stuck to a vent for the rest of my life". Is amenable to compressions and shocks if necessary. Review of Systems Constitutional: no fever, no chills and no malaise still feeling a little weak Respiratory: no cough, no dyspnea and no wheezing Cardiovascular: no chest pain, no palpitations and no edema Gastrointestinal: + diarrhea/loose stools (as above); no abdominal pain and no constipation Genitourinary: no hematuria Physical Exam Constitutional: WD/WN, vitals as above Respiratory: normal respiratory effort; no cough Auscultation: no crackles and no wheezes some decreased breath sounds at lung bases Cardiovascular: Rate/Rhythm: regular rate and regular rhythm Heart Sounds: no murmur Extremities: + edema (3-4+ in b/l LE) Gastrointestinal (Abdomen): normal bowel sounds, soft, nontender, no hepatosplenomegaly Skin: venou stasis changes in b/l LE Psychiatric: A+Ox3, euthymic affect Results & Data Vital Signs (Past 12 Hours) Vital Signs Temp Pulse Pulse Resp BP BP Pulse Ox 12/01/19 07:12 69 16 94 12/01/19 07:09 69 16 94 12/01/19 06:37 36.8 C 71 20 156/93 H 96 12/01/19 03:55 36.5 C 78 20 170/84 H 96 12/01/19 03:17 84 18 93 12/01/19 03:15 84 18 93 12/01/19 01:34 76 18 94 12/01/19 00:32 71 18 92 11/30/19 23:34 71 15 95 11/30/19 23:23 36.8 C 78 19 161/72 H 98 11/30/19 21:55 82 15 95 Laboratory Results Laboratory Results - last 24 hr 11/29/19 11/30/19 11/30/19 23:31 07:09 11:19 ABG pH ABG pCO2 ABG pO2 ABG HCO3 ABG O2 Saturation ABG Base Excess Amanuel Test Barometric Pressure Oxygen Given Sodium Potassium Chloride Carbon Dioxide Anion Gap BUN Creatinine Est Cr Clr Drug Dosing Est GFR ( Amer) Est GFR (Non-Af Amer) BUN/Creatinine Ratio Glucose POC Glucose 136 H 140 H 174 H Calcium 11/30/19 11/30/19 11/30/19 13:41 16:23 20:40 ABG pH ABG pCO2 ABG pO2 ABG HCO3 ABG O2 Saturation ABG Base Excess Amanuel Test Barometric Pressure Oxygen Given Sodium 144 Potassium 4.3 Chloride 106 Carbon Dioxide 34 H Anion Gap 4.0 BUN 47 H Creatinine 1.34 Est Cr Clr Drug Dosing 79.5 Est GFR ( Amer) 64.4 Est GFR (Non-Af Amer) 55.6 BUN/Creatinine Ratio 35.1 H Glucose 264 H POC Glucose 181 H 142 H Calcium 9.4 12/01/19 12/01/19 12/01/19 01:36 07:54 07:59 ABG pH 7.42 ABG pCO2 56 H ABG pO2 80 ABG HCO3 36 H ABG O2 Saturation 95.9 H ABG Base Excess 9.2 H Amanuel Test Pos Barometric Pressure 741.9 Oxygen Given 40% Sodium 143 Potassium 4.7 Chloride 106 Carbon Dioxide 34 H Anion Gap 3.0 BUN 40 H Creatinine 1.18 Est Cr Clr Drug Dosing 91.9 Est GFR ( Amer) 75.1 Est GFR (Non-Af Amer) 64.8 BUN/Creatinine Ratio 33.5 H Glucose 205 H POC Glucose 174 H Calcium 9.5 Medications Administered Current Medications Albuterol (Duoneb) 3 ml NEB Q6H PRN PRN Reason: Wheezing Stop: 12/28/19 20:29 Albuterol (Duoneb) 3 ml NEB Q4R [facility] Stop: 12/29/19 11:59 Last Admin: 12/01/19 07:09 Dose: 3 ml Documented by: Aspir[facility] ([facility]rin [facility]ab) [facility] Stop: 12/25/19 08:59 Last Admin: 12/01/19 08:07 Dose: 81 mg Documented by: Atorvastatin Calcium (Lipitor) [facility] Stop: 12/25/19 08:59 Last Admin: 12/01/19 08:08 Dose: 40 mg Documented by: Dextrose (Dextrose 50%) 25 - 50 ml IV UD PRN; Protocol PRN Reason: Hypoglycemia Protocol Stop: 12/24/19 19:31 Docusate Sodium (Colace) 100 mg PO BID PRN PRN Reason: Constipation Stop: 12/24/19 19:31 Doxycycline Hyclate (Vibramycin) 100 mg PO BID [facility]; Protocol Stop: 12/06/19 11:59 Last Admin: 12/01/19 08:07 Dose: 100 mg Documented by: Famotidine (Pepcid) 40 mg PO QAM [facility] Stop: 12/25/19 08:59 Last Admin: 12/01/19 08:08 Dose: 40 mg Documented by: Fenofibrate (Tricor) 145 mg PO QAM [facility] Stop: 12/31/19 08:59 Last Admin: 12/01/19 08:07 Dose: 145 mg Documented by: Glucagon (Glucagen) 1 mg SQ UD PRN; Protocol PRN Reason: Hypoglycemia Protocol Stop: 12/24/19 19:31 Glucose (Dex4 Glucose) 4 - 8 tabs PO UD PRN; Protocol PRN Reason: Hypoglycemia Protocol Stop: 12/24/19 19:31 Glucose (Glucose 40%) 15 - 30 gm PO UD PRN; Protocol PRN Reason: Hypoglycemia Protocol Stop: 12/24/19 19:31 Heparin Sodium (Porcine) 7,500 (units/ Syringe) 0.75 mls @ 0 mls/sec SQ Q8 [facility] Stop: 12/28/19 13:59 Last Admin: 12/01/19 05:53 Dose: 1 mls/sec Documented by: Methylprednisolone 60 mg/ (Syringe) 0.96 mls @ 1.5 mls/min IV Q12 [facility] Stop: 12/29/19 20:59 Last Admin: 12/01/19 08:08 Dose: 1.5 mls/min Documented by: Lactated Ringer's (Lr) 1,000 mls @ 100 mls/hr IV .Q10H [facility] Stop: 12/29/19 19:29 Last Admin: 12/01/19 01:30 Dose: 100 mls/hr Documented by: Ceftazidime 2,000 mg/ Dextrose 60 mls @ 120 mls/hr IV Q8H [facility]; Protocol Stop: 12/07/19 23:59 Last Infusion: 12/01/19 02:00 Dose: Infused Documented by: Insulin Aspart (Novolog Flexpen) 0 units SC ACHS [facility] Stop: 12/30/19 07:29 Last Admin: 01/10/20 08:03 Dose: 6 units Documented by: Insulin Glargine (Lantus Solostar Pen) 0 units SC BID [facility]; Protocol Stop: 12/30/19 08:59 Last Admin: 12/01/19 08:05 Dose: 14 units Documented by: Lisinopril (Zestril) 40 mg PO DAILY [facility] Stop: 12/25/19 08:59 Last Admin: 11/26/19 07:47 Dose: 40 mg Documented by: Miscellaneous (Carbohydrates For Hypoglycemia) 15 - 30 gm PO UD PRN PRN Reason: Hypoglycemia Protocol Stop: 12/24/19 19:31 Miscellaneous (Remove Nicoderm Patch) 1 ea N/A DAILY@0859 [facility] Stop: 12/30/19 08:58 Last Admin: 12/01/19 08:08 Dose: 1 ea Documented by: Miscellaneous Information (Consult Glycemic Management Pharmacy) 1 ea N/A UD PRN PRN Reason: Consult Stop: 12/27/19 15:47 Nicotine (Nicoderm Cq) 14 mg TD QAM [facility] Stop: 12/29/19 11:59 Last Admin: 12/01/19 08:08 Dose: 14 mg Documented by: Ondansetron HCl (Zofran) 4 mg IV Q6H PRN PRN Reason: Nausea Stop: 12/24/19 19:31 Resident Activity Tracking Resident Involvement: Resident Care Provided Care Provided: Adult Hospital Medicine (1) Diabetes Diabetes mellitus complication status: without complication Diabetes mellitus fci insulin use: without fci use Diabetes mellitus type: type 2 Qualified Code(s): E11.9 - Type 2 diabetes mellitus without complications (2) CHF (congestive heart failure) Heart failure chronicity: unspecified Heart failure type: unspecified Qualified Code(s): I50.9 - Heart failure, unspecified (3) Venous stasis ulcer Laterality: left Non-pressure ulcer stage: limited to breakdown of skin Varicose vein presence: unspecified whether present Venous stasis ulcer site: calf Qualified Code(s): I83.022 - Varicose veins of left lower extremity with ulcer of calf; L97.221 - Non-pressure chronic ulcer of left calf limited to b reakdown of skin (4) Hypertension Hypertension type: essential hypertension Qualified Code(s): I10 - Essential (primary) hypertension
--- NOTE | 2019-12-01 10:28 | Pharmacy Report ---
Pharmacy Glycemic Short Note 2 - Date of Service December 01, 2019 - Glycemic Short BSG Results (Last 24 hours): 11/29/19 11/30/19 11/30/19 23:31 07:09 11:19 Glucose POC Glucose 136 H 140 H 174 H 11/30/19 11/30/19 11/30/19 13:41 16:23 20:40 Glucose 264 H POC Glucose 181 H 142 H 12/01/19 12/01/19 12/01/19 01:36 07:14 07:54 Glucose 205 H POC Glucose 174 H 158 H OUTPATIENT ANTIDIABETIC REGIMEN: * Metformin 500mg PO Q AM * A1c = 7.2% 10/09/19 ASSESSMENT: 12/01 * Renal function further improved, SCr 1.1mg/dl, continues IV ceftazidime and PO doxycyline. * Patient is currently receiving an average of 40 units of insulin per day * 18 units of basal insulin * 22 units of prandial/correctional insulin * BSGs ranging 142 -174 over the past 24hrs, two other elevated blood sugars via PRP were drawn after meals * Risk factors for insulin resistance are constant over the past 24hrs * Steroid dosing continuing at Solu-medrol 60mg IV Q12H * Anticipating insulin regimen will need increased for the next 24hrs d/t : * AM Fasting BSG = 174mg/dl therefore Basal insulin needs increased * Post-prandial BSGs are elevated/BSGs rise throughout the day therefore Tighten CR 11/30 * Blood sugars well controlled over past 24 hours, received 9 total units of insulin yesterday, 6 units basal, 3 units bolus. * Patient continues on Solu-medrol 60mg IV Q12H, IV ceftazidime, and doxycycline PO * Diet advanced to type 2 diabetic diet * Renal function much improved, SCr 1.32mg/dl today * Increase basal as diet increasing and fasting blood sugar above goal at 177mg/dl 11/29 * BSGs well controlled over last 24 hrs * New events in last 24 hrs: Norepi weaned off, renal fxn improving, IV steroids d/c'd and then reordered to begin at higher dose this evening, Doxy PO added * Patient remains NPO at this time. Fasting BSG down to 96 this AM and no steroids scheduled for administration this AM - hold Lantus, but resume this evening per scale due to resuming IV solu-medrol * Will continue Q 4 hr BSG checks with coverage due to new steroid order * Novolog CF and CR reasonable to continue 11/28 * Type 2 diabetic, reasonably well controlled with metformin monotherapy, admitted to ICU secondary to hypercapnic resp failure secondary to PNA + OHS as well as septic shock * Pt remains NPO at this time * Receiving IV ABX, norepi pressor support, and IV solu-medrol * Fasting BSG this AM = 120 with 18 units basal insulin on board * Will continue weight based (using adjusted body weight) SQ basal/bolus dosing at this time. Will utilize dosing scale for Lantus given NPO status but significant stressors PLAN FOR INPATIENT GLYCEMIC CONTROL: * Hold outpatient oral diabetes medications (metformin) * Basal insulin - INCREASE * Lantus SQ BID per scale * 0 units if BSG less than 110 * 14 units if BSG 110-180 * 18 units if BSG above 180 * Bolus insulin * NovoLog per scale ACHS * Goal Range: Low 110 mg/dL - High 140 mg/dL * Correction Factor: 20 mg/dL/unit * TIGHTEN: Nutritional / Prandial insulin per carb ratio of 1 unit per 7 grams CHO consumed PLAN FOR DISCHARGE: * to be determined
--- NOTE | 2019-12-01 13:35 | Pulmonology Progress Note ---
Date of Service December 01, 2019 Assessment & Plan (1) Acute hypercapnic respiratory failure: Patient with acute on chronic mixed hypoxemic/hypercapnic respiratory failure. Continue BiPAP PRN at rest. Continue to wean the high flow nasal cannula. He needs aggressive physical therapy and Occupational Therapy. He has atelectasis both bases. He needs incentive spirometry. I instructed him to use this hourly. Recommend sitting up in a chair and getting out of bed. His hypoxemia is likely related to diastolic heart failure, secondary from hypertension and shunting related to atelectasis. He is on antibiotics for both pneumonia and cellulitis. Pulmonal sign off. Please call with questions. Thanks for the consult. Aggressive weight loss recommended. His overall prognosis is guarded. (2) CHF (congestive heart failure): Heart failure chronicity: unspecified Heart failure type: unspecified Qualified Code(s): I50.9 - Heart failure, unspecified (3) Cellulitis: Site of cellulitis: extremity Site of cellulitis of extremity: lower extremity Laterality: left Qualified Code(s): L03.116 - Cellulitis of left lower limb (4) Acute kidney failure: (5) Septic shock: Subjective Patient sitting in bed and reading a book. He denies any complaint currently. He had some loose bowel movements overnight. Denies any chest pain, nausea or vomiting. No fevers Physical Exam Eyes: PERRL, conjunctivae normal, anicteric sclerae Respiratory: normal respiratory effort, lungs clear to auscultation Gastrointestinal (Abdomen): normal bowel sounds, soft, nontender, no hepatosplenomegaly Neurologic: PERRL, EOMI, accommodation nl, no face palsy, no dysarthria Results & Data Vital Signs (Past 12 Hours) Vital Signs Temp Pulse Pulse Resp BP BP Pulse Ox 12/01/19 11:05 70 20 95 12/01/19 10:58 97.9 F 70 20 151/84 H 93 12/01/19 08:00 71 12/01/19 07:12 69 16 94 12/01/19 07:09 69 16 94 12/01/19 06:37 98.2 F 71 20 156/93 H 96 12/01/19 03:55 97.7 F 78 20 170/84 H 96 12/01/19 03:17 84 18 93 12/01/19 03:15 84 18 93 12/01/19 01:34 76 18 94 PG Care Time/CCT Total # of Minutes Spent Total Time Spent with Patient: Total time spent is greater than 50% in coordination of care (as documented) at patient's floor/unit and/or counseling patient:
--- NOTE | 2019-12-01 16:28 | Billing Data ---
Date of Service December 01, 2019 Coding Level of Care Code 61282 Subseq Hosp Care Lvl 3
[2019-12-01] MEDS: LACTOBACILLUS ACIDOPHILUS 1 GM PACK PO SCH (17:43)
[2019-12-02] MEDS: ALBUT/IPRATROP 3MG/0.5MG NEB 3 ML VIAL NEB SCH ×6 (02:16→23:29)
[2019-12-02] MEDS: HEPARIN SODIUM (PORCINE) 7,500 UNITS in SYRINGE 0 ML SQ SCH ×3 (06:11→20:55)
[2019-12-02 07:29] LABS: Base Excess ABG 10.2 mEq/L (-9-1.8); HCO3 ABG 37 mmol/L (19-24); Oxygen Saturation ABG 95.1 % (90-95); PCO2 ABG 55 mmHg (35-46); PO2 ABG 74 mm/Hg (80-95); pH ABG 7.44 (7.35-7.45)
[2019-12-02 07:41] LABS: Hematocrit (blood only) 49.5 % (42-52); Hemoglobin 15.8 g/dL (14.0-18.0); Immature Granulocytes # (auto) 0.01 K/uL (0.00-0.02); Immature Granulocytes % (auto) 0.1 %; Lymphocytes % (auto) 6.2 %; Mean Corpuscular Hemoglobin 29.2 pg (25-34); Mean Corpuscular Hgb Conc 31.9 g/dL (32-36); Mean Corpuscular Volume 91.3 fL (80-100); Mean Platelet Volume 10.4 fL (7.4-10.4); Monocytes # (auto) 0.44 K/uL (0.11-0.59); Monocytes % (auto) 3.9 %; Neutrophils # (auto) 10.13 K/uL (1.4-6.5); Neutrophils % (auto) 89.8 %; Platelet Count 210 K/uL (130-400); RDW Coefficient of Variation 15.2 % (11.5-14.5); RDW Standard Deviation 50.4 fL (36.4-46.3); Red Blood Count 5.42 M/uL (4.7-6.1); White Blood Count 11.28 K/uL (4.8-10.8)
[2019-12-02] MEDS: INSULIN GLARGINE SOLOSTAR 100 UNITS/ML 3 ML PEN SC SCH ×2 (07:41→20:52)
[2019-12-02] MEDS: INSULIN ASPART 100 UNITS/ML 3 ML PEN SC SCH ×4 (07:42→20:51)
[2019-12-02] MEDS: FAMOTIDINE 40 MG TABLET PO SCH (07:43)
[2019-12-02] MEDS: ATORVASTATIN 40 MG TAB PO SCH (07:43)
[2019-12-02] MEDS: FENOFIBRATE NANOCRYSTALLIZED 145 MG TABLET PO SCH (07:43)
[2019-12-02] MEDS: LACTOBACILLUS ACIDOPHILUS 1 GM PACK PO SCH ×3 (07:44→16:52)
[2019-12-02] MEDS: NICOTINE 14 MG/24 HR PATCH TD SCH (07:44)
[2019-12-02] MEDS: ASPIRIN 81 MG ECTAB PO SCH (07:44)
[2019-12-02] MEDS: DOXYCYCLINE HYCLATE 100 MG CAP PO SCH ×2 (07:45→20:55)
[2019-12-02 08:06] LABS: BUN Creatinine Ratio 31.1 (10-20); Calcium 9.8 mg/dl (8.5-10.1); Creatinine Clr Calc Pharmacy 82.2 ml/min; Est GFR (African American) 65.6; Est GFR (Non-African American) 56.6
[2019-12-02] MEDS: methylPREDNISolone 60 MG in SYRINGE 0 ML IV SCH ×2 (10:15→20:55)
--- NOTE | 2019-12-02 10:46 | Hospitalist Progress Note ---
Date of Service December 02, 2019 Assessment & Plan (1) Acute hypercapnic respiratory failure: 64 yo M admitted for JEFRY and acute hypoxic hypercapnic respiratory failure in the setting of a multifocal pneumonia. Acute hypercapnic respiratory failure 2/2 PNA: resolving - Pt's pH improving with overnight BiPAP and pneumonia tx; pH 7.44, pCO2 55; post-hypercapnic metabolic alkalosis without anion gap. - Serial ABGs; PPI and Abx (ceftazidime, Doxy) for pneumonitis/pneumonia per Pulmonology (started 11/26/2019). - Continue IV methylprednisalone 60mg q12h. - Given continued improvement have ordered PT/OT evaluations. - Had PFT done in 2011, will try to obtain records however would be reasonable to repeat regardless given more time using tobacco and worsening of lung disease. EDISON/Obesity hypoventilation syndrome - Pt completely alert and oriented; reports that he falls asleep often at work and has gotten in trouble at work before as a result of this. Feels tired often during the day. - tolerated nasal CPAP well overnight - Also expect an element of obesity hypoventilation syndrome also contributing to acute hypercapnic respiratory failure. Hypotension --> Hypertension: - BP have been elevated in 140s to 160s/ 70s to 90s - Restarted lisinopril. Acute kidney failure: - Pt's baseline creatinine 1.2; today 1.32. - Strict Is/Os with luevano, avoid renal toxins. - Nephrology following. Renal ultrasound negative. Monitor output. Venous stasis ulcer of left leg: - Pt without leukocytosis. Will continue to follow. - Left lower leg recently debrided by wound care and found to be growing stenotrophomonas. - Same site grew Enterococcus faecalis 10/16/2019. - Pt currently on ceftazidime and doxycycline which will cover wound bacteria. - Wound care consult placed. - Encourage ambulation when able, compression wraps. Tobacco abuse: - Pt with significant smoking and chewing history, chewing as recently as during this admission while on BiPAP. - Have given nicotine patches qday. - Pt a chronic smoker and has been seen using chewing tobacco in the hospital multiple times even during BiPAP use; currently without tobacco products several days and with daily nicotine patches. Recommend he discontinue smoking and chewing tobacco moving forward. Pt reports "it ain't gonna happen", understands that his tobacco use will negatively impact his health and already has. CODE STATUS: FULL CODE. FEN/GI: DM2 Low Sodium diet. DVT ppx: Lovenox 40mg daily. Dispo: PCU Telemetry (2) SOB (shortness of breath): (3) CHF (congestive heart failure): (4) Venous stasis ulcer: (5) Acute kidney failure: (6) Hypotension: (7) GERD without esophagitis: (8) Diabetes: (9) High cholesterol: (10) Hypertension: Supervising Physician Co-Signing Physician Notes I personally examined the patient and verified all park points of history and exam, discussed case, and agree with decision making with Dr Villa. Continues to feel little better. Breathing better. Out of bed again. Vitals noted, in general he is awake and alert but appearing fatigued. HEENT normocephalic atraumatic mucous membranes moist. Lungs clear entirely on the left without rales rhonchi or wheezes; no noted rales rhonchi or wheezes, good effort no accessory muscle use. Neuro shows cranial nerves II through XII be grossly intact gross motor and sensory intact without any focal deficits. Skin shows no rashes no pallor or icterus. Acute on presumably chronic mixed hypercapnic and hypoxic respiratory failureinitially thought to be related to acute on chronic diastolic CHF, but after further review he actually has a pneumonia exacerbating a probable underlying chronic hypoventilation syndrome and/or COPD. Finish course of antibiotics, slowly wean O2, continue supportive care, pulmonary toilet, incentive spirometry. Continues to show a trend of improvement. Likely tomorrow we will be able to stop antibiotics and wean steroidswill want to follow clinically for progress. Otherwise as above Subjective 64 yo M admitted for CHF exacerbation and shortness of breath. This morning denies any trouble breathing, dyspnea on O2 supplementation, however also denies SOB off O2 supplementation. Used Bipap overnight and denied any trouble keeping it on which will be immensely helpful in controlling his blood pressure moving forward. Review of Systems Constitutional: no fever, no chills, no body aches and no fatigue Respiratory: no cough and no dyspnea Cardiovascular: no chest pain, no dyspnea and no edema Gastrointestinal: no abdominal pain, no nausea, no vomiting, no constipation and no diarrhea/loose stools Physical Exam Constitutional: cooperative; no acute distress and not ill appearing Neck: normal visual inspection Respiratory: normal respiratory effort and able to speak in complete sente nces; no respiratory distress, no labored breathing, no retractions, no cough and no audible wheezes Auscultation: lungs clear to auscultation bilaterally; no crackles, no rales, no rhonchi and no wheezes Cardiovascular: Rate/Rhythm: regular rate and regular rhythm Heart Sounds: normal S1 and normal S2; no gallop, no murmur and no cardiac rub Vessels: posterior tibial pulses present Extremities: no pedal edema and no edema Gastrointestinal (Abdomen): Inspection/Auscultation: abdomen normal to inspection and normal bowel sounds; abdomen not distended Percussion/Pa lpation: abdomen soft; abdomen nontender, no guarding, abdomen not rigid and no abdominal mass Results & Data Vital Signs (Past 12 Hours) Vital Signs Temp Pulse Pulse Resp BP BP Pulse Ox 12/02/19 08:02 36.7 C 81 20 143/88 H 91 12/02/19 07:12 63 63 20 94 12/02/19 03:12 36.4 C L 63 20 167/95 H 94 12/02/19 02:18 58 L 12 94 12/02/19 02:16 58 L 12 94 12/02/19 00:13 36.6 C 63 16 163/91 H 92 12/02/19 00:00 56 L 12/01/19 23:21 55 L 55 L 14 93 12/02/19 12/02/19 12/02/19 Range/Units 07:26 07:19 07:19 WBC 11.28 H (4.8-10.8) K/uL RBC 5.42 (4.7-6.1) M/uL Hgb 15.8 (14.0-18.0) g/dL Hct 49.5 (42-52) % MCV 91.3 (80-100) fL MCH 29.2 (25-34) pg MCHC 31.9 L (32-36) g/dL RDW Std Deviation 50.4 H (36.4-46.3) fL RDW Coeff of Bonifacio 15.2 H (11.5-14.5) % Plt Count 210 (130-400) K/uL MPV 10.4 (7.4-10.4) fL Immature Gran % (Auto) 0.1 % Neut % (Auto) 89.8 % Lymph % (Auto) 6.2 % [place] % (Auto) 3.9 % Eos % (Auto) 0.0 % Baso % (Auto) 0.0 % Immature Gran # (Auto) 0.01 (0.00-0.02) K/uL Neut # (Auto) 10.13 H (1.4-6.5) K/uL Lymph # (Auto) 0.70 L (1.2-3.4) K/uL [place] # (Auto) 0.44 (0.11-0.59) K/uL Eos # (Auto) 0.00 (0-0.5) K/uL Baso # (Auto) 0.00 (0-0.2) K/uL ABG pH (7.35-7.45) ABG pCO2 (35-46) mmHg ABG pO2 (80-95) mm/Hg ABG HCO3 (19-24) mmol/L ABG O2 Saturation (90-95) % ABG Base Excess (-9-1.8) mEq/L Amanuel Test Barometric Pressure mm/Hg Oxygen Given Sodium 144 (136-145) mmol/L Potassium 5.0 (3.5-5.1) mmol/L Chloride 105 (98-107) mmol/L Carbon Dioxide 37 H (21-32) mmol/L Anion Gap 2.0 L (3-11) BUN 41 H (7-18) mg/dl Creatinine 1.32 (0.6-1.4) mg/dl Est Cr Clr Drug Dosing 82.2 ml/min Est GFR ( Amer) 65.6 Est GFR (Non-Af Amer) 56.6 BUN/Creatinine Ratio 31.1 H (10-20) Glucose 184 H (70-99) mg/dl POC Glucose 150 H (70-99) Calcium 9.8 (8.5-10.1) mg/dl 12/02/19 12/01/19 12/01/19 Range/Units 07:16 20:43 16:13 WBC (4.8-10.8) K/uL RBC (4.7-6.1) M/uL Hgb (14.0-18.0) g/dL Hct (42-52) % MCV (80-100) fL MCH (25-34) pg MCHC (32-36) g/dL RDW Std Deviation (36.4-46.3) fL RDW Coeff of Bonifacio (11.5-14.5) % Plt Count (130-400) K/uL MPV (7.4-10.4) fL Immature Gran % (Auto) % Neut % (Auto) % Lymph % (Auto) % [place] % (Auto) % Eos % (Auto) % Baso % (Auto) % Immature Gran # (Auto) (0.00-0.02) K/uL Neut # (Auto) (1.4-6.5) K/uL Lymph # (Auto) (1.2-3.4) K/uL [place] # (Auto) (0.11-0.59) K/uL Eos # (Auto) (0-0.5) K/uL Baso # (Auto) (0-0.2) K/uL ABG pH 7.44 (7.35-7.45) ABG pCO2 55 H (35-46) mmHg ABG pO2 74 L (80-95) mm/Hg ABG HCO3 37 H (19-24) mmol/L ABG O2 Saturation 95.1 H (90-95) % ABG Base Excess 10.2 H (-9-1.8) mEq/L Amanuel Test Not Reportable Barometric Pressure 734.9 mm/Hg Oxygen Given 60% Sodium (136-145) mmol/L Potassium (3.5-5.1) mmol/L Chloride (98-107) mmol/L Carbon Dioxide (21-32) mmol/L Anion Gap (3-11) BUN (7-18) mg/dl Creatinine (0.6-1.4) mg/dl Est Cr Clr Drug Dosing ml/min Est GFR ( Amer) Est GFR (Non-Af Amer) BUN/Creatinine Ratio (10-20) Glucose (70-99) mg/dl POC Glucose 162 H 178 H (70-99) Calcium (8.5-10.1) mg/dl 12/01/19 Range/Units 11:22 WBC (4.8-10.8) K/uL RBC (4.7-6.1) M/uL Hgb (14.0-18.0) g/dL Hct (42-52) % MCV (80-100) fL MCH (25-34) pg MCHC (32-36) g/dL RDW Std Deviation (36.4-46.3) fL RDW Coeff of Bonifacio (11.5-14.5) % Plt Count (130-400) K/uL MPV (7.4-10.4) fL Immature Gran % (Auto) % Neut % (Auto) % Lymph % (Auto) % [place] % (Auto) % Eos % (Auto) % Baso % (Auto) % Immature Gran # (Auto) (0.00-0.02) K/uL Neut # (Auto) (1.4-6.5) K/uL Lymph # (Auto) (1.2-3.4) K/uL [place] # (Auto) (0.11-0.59) K/uL Eos # (Auto) (0-0.5) K/uL Baso # (Auto) (0-0.2) K/uL ABG pH (7.35-7.45) ABG pCO2 (35-46) mmHg ABG pO2 (80-95) mm/Hg ABG HCO3 (19-24) mmol/L ABG O2 Saturation (90-95) % ABG Base Excess (-9-1.8) mEq/L Amanuel Test Barometric Pressure mm/Hg Oxygen Given Sodium (136-145) mmol/L Potassium (3.5-5.1) mmol/L Chloride (98-107) mmol/L Carbon Dioxide (21-32) mmol/L Anion Gap (3-11) BUN (7-18) mg/dl Creatinine (0.6-1.4) mg/dl Est Cr Clr Drug Dosing ml/min Est GFR ( Amer) Est GFR (Non-Af Amer) BUN/Creatinine Ratio (10-20) Glucose (70-99) mg/dl POC Glucose 138 H (70-99) Calcium (8.5-10.1) mg/dl Resident Activity Tracking Resident Involvement: Resident Care Provided Care Provided: Adult Hospital Medicine (1) Diabetes Diabetes mellitus complication status: without complication Diabetes mellitus assisted insulin use: without assisted use Diabetes mellitus type: type 2 Qualified Code(s): E11.9 - Type 2 diabetes mellitus without complications (2) CHF (congestive heart failure) Heart failure chronicity: unspecified Heart failure type: unspecified Quali fied Code(s): I50.9 - Heart failure, unspecified (3) Venous stasis ulcer Laterality: left Non-pressure ulcer stage: limited to breakdown of skin Varicose vein presence: unspecified whether present Venous stasis ulcer site: calf Qualified Code(s): I83.022 - Varicose veins of left lower extremity with ulcer of calf; L97.221 - Non-pressure chronic ulcer of left calf limited to breakdown of skin (4) Hypertension Hypertension type: essential hypertension Qualified Code(s): I10 - Essential (primary) hypertension
--- NOTE | 2019-12-02 16:54 | Billing Data ---
Date of Service December 02, 2019 Coding Level of Care Code 86560 Subseq Hosp Care Lvl 3
[2019-12-03] MEDS: ALBUT/IPRATROP 3MG/0.5MG NEB 3 ML VIAL NEB SCH ×6 (03:25→23:18)
[2019-12-03] MEDS: HEPARIN SODIUM (PORCINE) 7,500 UNITS in SYRINGE 0 ML SQ SCH ×3 (05:54→20:57)
[2019-12-03] MEDS: LACTOBACILLUS ACIDOPHILUS 1 GM PACK PO SCH ×3 (07:34→17:02)
[2019-12-03] MEDS: INSULIN ASPART 100 UNITS/ML 3 ML PEN SC SCH ×4 (07:35→21:01)
[2019-12-03] MEDS: FENOFIBRATE NANOCRYSTALLIZED 145 MG TABLET PO SCH (07:35)
[2019-12-03] MEDS: INSULIN GLARGINE SOLOSTAR 100 UNITS/ML 3 ML PEN SC SCH ×2 (07:35→21:00)
[2019-12-03] MEDS: FAMOTIDINE 40 MG TABLET PO SCH (07:36)
[2019-12-03] MEDS: ATORVASTATIN 40 MG TAB PO SCH (07:36)
[2019-12-03] MEDS: DOXYCYCLINE HYCLATE 100 MG CAP PO SCH ×2 (07:36→20:57)
[2019-12-03] MEDS: ASPIRIN 81 MG ECTAB PO SCH (07:36)
[2019-12-03] MEDS: NICOTINE 14 MG/24 HR PATCH TD SCH (07:37)
[2019-12-03 08:10] LABS: Hematocrit (blood only) 51.6 % (42-52); Hemoglobin 16.6 g/dL (14.0-18.0); Immature Granulocytes # (auto) 0.02 K/uL (0.00-0.02); Immature Granulocytes % (auto) 0.2 %; Lymphocytes # (auto) 0.46 K/uL (1.2-3.4); Lymphocytes % (auto) 3.6 %; Mean Corpuscular Hgb Conc 32.2 g/dL (32-36); Mean Corpuscular Volume 90.2 fL (80-100); Mean Platelet Volume 10.2 fL (7.4-10.4); Monocytes % (auto) 4.8 %; Neutrophils # (auto) 11.53 K/uL (1.4-6.5); Neutrophils % (auto) 91.4 %; Platelet Count 202 K/uL (130-400); RDW Standard Deviation 49.5 fL (36.4-46.3); Red Blood Count 5.72 M/uL (4.7-6.1); White Blood Count 12.61 K/uL (4.8-10.8)
[2019-12-03 08:26] LABS: BUN Creatinine Ratio 28.7 (10-20); Calcium 9.6 mg/dl (8.5-10.1); Creatinine Clr Calc Pharmacy 79.6 ml/min; Est GFR (African American) 62.7; Est GFR (Non-African American) 54.1; Potassium 4.7 mmol/L (3.5-5.1)
[2019-12-03] MEDS: methylPREDNISolone 40 MG in SYRINGE 0 ML IV SCH ×2 (09:09→20:57)
--- NOTE | 2019-12-03 09:35 | Hospitalist Progress Note ---
Date of Service December 03, 2019 Assessment & Plan (1) Acute hypercapnic respiratory failure: 64 yo M admitted for JEFRY and acute hypoxic hypercapnic respiratory failure in the setting of a multifocal pneumonia. Acute hypercapnic respiratory failure 2/2 PNA: resolving - Pt's pH improving with overnight BiPAP and pneumonia tx; pH 7.44, pCO2 55; post-hypercapnic metabolic alkalosis without anion gap - Completed Abx 7 day course with ceftazidime, Doxy for pneumonia - Backing down off IV methylprednisalone 40mg q12h -> 20 mg Q12 for 12/04 - Given continued improvement have ordered PT/OT evaluations. - Had PFT done in 2011, will try to obtain records however would be reasonable to repeat regardless given more time using tobacco and worsening of lung disease. EDISON/Obesity hypoventilation syndrome - Pt completely alert and oriented; reports that he falls asleep often at work and has gotten in trouble at work before as a result of this. Feels tired often during the day. - tolerated nasal CPAP well overnight - Also expect an element of obesity hypoventilation syndrome also contributing to acute hypercapnic respiratory failure. Hypotension --> Hypertension: - BP have been elevated in 140s to 160s/ 70s to 90s - Restarted lisinopril. Acute kidney failure: resolved - Pt's baseline creatinine 1.2; today 1.32. - Strict Is/Os with luevano, avoid renal toxins. - Nephrology following. Renal ultrasound negative. Monitor output. Venous stasis ulcer of left leg: - Pt without leukocytosis. Will continue to follow. - Left lower leg recently debrided by wound care and found to be growing stenotrophomonas. - Same site grew Enterococcus faecalis 10/16/2019. - WOund culture covered by pneumonia treatment. - Wound care consult placed. - Encourage ambulation when able, compression wraps. Tobacco abuse: - Pt with significant smoking and chewing history, chewing as recently as during this admission while on BiPAP. - Pt continuing to use tobacco chew in hospital and given his elevated blood pressures have discontinued nicotine patches - Pt a chronic smoker and has been seen using chewing tobacco in the hospital multiple times even during BiPAP use; currently without tobacco products several days and with daily nicotine patches. Recommend he discontinue smoking and chewing tobacco moving forward. Pt reports "it ain't gonna happen", understands that his tobacco use will negatively impact his health and already has. CODE STATUS: FULL CODE. FEN/GI: DM2 Low Sodium diet. DVT ppx: Lovenox 40mg daily. Dispo: PCU Telemetry (2) SOB (shortness of breath): (3) CHF (congestive heart failure): (4) Venous stasis ulcer: (5) Acute kidney failure: (6) Hypotension: (7) GERD without esophagitis: (8) Diabetes: (9) High cholesterol: (10) Hypertension: Supervising Physician Co-Signing Physician Notes I personally examined the patient and verified all park points of history and exam, discussed case, and agree with decision making with Dr Villa. Continues to feel little better. Breathing continues to improve. Shortly after we leave the room respiratory let us know that they have been able to drop him to 35% FiO2. He seems to be feeling a bit better each day. Daughter present as well, she seems pleased with his progress. Vitals noted, in general he is awake and alert but appearing fatigued. HEENT normocephalic atraumatic mucous membranes moist. Right lung clear upper lung field faint rales and still a degree of diminished air entry at the base, lungs clear entirely on the left without rales rhonchi or wheezes; no noted rales rhonchi or wheezes, good effort no accessory muscle use. Neuro shows cranial nerves II through XII be grossly intact gross motor and sensory intact without any focal deficits. Skin shows no rashes no pallor or icterus. Acute on presumably chronic mixed hypercapnic and hypoxic respiratory failureinitially thought to be related to acute on chronic diastolic CHF, but after further review he actually has a pneumonia exacerbating a probable underlying chronic hypoventilation syndrome and/or COPD. DC antibiotics after today (he will have had a week of treatment) slowly wean steroids and wean oxygen as tolerated. Increase activity. Otherwise as above Subjective Continues to deny any symptomatic problems. Oxygen requirements continue to decrease with treatment. Trialing switch to nasal cannula from high flow nasal cannula today after tolerating 35% FIO2 and 20L/m. Review of Systems Constitutional: no fever, no chills, no body aches and no fatigue Respiratory: no cough and no dyspnea Cardiovascular: no chest pain, no dyspnea and no edema Gastrointestinal: no abdominal pain, no nausea, no vomiting, no constipation and no diarrhea/loose stools Physical Exam Constitutional: cooperative; no acute distress and not ill appearing Neck: normal visual inspection Respiratory: normal respiratory effort and able to speak in complete sentences; no respiratory distress, no labored breathing, no retractions, no cough and no audible wheezes Auscultation: lungs clear to auscultation bilaterally and + rhonchi (Right lung rhonchorous breath sounds); no crackles, no rales and no wheezes Cardiovascular: Rate/Rhythm: regular rate and regular rhythm Heart Sounds: normal S1 and normal S2; no gallop, no murmur and no cardiac rub Vessels: posterior tibial pulses present Extremities: no pedal edema and no edema Gastrointestinal (Abdomen): Inspection/Auscultation: abdomen normal to inspection and normal bowel sounds; abdomen not distended Percussion/Palpation: abdomen soft; abdomen nontender, no guarding, abdomen not rigid and no abdominal mass Skin: 2+ chronic pitting edema to knees bilaterally Results & Data Vital Signs (Past 12 Hours) Vital Signs Temp Pulse Pulse Resp BP BP Pulse Ox 12/03/19 07:31 36.4 C L 77 20 166/78 H 91 12/03/19 07:04 60 60 20 97 12/03/19 04:00 36.3 C L 64 16 159/87 H 96 12/03/19 03:26 64 64 16 97 12/03/19 00:00 67 12/02/19 23:29 53 L 16 94 12/02/19 23:23 36.7 C 53 L 20 175/85 H 96 12/02/19 23:01 66 20 95 12/03/19 12/03/19 12/03/19 Range/Units 16:17 11:14 08:01 WBC (4.8-10.8) K/uL RBC (4.7-6.1) M/uL Hgb (14.0-18.0) g/dL Hct (42-52) % MCV (80-100) fL MCH (25-34) pg MCHC (32-36) g/dL RDW Std Deviation (36.4-46.3) fL RDW Coeff of Bonifacio (11.5-14.5) % Plt Count (130-400) K/uL MPV (7.4-10.4) fL Immature Gran % (Auto) % Neut % (Auto) % Lymph % (Auto) % [place] % (Auto) % Eos % (Auto) % Baso % (Auto) % Immature Gran # (Auto) (0.00-0.02) K/uL Neut # (Auto) (1.4-6.5) K/uL Lymph # (Auto) (1.2-3.4) K/uL [place] # (Auto) (0.11-0.59) K/uL Eos # (Auto) (0-0.5) K/uL Baso # (Auto) (0-0.2) K/uL Sodium 142 (136-145) mmol/L Potassium 4.7 (3.5-5.1) mmol/L Chloride 103 (98-107) mmol/L Carbon Dioxide 35 H (21-32) mmol/L Anion Gap 4.0 (3-11) BUN 39 H (7-18) mg/dl Creatinine 1.37 (0.6-1.4) mg/dl Est Cr Clr Drug Dosing 79.6 ml/min Est GFR ( Amer) 62.7 Est GFR (Non-Af Amer) 54.1 BUN/Creatinine Ratio 28.7 H (10-20) Glucose 199 H (70-99) mg/dl POC Glucose 162 H 185 H (70-99) Calcium 9.6 (8.5-10.1) mg/dl 12/03/19 12/03/19 12/02/19 Range/Units 08:01 06:54 20:39 WBC 12.61 H (4.8-10.8) K/uL RBC 5.72 (4.7-6.1) M/uL Hgb 16.6 (14.0-18.0) g/dL Hct 51.6 (42-52) % MCV 90.2 (80-100) fL MCH 29.0 (25-34) pg MCHC 32.2 (32-36) g/dL RDW Std Deviation 49.5 H (36.4-46.3) fL RDW Coeff of Bonifacio 15.0 H (11.5-14.5) % Plt Count 202 (130-400) K/uL MPV 10.2 (7.4-10.4) fL Immature Gran % (Auto) 0.2 % Neut % (Auto) 91.4 % Lymph % (Auto) 3.6 % [place] % (Auto) 4.8 % Eos % (Auto) 0.0 % Baso % (Auto) 0.0 % Immature Gran # (Auto) 0.02 (0.00-0.02) K/uL Neut # (Auto) 11.53 H (1.4-6.5) K/uL Lymph # (Auto) 0.46 L (1.2-3.4) K/uL [place] # (Auto) 0.60 H (0.11-0.59) K/uL Eos # (Auto) 0.00 (0-0.5) K/uL Baso # (Auto) 0.00 (0-0.2) K/uL Sodium (136-145) mmol/L Potassium (3.5-5.1) mmol/L Chloride (98-107) mmol/L Carbon Dioxide (21-32) mmol/L Anion Gap (3-11) BUN (7-18) mg/dl Creatinine (0.6-1.4) mg/dl Est Cr Clr Drug Dosing ml/min Est GFR ( Amer) Est GFR (Non-Af Amer) BUN/Creatinine Ratio (10-20) Glucose (70-99) mg/dl POC Glucose 184 H 186 H (70-99) Calcium (8.5-10.1) mg/dl Resident Activity Tracking Resident Involvement: Resident Care Provided Care Provided: Adult Hospital Medicine (1) Diabetes Diabetes mellitus complication status: without complication Diabetes mellitus long term care social worker insulin use: without long term care social worker use Diabetes mellitus type: type 2 Qualified Code(s): E11.9 - Type 2 diabetes mellitus without complications (2) CHF (congestive heart failure) Heart failure chronicity: unspecified Heart failure type: unspecified Qualified Code(s): I50.9 - Heart failure, unspecified (3) Venous stasis ulcer Laterality: left Non-pressure ulcer stage: limited to breakdown of skin Varicose vein presence: unspecified whether present Venous stasis ulcer site: calf Qualified Code(s): I83.022 - Varicose veins of left lower extremity with ulcer of calf; L97.221 - Non-pressure chronic ulcer of left calf limited to breakdown of skin (4) Hypertension Hypertension type: essential hypertension Qualified Code(s): I10 - Essential (primary) hypertension
--- NOTE | 2019-12-03 14:53 | Pharmacy Report ---
Pharmacy Glycemic Short Note 2 - Date of Service December 03, 2019 - Glycemic Short BSG Results (Last 24 hours): 12/02/19 12/02/19 12/03/19 16:25 20:39 06:54 Glucose POC Glucose 135 H 186 H 184 H 12/03/19 12/03/19 08:01 11:14 Glucose 199 H POC Glucose 185 H OUTPATIENT ANTIDIABETIC REGIMEN: * Metformin 500mg PO Q AM * A1c = 7.2% 10/09/19 ASSESSMENT: 12/03 * Patient is currently receiving an average of 65 units of insulin per day * 32 units of basal insulin * 32 units of prandial/correctional insulin * BSGs ranging 135-199 over the past 24hrs * Steroids decreased slightly but remain at the threshold for maximized effects on glycemic control. PO intake increasing and SCr continues to improve, likely the main causes for increased BSGs despite similar/lower steroid doses. * Anticipating insulin regimen will need increased for the next 24hrs d/t : * AM Fasting BSG = 184; therefore Basal insulin needs increased * Post-prandial BSGs are elevated/BSGs rise throughout the day; therefore Tighten CF/CR 12/01 * Renal function further improved, SCr 1.1mg/dl, continues IV ceftazidime and PO doxycyline. * Patient is currently receiving an average of 40 units of insulin per day * 18 units of basal insulin * 22 units of prandial/correctional insulin * BSGs ranging 142 -174 over the past 24hrs, two other elevated blood sugars via PRP were drawn after meals * Risk factors for insulin resistance are constant over the past 24hrs * Steroid dosing continuing at Solu-medrol 60mg IV Q12H * Anticipating insulin regimen will need increased for the next 24hrs d/t : * AM Fasting BSG = 174mg/dl therefore Basal insulin needs increased * Post-prandial BSGs are elevated/BSGs rise throughout the day therefore Tighten CR 11/30 * Blood sugars well controlled over past 24 hours, received 9 total units of insulin yesterday, 6 units basal, 3 units bolus. * Patient continues on Solu-medrol 60mg IV Q12H, IV ceftazidime, and doxycycline PO * Diet advanced to type 2 diabetic diet * Renal function much improved, SCr 1.32mg/dl today * Increase basal as diet increasing and fasting blood sugar above goal at 177mg/dl 11/29 * BSGs well controlled over last 24 hrs * New events in last 24 hrs: Norepi weaned off, renal fxn improving, IV steroids d/c'd and then reordered to begin at higher dose this evening, Doxy PO added * Patient remains NPO at this time. Fasting BSG down to 96 this AM and no steroids scheduled for administration this AM - hold Lantus, but resume this evening per scale due to resuming IV solu-medrol * Will continue Q 4 hr BSG checks with coverage due to new steroid order * Novolog CF and CR reasonable to continue 11/28 * Type 2 diabetic, reasonably well controlled with metformin monotherapy, admitted to ICU secondary to hypercapnic resp failure secondary to PNA + OHS as well as septic shock * Pt remains NPO at this time * Receiving IV ABX, norepi pressor support, and IV solu-medrol * Fasting BSG this AM = 120 with 18 units basal insulin on board * Will continue weight based (using adjusted body weight) SQ basal/bolus dosing at this time. Will utilize dosing scale for Lantus given NPO status but significant stressors PLAN FOR INPATIENT GLYCEMIC CONTROL: * Hold outpatient oral diabetes medications (metformin) * Basal insulin - INCREASE * Lantus SQ BID per scale * 0 units if BSG less than 110 * 14 units if BSG 110-180 * 22 units if BSG above 180 * Bolus insulin * NovoLog per scale ACHS * Goal Range: Low 110 mg/dL - High 140 mg/dL * TIGHTEN Correction Factor: 18 mg/dL/unit * TIGHTEN: Nutritional / Prandial insulin per carb ratio of 1 unit per 6 grams CHO consumed PLAN FOR DISCHARGE: * A1c 7.2% on 10/09/19 * Goal at/near 7% for patient's age/comorbidities * Renal function has improved * Resume metformin on discharge
[2019-12-03] MEDS ORDERED: Nursing to Pharmacy Communication ONE (17:21)
--- NOTE | 2019-12-03 17:37 | Billing Data ---
Date of Service December 03, 2019 Coding Level of Care Code 01086 Subseq Hosp Care Lvl 3
[2019-12-03] MEDS ORDERED: lisinopriL 40 MG TAB PO ONE (17:45)
[2019-12-04] MEDS: ALBUT/IPRATROP 3MG/0.5MG NEB 3 ML VIAL NEB SCH ×6 (02:58→23:04)
[2019-12-04] MEDS: HEPARIN SODIUM (PORCINE) 7,500 UNITS in SYRINGE 0 ML SQ SCH ×3 (05:35→20:50)
[2019-12-04 07:30] LABS: Hematocrit (blood only) 52.4 % (42-52); Hemoglobin 16.9 g/dL (14.0-18.0); Immature Granulocytes # (auto) 0.02 K/uL (0.00-0.02); Immature Granulocytes % (auto) 0.2 %; Lymphocytes # (auto) 0.62 K/uL (1.2-3.4); Lymphocytes % (auto) 4.7 %; Mean Corpuscular Hemoglobin 29.1 pg (25-34); Mean Corpuscular Hgb Conc 32.3 g/dL (32-36); Mean Corpuscular Volume 90.3 fL (80-100); Mean Platelet Volume 10.1 fL (7.4-10.4); Monocytes # (auto) 0.84 K/uL (0.11-0.59); Monocytes % (auto) 6.4 %; Neutrophils # (auto) 11.71 K/uL (1.4-6.5); Neutrophils % (auto) 88.7 %; Platelet Count 184 K/uL (130-400); RDW Coefficient of Variation 15.1 % (11.5-14.5); RDW Standard Deviation 49.8 fL (36.4-46.3); White Blood Count 13.19 K/uL (4.8-10.8)
[2019-12-04] MEDS: LACTOBACILLUS ACIDOPHILUS 1 GM PACK PO SCH ×3 (07:45→16:38)
[2019-12-04] MEDS: ASPIRIN 81 MG ECTAB PO SCH (07:45)
[2019-12-04] MEDS: lisinopriL 40 MG TAB PO SCH (07:45)
[2019-12-04] MEDS: FAMOTIDINE 40 MG TABLET PO SCH (07:46)
[2019-12-04] MEDS: DOXYCYCLINE HYCLATE 100 MG CAP PO SCH ×2 (07:46→20:03)
[2019-12-04] MEDS: INSULIN ASPART 100 UNITS/ML 3 ML PEN SC SCH ×4 (07:46→20:51)
[2019-12-04] MEDS: FENOFIBRATE NANOCRYSTALLIZED 145 MG TABLET PO SCH (07:46)
[2019-12-04] MEDS: ATORVASTATIN 40 MG TAB PO SCH (07:46)
[2019-12-04] MEDS: INSULIN GLARGINE SOLOSTAR 100 UNITS/ML 3 ML PEN SC SCH ×2 (07:47→20:51)
--- NOTE | 2019-12-04 08:07 | Pharmacy Report ---
Pharmacy Glycemic Short Note 2 - Date of Service December 04, 2019 - Glycemic Short BSG Results (Last 24 hours): 12/03/19 12/03/19 12/03/19 08:01 11:14 16:17 Glucose 199 H POC Glucose 185 H 162 H 12/03/19 12/04/19 20:17 07:19 Glucose POC Glucose 137 H 108 H OUTPATIENT ANTIDIABETIC REGIMEN: * Metformin 500mg PO Q AM * A1c = 7.2% 10/09/19 ASSESSMENT: 12/04 * Fasting BSG 108 this AM with 32 units basal on board * Patient received 65 units of insulin over last 24 hrs while tolerating a diet * Will give 10 units Lantus this AM as current scale states 0 units this AM - current BSG pattern suggests at least 20 units basal insulin per day with current stressors. * Will adjust Lantus scale for ongoing doses with current steroid regimen * Novolog CF and CR performing well since yesterday's change 12/03 * Patient is currently receiving an average of 65 units of insulin per day * 32 units of basal insulin * 32 units of prandial/correctional insulin * BSGs ranging 135-199 over the past 24hrs * Steroids decreased slightly but remain at the threshold for maximized effects on glycemic control. PO intake increasing and SCr continues to improve, likely the main causes for increased BSGs despite similar/lower steroid doses. * Anticipating insulin regimen will need increased for the next 24hrs d/t : * AM Fasting BSG = 184; therefore Basal insulin needs increased * Post-prandial BSGs are elevated/BSGs rise throughout the day; therefore Tighten CF/CR 12/01 * Renal function further improved, SCr 1.1mg/dl, continues IV ceftazidime and PO doxycyline. * Patient is currently receiving an average of 40 units of insulin per day * 18 units of basal insulin * 22 units of prandial/correctional insulin * BSGs ranging 142 -174 over the past 24hrs, two other elevated blood sugars via PRP were drawn after meals * Risk factors for insulin resistance are constant over the past 24hrs * Steroid dosing continuing at Solu-medrol 60mg IV Q12H * Anticipating insulin regimen will need increased for the next 24hrs d/t : * AM Fasting BSG = 174mg/dl therefore Basal insulin needs increased * Post-prandial BSGs are elevated/BSGs rise throughout the day therefore Tighten CR 11/30 * Blood sugars well controlled over past 24 hours, received 9 total units of insulin yesterday, 6 units basal, 3 units bolus. * Patient continues on Solu-medrol 60mg IV Q12H, IV ceftazidime, and doxycycline PO * Diet advanced to type 2 diabetic diet * Renal function much improved, SCr 1.32mg/dl today * Increase basal as diet increasing and fasting blood sugar above goal at 177mg/dl 11/29 * BSGs well controlled over last 24 hrs * New events in last 24 hrs: Norepi weaned off, renal fxn improving, IV steroids d/c'd and then reordered to begin at higher dose this evening, Doxy PO added * Patient remains NPO at this time. Fasting BSG down to 96 this AM and no steroids scheduled for administration this AM - hold Lantus, but resume this evening per scale due to resuming IV solu-medrol * Will continue Q 4 hr BSG checks with coverage due to new steroid order * Novolog CF and CR reasonable to continue 11/28 * Type 2 diabetic, reasonably well controlled with metformin monotherapy, admitted to ICU secondary to hypercapnic resp failure secondary to PNA + OHS as well as septic shock * Pt remains NPO at this time * Receiving IV ABX, norepi pressor support, and IV solu-medrol * Fasting BSG this AM = 120 with 18 units basal insulin on board * Will continue weight based (using adjusted body weight) SQ basal/bolus dosing at this time. Will utilize dosing scale for Lantus given NPO status but significant stressors PLAN FOR INPATIENT GLYCEMIC CONTROL: * Hold outpatient oral diabetes medications (metformin) * Basal insulin - * Lantus 10 units SQ x 1 this AM * the Lantus SQ BID per scale * 0 units if BSG less than 110 * 10 units if BSG 110-180 * 15 units if BSG above 180 * Bolus insulin * NovoLog per scale ACHS * Goal Range: Low 110 mg/dL - High 140 mg/dL * TIGHTEN Correction Factor: 18 mg/dL/unit * TIGHTEN: Nutritional / Prandial insulin per carb ratio of 1 unit per 6 grams CHO consumed PLAN FOR DISCHARGE: * A1c 7.2% on 10/09/19 * Goal at/near 7% for patient's age/comorbidities * Renal function has improved * Resume metformin on discharge
--- NOTE | 2019-12-04 08:47 | Hospitalist Progress Note ---
Date of Service December 04, 2019 Assessment & Plan (1) Acute hypercapnic respiratory failure: 64 yo M admitted on 11/24 for acute hypoxic hypercapnic respiratory failure in the setting of a multifocal pneumonia. Acute hypercapnic/hypoxic respiratory failure 2/2 PNA: resolving - lobar consolidations visualized on chest CT scan will need to be followed up with [address] to confirm inflammatory vs. neoplastic origin - Patient continues to sat well with oxygen taper, now on 6L via NC; we will continue to wean oxygen today as tolerated - mild increase in WBC count (13.19) today, up from 12.6 yesterday, although patient demonstrates clinical improvement and continues to be afebrile - presumed community acquired source as patient had no risk factors for HCAP, although no sputum culture was done. 2/2 Blood cultures negative. - Continue ceftazidime and Doxy for pneumonia, currently on day 5 of 7. - Taper IV methylprednisalone 40mg q12h -> 20 mg Q12 today (12/04) - continue use of incentive spirometry and pulmonary toileting. EDISON/Obesity hypoventilation syndrome - ECHO (11/25/19) showed no evidence of R sided heart strain or elevated pulmonary pressure - although he has not had a formal sleep study, highly suspicious given subjective history of daytime sleepiness - tolerated nasal CPAP well overnight; would benefit from this as an outpatient, as it is likely contributing to acute hypoxic/hypercapnic respiratory failure Concern of COPD with h/o Tobacco abuse: - Pt with significant smoking and chewing history (>50 pack year history), - Patient reports PFTs in 2012, although he is unsure of where he had them done - recommend he repeat as outpatient given his worsening lung disease - 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 Venous stasis ulcer of left leg: improving - improved on exam today - Left lower leg recently debrided by wound care and found to be growing stenotrophomonas and coyrnebacterium. - antibiotics for PNA with adequate coverage for the above. - Wound care consult placed. - Encourage ambulation when able, compression wraps. Hypertension: - BP 159/93 today - continue home dose Lisinopril 40mg and Amlodipine 5mg - continue to monitor Hyperlipidemia: - continue home atorvastatin, fenofibrate and daily baby ASA GERD -continue home pepcid CODE STATUS: FULL CODE. FEN/GI: DM2, Low Sodium diet. DVT ppx: Heparin 7500units, SQ, Q8h Dispo: PCU Telemetry (2) SOB (shortness of breath): (3) CHF (congestive heart failure): (4) Venous stasis ulcer: (5) Acute kidney failure: (6) Hypotension: (7) GERD without esophagitis: (8) Diabetes: (9) High cholesterol: (10) Hypertension: Supervising Physician Co-Signing Physician Notes Resident Physician Supervision Note: I independently interviewed and examined the patient and verified the park history and physical, reviewed labs and image studies, discussed the case with the resident Dr. Cobb and agree with the findings and care plan. Subjective No acute events overnight. Feeling well. Breathing improved from yesterday. Eating and drinking well. Toileting well. Ambulating normally. Provides history that he began getting short of breath with walking 2-3 weeks preceding admission. Review of Systems Constitutional: no fever Respiratory: no cough and no dyspnea Physical Exam Constitutional: WD/WN, vitals as above + morbidly obese Eyes: PERRL, conjunctivae normal, anicteric sclerae ENMT: external ear and nose normal, oropharynx normal Neck: trachea midline Respiratory: normal respiratory effort; no labored breathing and no cough A uscultation: + wheezes (with forced expiration); no crackles, no rales, no rhonchi and no pleural rub Equal air movement in b/l lung mata Cardiovascular: RRR, no murmur, no edema Palpation: no thrill Vessels: normal carotid upstroke; no carotid bruit Extremities: + pedal edema (+2 to the knee, b/l) Gastrointestinal (Abdomen): normal bowel sounds, soft, nontender, no hepatosplenomegaly Skin: + wound (left LE; no weeping, warmth or pain to the touch) chronic venous stasis changes on b/l lower extremities Neurologic: No focal deficits Psychiatric: A+Ox3, euthymic affect Genitourinary: Tabor catheter draining yellow-colored urine without clots Results & Data Vital Signs (Past 12 Hours) Vital Signs Temp Pulse Pulse Pulse Resp BP Pulse Ox 12/04/19 07:30 36.4 C L 71 20 159/93 H 93 12/04/19 07:03 69 18 96 12/04/19 06:37 70 24 95 12/04/19 03:42 36.3 C L 63 16 159/78 H 95 12/04/19 02:59 60 13 93 12/04/19 02:58 58 L 13 93 12/04/19 00:49 59 L 12/03/19 23:30 36.4 C L 61 20 180/84 H 93 12/03/19 23:21 58 L 18 95 12/03/19 23:19 58 L 18 95 12/03/19 22:19 105 H Resident Activity Tracking Resident Involvement: Resident Care Provided Care Provided: Adult [facility] (1) Diabetes Diabetes mellitus complication status: without complication Diabetes mellitus alf insulin use: without alf use Diabetes mellitus type: type 2 Qualified Code(s): E11.9 - Type 2 diabetes mellitus without complications (2) CHF (congestive heart failure) Heart failure chronicity: unspecified Heart failure type: unspecified Qualified Code(s): I50.9 - Heart failure, unspecified (3) Venous stasis ulcer Laterality: left Non-pressure ulcer stage: limited to breakdown of skin Varicose vein presence: unspecified whether present Venous stasis ulcer site: calf Qualified Code(s): I83.022 - Varicose veins of left lower extremity with ulcer of calf; L97.221 - Non-pressure chronic ulcer of left calf limited to breakdown of skin (4) Hypertension Hypertension type: essential hypertension Qualified Code(s): I10 - Essential (primary) hypertension
[2019-12-04] MEDS ORDERED: INSULIN GLARGINE SOLOSTAR 100 UNITS/ML 3 ML PEN SC ONE (09:00)
[2019-12-04] MEDS: methylPREDNISolone 40 MG in SYRINGE 0 ML IV SCH (09:05)
[2019-12-04 10:30] LABS: Potassium 4.9 mmol/L (3.5-5.1)
[2019-12-04 10:31] LABS: BUN Creatinine Ratio 26.8 (10-20); Calcium 9.6 mg/dl (8.5-10.1); Creatinine Clr Calc Pharmacy 81.6 ml/min; Est GFR (Non-African American) 56.1
[2019-12-04] MEDS ORDERED: ACETAMINOPHEN 325 MG TAB ONE (19:47)
[2019-12-04] MEDS ORDERED: methylPREDNISolone 20 MG in SYRINGE 0 ML IV SCH (21:00)
[2019-12-04] MEDS ORDERED: DOXYCYCLINE HYCLATE 100 MG CAP PO SCH (21:00)
[2019-12-05] MEDS: ALBUT/IPRATROP 3MG/0.5MG NEB 3 ML VIAL NEB SCH ×6 (02:22→23:15)
[2019-12-05] MEDS: HEPARIN SODIUM (PORCINE) 7,500 UNITS in SYRINGE 0 ML SQ SCH ×3 (05:39→21:14)
[2019-12-05] MEDS: predniSONE 20 MG TAB PO SCH ×2 (07:39→21:13)
[2019-12-05] MEDS: INSULIN ASPART 100 UNITS/ML 3 ML PEN SC SCH ×4 (07:40→21:12)
[2019-12-05] MEDS: INSULIN GLARGINE SOLOSTAR 100 UNITS/ML 3 ML PEN SC SCH ×2 (07:41→21:12)
[2019-12-05] MEDS: ASPIRIN 81 MG ECTAB PO SCH (07:41)
[2019-12-05] MEDS: LACTOBACILLUS ACIDOPHILUS 1 GM PACK PO SCH ×3 (07:41→17:02)
[2019-12-05] MEDS: FENOFIBRATE NANOCRYSTALLIZED 145 MG TABLET PO SCH (07:42)
[2019-12-05] MEDS: ATORVASTATIN 40 MG TAB PO SCH (07:42)
[2019-12-05] MEDS: FAMOTIDINE 40 MG TABLET PO SCH (07:42)
[2019-12-05] MEDS: lisinopriL 40 MG TAB PO SCH (07:42)
[2019-12-05] MEDS: ACETAMINOPHEN 325 MG TAB PO PRN ×3 (07:45→20:10)
[2019-12-05] MEDS ORDERED: INSULIN GLARGINE SOLOSTAR 100 UNITS/ML 3 ML PEN SC ONE (09:00)
--- NOTE | 2019-12-05 09:04 | Pharmacy Report ---
Pharmacy Glycemic Short Note 2 - Date of Service December 05, 2019 - Glycemic Short BSG Results (Last 24 hours): 12/04/19 12/04/19 12/04/19 07:20 11:16 16:03 Glucose 133 H POC Glucose 135 H 148 H 12/04/19 12/05/19 20:22 07:09 Glucose POC Glucose 125 H 104 H OUTPATIENT ANTIDIABETIC REGIMEN: * Metformin 500mg PO Q AM * A1c = 7.2% 10/09/19 ASSESSMENT: 12/05 * Steroid dose has changed over last 24 hrs, Solumedrol 40mg IV Q 12 hrs --> 20mg Q 12 hrs --> Prednisone 40mg PO BID * Fasting BSG 104 this AM with 20 units basal on board - will continue similar doses over next 24 hrs as step down in steroid dose is not large and BID dosing is being utilized for Prednisone * Novolog CF and CR will be continued today and post-prandial trend monitored 12/04 * Fasting BSG 108 this AM with 32 units basal on board * Patient received 65 units of insulin over last 24 hrs while tolerating a diet * Will give 10 units Lantus this AM as current scale states 0 units this AM - current BSG pattern suggests at least 20 units basal insulin per day with current stressors. * Will adjust Lantus scale for ongoing doses with current steroid regimen * Novolog CF and CR performing well since yesterday's change 12/03 * Patient is currently receiving an average of 65 units of insulin per day * 32 units of basal insulin * 32 units of prandial/correctional insulin * BSGs ranging 135-199 over the past 24hrs * Steroids decreased slightly but remain at the threshold for maximized effects on glycemic control. PO intake increasing and SCr continues to improve, likely the main causes for increased BSGs despite similar/lower steroid doses. * Anticipating insulin regimen will need increased for the next 24hrs d/t : * AM Fasting BSG = 184; therefore Basal insulin needs increased * Post-prandial BSGs are elevated/BSGs rise throughout the day; therefore Tighten CF/CR PLAN FOR INPATIENT GLYCEMIC CONTROL: * Hold outpatient oral diabetes medications (metformin) * Basal insulin - * Lantus 10 units SQ x 1 this AM * the Lantus SQ BID per scale * 0 units if BSG less than 110 * 10 units if BSG 110-200 * 15 units if BSG above 200 * Bolus insulin * NovoLog per scale ACHS * Goal Range: Low 110 mg/dL - High 140 mg/dL * TIGHTEN Correction Factor: 18 mg/dL/unit * TIGHTEN: Nutritional / Prandial insulin per carb ratio of 1 unit per 6 grams CHO consumed PLAN FOR DISCHARGE: * A1c 7.2% on 10/09/19 * Goal at/near 7% for patient's age/comorbidities * Resume metformin on discharge if no contraindications present at time of discharge
[2019-12-05] MEDS: DOXYCYCLINE HYCLATE 100 MG CAP PO SCH ×2 (09:33→21:13)
[2019-12-05] MEDS: AMLODIPINE BESYLATE 5 MG TAB PO SCH (09:33)
--- NOTE | 2019-12-05 14:34 | Hospitalist Progress Note ---
Date of Service December 05, 2019 Assessment & Plan (1) Acute hypercapnic respiratory failure: 64 yo M admitted on 11/24 for acute hypoxic hypercapnic respiratory failure in the setting of a multifocal pneumonia. Acute hypercapnic/hypoxic respiratory failure 2/2 PNA: resolving - lobar consolidations visualized on chest CT scan will need to be followed up with [address] to confirm inflammatory vs. neoplastic origin - Patient continues to sat well with oxygen taper, now satting 90 on room air; continue to monitor pulse ox with return to oxygen with desaturation - patient continues to clinically improve and remains afebrile - No sputum culture was done. 2/2 Blood cultures negative. - Continue ceftazidime and Doxy for pneumonia, currently on day 6 of 7. - Taper IV methylprednisalone 20 mg Q12 converted to PO Prednisone 40mg, BID - continue use of incentive spirometry and pulmonary toileting EDISON/Obesity hypoventilation syndrome - ECHO (11/25/19) showed no evidence of R sided heart strain or elevated pulmonary pressure - although he has not had a formal sleep study, highly suspicious given subjective history of daytime sleepiness - tolerated nasal CPAP well overnight; would benefit from this as an outpatient, as it is likely contributing to acute hypoxic/hypercapnic respiratory failure Concern of COPD with h/o Tobacco abuse: - Pt with significant smoking and chewing history (>50 pack year history), - Patient reports PFTs in 2012, although he is unsure of where he had them done - recommend he repeat as outpatient given his worsening lung disease - 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 Venous stasis ulcer of left leg: improving - Left lower leg recently debrided by wound care and found to be growing stenotrophomonas and coyrnebacterium. - antibiotics for PNA with adequate coverage for the above. - Wound care consult placed. - Encourage ambulation when able, compression wraps. Hypertension: - sys BP ranges 150s-160s, dt ranges 80s-100 - continue home dose Lisinopril 40mg; home amlodipine 5mg restarted today 12/05 - continue to monitor Hyperlipidemia: - continue home atorvastatin, fenofibrate and daily baby ASA GERD -continue home pepcid CODE STATUS: FULL CODE. FEN/GI: DM2, Low Sodium diet. DVT ppx: Heparin 7500units, SQ, Q8h Dispo: PCU Telemetry to Med/surg; awaiting placement for acute rehab (2) SOB (shortness of breath): (3) CHF (congestive heart failure): (4) Venous stasis ulcer: (5) Acute kidney failure: (6) Hypotension: (7) GERD without esophagitis: (8) Diabetes: (9) High cholesterol: (10) Hypertension: Supervising Physician Co-Signing Physician Notes Resident Physician Supervision Note: I independently interviewed and examined the patient and verified the park history and physical, reviewed labs and image studies, discussed the case with the resident Dr. Cobb and agree with the findings and care plan. Subjective No acute events overnight. Feeling well. Breathing continues to improve. Eating and drinking well. Toileting well. Ambulating normally. Using incentive spirometer Review of Systems Review of Systems: All systems reviewed & are unremarkable except as noted in HPI & below Physical Exam Constitutional: WD/WN, vitals as above + morbidly obese Eyes: PERRL, conjunctivae normal, anicteric sclerae ENMT: external ear and nose normal, oropharynx normal Neck: trachea midline Respiratory: normal respiratory effort; no labored breathing and no cough Auscultation: + wheezes (with forced expiration); no crackles, no rales, no rhonchi and no pleural rub Good air movement b/l Cardiovascular: RRR, no murmur, no edema Palpation: no thrill Vessels: normal carotid upstroke; no carotid bruit Extremities: + pedal edema (+2 to the knee, b/l) Gastrointestinal (Abdomen): normal bowel sounds, soft, nontender, no hepatosplenomegaly Skin: + wound (left LE; no weeping, warmth or pain to the touch) Psychiatric: A+Ox3, euthymic affect Results & Data Vital Signs (Past 12 Hours) Vital Signs Temp Pulse Pulse Pulse Pulse Resp BP 12/05/19 12:00 36.7 C 71 18 12/05/19 11:35 57 L 20 12/05/19 09:32 72 12/05/19 07:10 66 24 12/05/19 07:01 36.4 C L 57 L 24 12/05/19 06:45 62 12/05/19 03:17 36.4 C L 59 L 20 162/88 H BP Pulse Ox 12/05/19 12:00 167/87 H 90 12/05/19 11:35 92 12/05/19 09:32 154/77 H 12/05/19 07:10 90 12/05/19 07:01 173/99 H 94 12/05/19 06:45 12/05/19 03:17 93 Resident Activity Tracking Resident Involvement: Resident Care Provided Care Provided: Adult Hospital Medicine (1) Diabetes Diabetes mellitus complication status: without complication 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: without long-term use Diabetes mellitus type: type 2 Qualified Code(s): E11.9 - Type 2 diabetes mellitus without complications (2) CHF (congestive heart failure) Heart failure chronicity: unspecified Heart failure type: unspecified Qualified Code(s): I50.9 - Heart failure, unspecified (3) Venous stasis ulcer Laterality: left Non-pressure ulcer stage: limited to breakdown of skin Varicose vein presence: unspecified whether present Venous stasis ulcer site: calf Qualified Code(s): I83.022 - Varicose veins of left lower extremity with ulcer of calf; L97.221 - Non-pressure chronic ulcer of left calf limited to breakdown of skin (4) Hypertension Hypertension type: essential hypertension Qualified Code(s): I10 - Essential (primary) hypertension
[2019-12-05 15:30] LABS: Creatinine Clr Calc Pharmacy 83.1 ml/min; Est GFR (African American) 66.8; Est GFR (Non-African American) 57.7
[2019-12-06] MEDS ORDERED: INSULIN ASPART 100 UNITS/ML 3 ML PEN SC SCH (02:00)
[2019-12-06] MEDS: ALBUT/IPRATROP 3MG/0.5MG NEB 3 ML VIAL NEB SCH ×4 (03:18→15:49)
[2019-12-06] MEDS: ACETAMINOPHEN 325 MG TAB PO PRN (04:38)
[2019-12-06] MEDS: HEPARIN SODIUM (PORCINE) 7,500 UNITS in SYRINGE 0 ML SQ SCH (06:37)
[2019-12-06 08:04] LABS: Creatinine Clr Calc Pharmacy 97.2 ml/min; Est GFR (African American) 80.9; Est GFR (Non-African American) 69.8
[2019-12-06] MEDS: LACTOBACILLUS ACIDOPHILUS 1 GM PACK PO SCH (09:00)
[2019-12-06] MEDS: ASPIRIN 81 MG ECTAB PO SCH (09:00)
[2019-12-06] MEDS: DOXYCYCLINE HYCLATE 100 MG CAP PO SCH (09:00)
[2019-12-06] MEDS: AMLODIPINE BESYLATE 5 MG TAB PO SCH (09:01)
[2019-12-06] MEDS: ATORVASTATIN 40 MG TAB PO SCH (09:01)
[2019-12-06] MEDS: lisinopriL 40 MG TAB PO SCH (09:01)
[2019-12-06] MEDS: predniSONE 20 MG TAB PO SCH (09:01)
[2019-12-06] MEDS: INSULIN GLARGINE SOLOSTAR 100 UNITS/ML 3 ML PEN SC SCH (09:01)
[2019-12-06] MEDS: FAMOTIDINE 40 MG TABLET PO SCH (09:01)
[2019-12-06] MEDS: FENOFIBRATE NANOCRYSTALLIZED 145 MG TABLET PO SCH (09:01)
[2019-12-06] MEDS: INSULIN ASPART 100 UNITS/ML 3 ML PEN SC SCH (09:02)
--- NOTE | 2019-12-06 10:25 | Discharge Summary ---
Date of Service December 06, 2019 Admission HPI Per Admitting Provider Elliot Kearns is a 64yo C male with history of CHF, HTN/HLP/DM presenting with 2-3 days of worsening SOB, dyspnea with minimal exertion. He reports only being able to walk 10 feet before becoming short of breath. Also with cough, productive for white mucus. +Orthopnea +5 to 6# weight gain over the last month, +LE edema. No prior admissions for CHF exacerbation. He admits to overindulging in salt over the holiday season. Has not missed his medications. Denies pleuritic CP, CP, palpitations, hemoptysis, abdominal pain, nausea, vomiting, diarrhea, constipation. Denies fevers/chills. ER Course: Albuterol Admission Exam Per Admitting Provider General: Obese patient resting comfortably, mildly tachypneic, non- toxic in appearance, AA&O x 4, patient becomes quite dyspneic and hypoxic with minimal exertion Skin: warm, dry, no rashes, wound on left lower extremity with granulation tissue/eschar, no bleeding/drainage/evidence of secondary infection HEENT: NC/AT, PERRL, EOMI, anicteric sclera, conjunctiva without injection, external ear normal to inspection and nontender, nares patent, moist mucus membranes, dentition intact, no oropharyngeal lesions, neck supple, trachea midline, no LAD, no thyromegaly, evaluation of JVD limited secondary to body habitus Heart: +S1/S2, regular, no m/r/g Lungs: equal air entry bilaterally, + rales in bilateral bases, left more than right, no rhonchi/wheezes Abd: Hypoactive bowel sounds, soft, NT, distended and tympanic to percussion, no masses/organomegaly/ascites Ext: warm, 2+ pulses in UE/LE bilaterally, wound on left anterior monge with dressing in place. No crepitus/bulla/streaking. 2+ pitting edema of left lower extremity, 1+ pitting edema of right lower extremity Neuro: nonfocal, patient AA&O x 4, speech intact, no facial droop, moving all extremities on command with equal strength 5/5 Principal Diagnosis Hypoxic, hypercapnic, Respiratory Failure Discharge Exam Constitutional WD/WN, vitals as above + morbidly obese Eyes PERRL, conjunctivae normal, anicteric sclerae ENMT external ear and nose normal, oropharynx normal Neck trachea midline Respiratory normal respiratory effort; no labored breathing and no cough Auscultation: + wheezes (with forced expiration); no crackles, no rales, no rhon chi and no pleural rub Cardiovascular RRR, no murmur, no edema Palpation: no thrill Vessels: normal carotid upstroke; no carotid bruit Extremities: + pedal edema (+2 to the knee, b/l) Gastrointestinal (Abdomen) normal bowel sounds, soft, nontender, no hepatosplenomegaly Skin + wound (left LE; no weeping, warmth or pain to the touch) Psychiatric A+Ox3, euthymic affect Discharge Data Allergies Allergy/AdvReac Type Severity Reaction Status Date / Time No Known Allergies Allergy Verified 11/24/19 16:17 Consultations 11/24/19 16:53 ED Decision to Admit Stat 11/27/19 10:00 Consult Pulmonology Routine 11/27/19 14:07 Consult Nephrology Routine 11/27/19 15:01 Consult [employer] Routine Ordered Studies 11/24/19 19:32 US venous doppler LE LT Routine 11/27/19 09:00 CT chest wo con Urgent 11/28/19 08:33 US renal/blad retro comp Urgent Hospital Course (1) Acute hypercapnic respiratory failure: 64 yo M admitted on 11/24/19 for acute hypoxic hypercapnic respiratory failure, requiring intubation and mechanical ventilation, in the setting of a multifocal pneumonia. Acute hypercapnic/hypoxic respiratory failure 2/2 PNA Lobar consolidations visualized on admission chest CT scan will need to be followed up with [address] to confirm inflammatory vs. neoplastic origin. Although no sputum culture was done, he completed a 7 day course of Doxycycline and Ceftazidime. 2/2 Blood cultures negative through 5 days. Mr. Kearns demonstrated a significant clinical improvement throughout his hospital stay, and was able to be weaned to 1L oxygen via NC by time of discharge. He was also treated with steroids, which will need to be tapered during his acute rehab stay. We recommend the following taper: Prednisone 40mg, PO, daily for 3 days, followed by 20mg, PO, daily for 3 days. EDISON/Obesity hypoventilation syndrome Although he has not had a formal sleep study, highly suspicious given subjective history of daytime sleepiness. He tolerated nasal CPAP well overnight while in the hospital. He would benefit from this both in rehab and as an outpatient, as it is likely contributing to acute hypoxic/hypercapnic respiratory failure. Please evaluate and treat with night time positive pressure ventilation as appropriate. ECHO (11/25/19) showed no evidence of R sided heart strain or elevated pulmonary pressure. Concern of COPD with h/o Tobacco abuse: Pt with significant smoking and chewing history (>50 pack year history). 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 He reports PFTs in 2011, although he is unsure of where he had them done or of the results. We recommend he repeat as outpatient given his worsening lung disease. Currently in non-contemplative stage of change as far as tobacco cessation goes. Acute kidney failure - Pt's baseline creatinine 1.2 (08/2019), but was as high as 2.82 during hospital stay. 1.11 on day of discharge. The suspected etiology is ATN. Nephrology was consulted but signed off when JEFRY resolved. Venous stasis ulcer of left leg: improving - Left lower leg recently debrided by wound care and found to be growing stenotrophomonas and coyrnebacterium. Antibiotics for PNA with adequate coverage for the above. Bilateral knee high compression stockings ordered. Hypertension: BP elevated throughout hospital stay. BP on day of discharge 148/73. Continue home dose Lisinopril 40mg; home amlodipine 5mg. Hyperlipidemia: - continue home atorvastatin 40mg, fenofibrate 145mg, and daily baby ASA GERD Continue famotidine 40mg daily. (2) SOB (shortness of breath): (3) CHF (congestive heart failure): (4) Venous stasis ulcer: (5) Acute kidney failure: (6) Hypotension: (7) GERD without esophagitis: (8) Diabetes: (9) High cholesterol: (10) Hypertension: Total Time Total Time Spent Total Time Spent (In Minutes): see attending attestation Discharge Plan Discharge Items Patient Disposition: Transfer Longterm Fac Reason For Visit: SOB Discharge Diagnosis: Respiratory Failure with Hypoxia Condition on Discharge: Fair Activity: Resume your previous activity Non-emergency contact: Primary Care Provider Call non-emergency contact if: you have any medication questions Follow-up/Referrals: Ludwig Vargas CRNP [Primary Care Provider] - Diet: Carb Consistent or DM2, Heart Healthy and Low Sodium (2gm) Addtl Attending Provider Instructions: 64 yo M admitted on 11/24/19 for acute hypoxic hypercapnic respiratory failure, requiring intubation and mechanical ventilation, in the setting of a multifocal pneumonia. Acute hypercapnic/hypoxic respiratory failure 2/2 PNA Lobar consolidations visualized on admission chest CT scan will need to be followed up with [address] to confirm inflammatory vs. neoplastic origin. Although no sputum culture was done, he completed a 7 day course of Doxycycline and Ceftazidime. 2/2 Blood cultures negative through 5 days. Mr. Kearns demonstrated a significant clinical improvement throughout his hospital stay, and was able to be weaned to 1L oxygen via NC by time of discharge. He was also treated with steroids, which will need to be tapered during his acute rehab stay. We recommend the following taper: Prednisone 40mg, PO, daily for 3 days, followed by 20mg, PO, daily for 3 days. EDISON/Obesity hypoventilation syndrome Although he has not had a formal sleep study, highly suspicious given subjective history of daytime sleepiness. He tolerated nasal CPAP well overnight while in the hospital. He would benefit from this both in rehab and as an outpatient, as it is likely contributing to acute hypoxic/hypercapnic respiratory failure. Please evaluate and treat with night time positive pressure ventilation as appropriate. ECHO (11/25/19) showed no evidence of R sided heart strain or elevated pulmonary pressure. Concern of COPD with h/o Tobacco abuse: Pt with significant smoking and chewing history (>50 pack year history). 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 He reports PFTs in 2012, although he is unsure of where he had them done or of the results. We recommend he repeat as outpatient given his worsening lung disease. Currently in non-contemplative stage of change as far as tobacco cessation goes. Acute kidney failure - Pt's baseline creatinine 1.2 (08/2019), but was as high as 2.82 during hospital stay. 1.11 on day of discharge. The suspected etiology is ATN. Nephrology was consulted but signed off when JEFRY resolved. Venous stasis ulcer of left leg: improving - Left lower leg recently debrided by wound care and found to be growing stenotrophomonas and coyrnebacterium. Antibiotics for PNA with adequate coverage for the above. Bilateral knee high compression stockings ordered. Hypertension: BP elevated throughout hospital stay. BP on day of discharge 148/73. Continue home dose Lisinopril 40mg; home amlodipine 5mg. Hyperlipidemia: - continue home atorvastatin 40mg, fenofibrate 145mg, and daily baby ASA GERD Continue famotidine 40mg daily. Pending Studies at Discharge: No Stand-Alone Forms: My [facility] Skilled Items Patient informed of condition?: Yes DNR: No Discharge Level of Care: Acute rehab Communicable Disease: No Discharge Prognosis: Stable Lines: None Urinary Catheter: No Medications and DC Order Prescriptions: New famotidine 40 mg Tablet 40 mg PO QAM 30 Days Qty: 30 RF: 0 prednisone 20 mg Tablet 40 mg PO BID 6 Days Qty: 1 RF: 0 Continued acetaminophen 650 mg Tablet Extended Release 1,300 mg PO UD PRN (Reason: Pain) RF: 0 lisinopril 40 mg tablet 40 mg PO DAILY RF: 0 furosemide 40 mg tablet 60 mg PO QAM RF: 0 atorvastatin 40 mg tablet 40 mg PO QAM RF: 0 metformin 500 mg tablet 500 mg PO QAM RF: 0 atenolol 25 mg tablet 25 mg PO QAM RF: 0 fenofibrate micronized 200 mg capsule 200 mg PO QAM RF: 0 amlodipine 5 mg Tablet 5 mg PO QAM RF: 0 aspirin [Aspir-81] 81 mg Tablet,Delayed Release (Dr/Ec) 81 mg PO QAM RF: 0 potassium gluconate 600 mg (99 mg) Tablet 600 mg PO QAM RF: 0 turmeric root extract 500 mg Capsule 500 mg PO QAM RF: 0 ascorbic acid (vitamin C) [Vitamin C] 1,000 mg Tablet 1,000 mg PO QAM RF: 0 multivitamin [Multiple Vitamins] Tablet 1 tab PO QAM RF: 0 cetirizine 10 mg Tablet 10 mg PO QAM RF: 0 Discontinued ranitidine HCl 150 mg Tablet 150 mg PO QAM RF: 0 Discharge Orders: Discharge Order (Routine); Ordered 12/06/19 Ordered By: Arabella Cobb Admission Data Admit Date/Time: 11/24/19 17:53 Attending Provider: Cristal Israel Admit Provider: Cris Otero Primary Care Provider: Ludwig Vargas Other Providers: Basil Dutton ; Aylin Pearce Other Interventions: Discharge Summary Assessment (RN) Last Done: 12/06/19 15:01 DC Date/Time DO NOT enter until pt leaves facility: 12/06/19 16:10 Supervising Physician Co-Signing Physician Notes Resident Physician Supervision Note: I independently interviewed and examined the patient and verified the park history and physical, reviewed labs and image studies, discussed the case with the resident Dr. Cobb and agree with the findings and care plan. Time spent in discharge 35 min Resident Activity Tracking Resident Involvement: Resident Care Provided Care Provided: Adult Hospital Medicine
== END 2019-12-06 16:10 | DRG 193 ==
LOC: ED 15:43 → 2S 17:53 → SUATTDRO 17:53 → 2S 18:55 → 1E 11-27 14:38 → 2S 11-29 12:12

== ENCOUNTER 2020-08-01 12:18 | Inpatient (IN) ==
[2020-08-01] MEDS ORDERED: DAPTOMYCIN CONSULT ACTIVE PRN (12:58)
[2020-08-01] MEDS ORDERED: PIPERACILL/TAZOBAC CONSULT ACTIVE PRN (12:58)
[2020-08-01] MEDS ORDERED: DAPTOmycin 400 MG in SYRINGE 0 ML IV ONE (12:58)
[2020-08-01] MEDS ORDERED: PIPERACILLIN/TAZOBACTAM 4.5 GM/120 ML BAG IV ONE (12:58)
--- NOTE | 2020-08-01 13:12 | XRay Report ---
LEFT TIBIA AND FIBULA 2 VIEWS CLINICAL HISTORY: Cellulitis. FINDINGS: AP and lateral views of the left tibia and fibula are obtained. No prior studies are availa ble for comparison at the time of dictation. The skeletal structures are osteopenic. No fracture is s een. There is no bony erosion or periostitis. Degenerative change is seen in the knee. The ankle join t is grossly maintained. Diffuse soft tissue edema is present around the left lower extremity. Minor us phleboliths are present within the anterior soft tissues. IMPRESSION: Diffuse soft tissue edema with no acute bony abnormality identified. Electronically signed by: Moody Castaneda M.D. 08/01/2020 1:10 PM
--- NOTE | 2020-08-01 13:14 | XRay Report ---
XR chest 1V portable HISTORY: 64 years-old Male SEPSIS acute sepsis COMPARISON: Chest CT 03/25/2020, chest radiograph 11/29/2019 TECHNIQUE: Portable AP view of the chest FINDINGS: Cardiac silhouette is mildly enlarged, unchanged. Chronic right hemidiaphragm elevation. Mild linear bibasilar densities suggest atelectasis. There is no pneumothorax, pleural effusion or overt pulmonar y edema. No airspace consolidation typical for pneumonia. Bones of the chest appear grossly intact. IMPRESSION: No acute process. ACT 112: Negative or not required by law. The above report was generated using voice recognition software. It may contain grammatical, syntax o r spelling errors. Electronically signed by: Arash Timmons M.D. 08/01/2020 1:13 PM
--- NOTE | 2020-08-01 13:20 | Emergency Department Note ---
Impression & Plan Cellulitis, Lower extremity edema, Venous stasis ulcer ED Provider Note NAME: SACHA CASILLAS AGE: 64 SEX: M ARRIVES VIA: Walk-In INFORMANT: Patient, ED PROVIDER(S): Andrea Nicole MD CHIEF COMPLAINT: Cellulitis, referred. PLAN: Disposition: Admit MEDICAL DECISION MAKING: The patient is a pleasant 64-year-old gentleman with a past medical history of CHF, COPD on home oxygen, diabetes, CAD, history of lower extremity edema with r ecent left lower leg cellulitis being managed at wound clinic having completed course of cefdinir and ciprofloxacin currently but was referred to emergency department for evaluation and IV antibiotics after there has been no improvement over the past several weeks. He denies any fevers, chills, body aches, cough, congestion, chest pain, new shortness of breath, diarrhea. Patient did have a surface wound culture performed at the end of June which would suggest sensitivity to his recent antibiotics however given he has no improvement we will broaden coverage at this time with Zosyn and daptomycin. He agrees with plan for admission. EKG without overt acute ischemia. Chest x-ray negative for acute process. Plain films of the left lower leg negative for osseous involvement. WBC 12, nonspecific. H/H and platelets within normal limits. Chemistry without acidosis. ESR and CRP are elevated at 30 and 2, respectively. Lactate 2.0. Magnesium 1.7 with repletion provided. Otherwise electrolytes and LFTs unremarkable. Case was discussed with Dr. Carcamo, [facility] hospitalist, who will evaluate the patient for admission. Triage Nursing notes reviewed and agree them. Prior medical records reviewed Vital Signs: reviewed and remarkable for no significant abnormalities Differential diagnosis: Cellulitis, abscess, MRSA infection, DVT, necrotizing fasciitis, dermatitis, drug eruption, allergic reaction, as well as other pathologies. ER treatment provided: See below. Diagnostics interpreted by me: ECG: Sinus rhythm with occasional PVCs, 77 bpm, no overt ST elevation or depression, QTC 430, QRS 96. Cardiac Monitoring: An order for continuous cardiac monitoring was placed and demonstrated sinus rhythm, 77 bpm, occasional PVCs. Laboratory studies: See below Imaging studies: XR chest 1V portable HISTORY: 64 years-old Male SEPSIS acute sepsis COMPARISON: Chest CT 03/25/2020, chest radiograph 11/29/2019 TECHNIQUE: Portable AP view of the chest FINDINGS: Cardiac silhouette is mildly enlarged, unchanged. Chronic right hemidiaphragm elevation. Mild linear bibasilar densities suggest atelectasis. There is no pneumothorax, pleural effusion or overt pulmonary edema. No airspace consolidation typical for pneumonia. Bones of the chest appear grossly intact. IMPRESSION: No acute process. LEFT TIBIA AND FIBULA 2 VIEWS CLINICAL HISTORY: Cellulitis. FINDINGS: AP and lateral views of the left tibia and fibula are obtained. No prior studies are available for comparison at the time of dictation. The skeletal structures are osteopenic. No fracture is seen. There is no bony erosion or periostitis. Degenerative change is seen in the knee. The ankle joint is grossly maintained. Diffuse soft tissue edema is present around the left lower extremity. Numerous phleboliths are present within the anterior soft tissues. IMPRESSION: Diffuse soft tissue edema with no acute bony abnormality identified. Consultation(s): Dr. Carcamo, [facility] hospitalist. HPI: The patient is a pleasant 64-year-old gentleman with a past medical history of CHF, COPD on home oxygen, diabetes, CAD left ear, history of lower extremity edema with recent left lower leg cellulitis being managed at wound clinic having completed course of cefdinir and ciprofloxacin currently but was referred to emergency department for evaluation and IV antibiotics after there has been no improvement over the past several weeks. He denies any fevers, chills, body aches, cough, congestion, chest pain, new shortness of breath, diarrhea. ROS: See above HPI for pertinent positives & negatives. A total of 10 systems reviewed and were otherwise negative. PAST MEDICAL HISTORY:See Below PAST SURGICAL HISTORY:See Below FAMILY HISTORY:See Below SOCIAL HISTORY:See Below HOME MEDICATIONS:See Below ALLERGIES:See Below VITALS:See Below PHYSICAL EXAMINATION: GENERAL: Awake, alert, chronically ill-appearing, in no distress HENT: Normocephalic, atraumatic. Oropharynx unremarkable. EYES: Normal conjunctiva. Sclera non-icteric. NECK: Supple. No nuchal rigidity. FROM. No JVD. RESPIRATORY: Clear to auscultation. CARDIAC: Regular rate, normal rhythm. Extremities warm and well perfused. Pulses equal. ABDOMEN: Soft, non-distended. No tenderness to palpation. No rebound or guarding. No masses. RECTAL: Deferred. MUSCULOSKELETAL: Chest examination reveals no tenderness. The back is sym metrical on inspection without obvious abnormality. There is no CVA tenderness to palpation. No joint edema. LOWER EXTREMITIES: Calves are equal size bilaterally and non-tender. BLE edema, 2+ on right and 3+ on left. Left lower leg with erythema warmth and tenderness. There is no crepitus. NEURO: Normal sensorium. No sensory or motor deficits noted. SKIN: No rash or jaundice noted. Andrea Nicole MD Past Med/Surg History Medical History Acute hypercapnic respiratory failure (~11/2019) Acute kidney failure (~11/2019) Arthritis Carotid artery stenosis 01/22/2020-50-69 percent stenosis within proximal left internal carotid artery, moderate stenosis within the bilateral external carotid arteries Cellulitis CHF (congestive heart failure) Chronic venous insufficiency Congestive heart failure Diabetes GERD without esophagitis HTN (hypertension) Hyperlipidemia Hypertension Obstructive sleep apnea Septic shock (~11/2019) [facility] Tobacco pipe smoker Smokes 1 pipe / week Venous stasis ulcer Venous ulcer of left leg Vitamin D deficiency Surgical History Hx of hand surgery Family History Aunt Colorectal cancer maternal aunt Mother Myocardial infarction Father Myocardial infarction Denies family history of Ovarian cancer Prostate cancer Breast cancer Social History Smoking Status: Former smoker Cigarettes Per Day: 1 to 2 a day in a month; Second Hand Exposure: No; Hx Alcohol Use: No Hx Substance Use: No Preferred Language: Yoruba Communication Ability: Effective Visual Impairment: No Limitations Hearing Ability: Normal Legal Administrator Required: No Beliefs That Will Affect Care: None marital status: Single Current Living Situation: Alone current occupational status: disabled Other Information That Helps Us Care for You: No Feels Safe at Home: Yes Safety Concerns: Feels Safe At This Time Childhood Exposure to Second-Hand Smoke: Yes caffeine: Yes during the past year weight has: remained stable Dental Care, Regularly: No Physical Activity Frequency: Does not Exercise Seatbelt Use: always Sunscreen Use: No Allergies Allergies Allergy/AdvReac Type Severity Reaction Status Date / Time No Known Drug Allergies Allergy Verified 08/01/20 14:23 Home Meds Home Medications Medication Instructions Recorded Confirmed ascorbic acid (vitamin C) [Vitamin 1,000 mg PO QAM 10/31/18 08/01/20 C] aspirin [Aspir-81] 81 mg PO QAM 10/31/18 08/01/20 cetirizine 10 mg PO QAM 10/31/18 08/01/20 potassium gluconate 600 mg PO QAM 10/31/18 08/01/20 turmeric root extract 500 mg PO QAM 10/31/18 08/01/20 acetaminophen 1,300 mg PO UD PRN 11/24/19 08/01/20 metformin 1,000 mg tablet 1,000 mg PO DAILY tab 06/06/20 08/01/20 lisinopril 40 mg PO QAM 08/01/20 08/01/20 Previous Rx's Medication Instructions Recorded atorvastatin 40 mg tablet 40 mg PO HS #90 tab 04/11/20 metoprolol tartrate 50 mg tablet 50 mg PO BID #60 tab 04/11/20 nitroglycerin 0.4 mg sublingual 0.4 mg SL Q5M PRN #30 tab 05/09/20 tablet furosemide 40 mg tablet 60 mg PO QAM #90 tab 06/24/20 amlodipine 10 mg tablet 10 mg PO HS #90 tab 07/17/20 ciprofloxacin HCl 500 mg tablet 500 mg PO q12h #28 tab 07/22/20 Results & Data (ED) Vital Signs Vital Signs - 24 hr 08/01/20 12:34 08/01/20 13:01 08/01/20 13:14 Temperature 36.8 C Temperature Source Oral Pulse Rate 82 Pulse Rate from SpO2 Sensor Respiratory Rate 20 20 Respiratory Effort / Characteristics Non-Labored Spontaneous Blood Pressure 119/69 Blood Pressure Mean 85 Pulse Oximetry 90 95 98 Oxygen Delivery Method Room Air Nasal Cannula Nasal Cannula Oxygen Flow Rate 2 2 Sepsis Recent Fever Within 48 Hours No Sepsis New/Unexplained Change in Mental Status N/A Sepsis Action Taken by Nursing No Action Required 08/01/20 13:21 08/01/20 13:30 08/01/20 13:45 Temperature Temperature Source Pulse Rate 77 77 79 Pulse Rate from SpO2 Sensor 78 78 80 Respiratory Rate 16 18 14 Respiratory Effort / Characteristics Blood Pressure Blood Pressure Mean Pulse Oximetry 97 97 97 Oxygen Delivery Method Nasal Cannula Nasal Cannula Nasal Cannula Oxygen Flow Rate 2 2 2 Sepsis Recent Fever Within 48 Hours Sepsis New/Unexplained Change in Mental Status Sepsis Action Taken by Nursing 08/01/20 14:00 08/01/20 14:15 08/01/20 14:17 Temperature Temperature Source Pulse Rate 74 71 71 Pulse Rate from SpO2 Sensor 74 72 71 Respiratory Rate 20 15 12 Respiratory Effort / Characteristics Blood Pressure 112/50 L Blood Pressure Mean 60 Pulse Oximetry 97 97 97 Oxygen Delivery Method Nasal Cannula Nasal Cannula Nasal Cannula Oxygen Flow Rate 2 2 2 Sepsis Recent Fever Within 48 Hours Sepsis New/Unexplained Change in Mental Status Sepsis Action Taken by Nursing 08/01/20 14:30 08/01/20 14:45 08/01/20 15:00 Temperature Temperature Source Pulse Rate 73 72 70 Pulse Rate from SpO2 Sensor 73 72 70 Respiratory Rate 18 15 Respiratory Effort / Characteristics Blood Pressure 99/51 L Blood Pressure Mean 60 Pulse Oximetry 96 97 97 Oxygen Delivery Method Nasal Cannula Room Air Room Air Oxygen Flow Rate 2 Sepsis Recent Fever Within 48 Hours Sepsis New/Unexplained Change in Mental Status Sepsis Action Taken by Nursing 08/01/20 15:01 08/01/20 15:15 08/01/20 15:30 Temperature Temperature Source Pulse Rate 68 68 68 Pulse Rate from SpO2 Sensor 69 69 68 Respiratory Rate 18 16 20 Respiratory Effort / Characteristics Blood Pressure 148/93 H Blood Pressure Mean 104 Pulse Oximetry 97 97 99 Oxygen Delivery Method Room Air Room Air Room Air Oxygen Flow Rate Sepsis Recent Fever Within 48 Hours Sepsis New/Unexplained Change in Mental Status Sepsis Action Taken by Nursing 08/01/20 15:31 Temperature Temperature Source Pulse Rate 66 Pulse Rate from SpO2 Sensor 68 Respiratory Rate 18 Respiratory Effort / Characteristics Blood Pressure 150/81 H Blood Pressure Mean 109 Pulse Oximetry 99 Oxygen Delivery Method Room Air Oxygen Flow Rate Sepsis Recent Fever Within 48 Hours Sepsis New/Unexplained Change in Mental Status Sepsis Action Taken by Nursing Laboratory Data Attestation: I reviewed the patient's lab results. Result diagrams: 08/01/20 13:06 08/01/20 14:02 Lab Results 08/01/20 08/01/20 08/01/20 Range/Units 13:06 13:06 13:06 WBC 12.05 H (4.8-10.8) K/uL RBC 5.00 (4.7-6.1) M/uL Hgb 14.8 (14.0-18.0) g/dL Hct 44.4 (42-52) % MCV 88.8 (80-100) fL MCH 29.6 (25-34) pg MCHC 33.3 (32-36) g/dL RDW Std Deviation 49.9 H (36.4-46.3) fL RDW Coeff of Bonifacio 15.4 H (11.5-14.5) % Plt Count 246 (130-400) K/uL MPV 9.0 (7.4-10.4) fL Immature Gran % (Auto) 0.2 % Neut % (Auto) 70.8 % Lymph % (Auto) 13.2 % Cla[place]orne % (Auto) 10.8 % Eos % (Auto) 4.8 % Baso % (Auto) 0.2 % Neut # (Auto) 8.53 H (1.4-6.5) K/uL Lymph # (Auto) 1.59 (1.2-3.4) K/uL [place] # (Auto) 1.30 H (0.11-0.59) K/uL Eos # (Auto) 0.58 H (0-0.5) K/uL Baso # (Auto) 0.02 (0-0.2) K/uL Immature Gran # (Auto) 0.03 H (0.00-0.02) K/uL ESR 30 H (0-14) mm/hr PT (9.0-12.0) Seconds INR (0.9-1.1) APTT (21.0-31.0) Seconds PTT Ratio Sodium 144 (136-145) mmol/L Potassium (3.5-5.1) mmol/L Chloride 106 (98-107) mmol/L Carbon Dioxide 31 (21-32) mmol/L Anion Gap 7.0 (3-11) BUN 21 H (7-18) mg/dl Creatinine 0.89 (0.6-1.4) mg/dl Est Cr Clr Drug Dosing 120.9 ml/min Est GFR ( Amer) 104.7 Est GFR (Non-Af Amer) 90.4 BUN/Creatinine Ratio 23.5 H (10-20) Glucose 118 H (70-99) mg/dl Lactate (0.4-2.0) mmol/L Calcium 9.3 (8.5-10.1) mg/dl Magnesium (1.8-2.4) mg/dl Total Bilirubin 0.4 (0.2-1) mg/dl AST (15-37) U/L ALT 35 (12-78) U/L Alkaline Phosphatase 89 (45-117) U/L C-Reactive Protein 2.03 H (0-0.29) mg/dl Total Protein 7.6 (6.4-8.2) gm/dl Albumin 3.3 L (3.4-5.0) gm/dl Globulin 4.3 H (2.5-4.0) gm/dl Albumin/Globulin Ratio 0.8 L (0.9-2) 08/01/20 08/01/20 08/01/20 Range/Units 13:06 13:06 14:02 WBC (4.8-10.8) K/uL RBC (4.7-6.1) M/uL Hgb (14.0-18.0) g/dL Hct (42-52) % MCV (80-100) fL MCH (25-34) pg MCHC (32-36) g/dL RDW Std Deviation (36.4-46.3) fL RDW Coeff of Bonifacio (11.5-14.5) % Plt Count (130-400) K/uL MPV (7.4-10.4) fL Immature Gran % (Auto) % Neut % (Auto) % Lymph % (Auto) % [place]orne % (Auto) % Eos % (Auto) % Baso % (Auto) % Neut # (Auto) (1.4-6.5) K/uL Lymph # (Auto) (1.2-3.4) K/uL [place] # (Auto) (0.11-0.59) K/uL Eos # (Auto) (0-0.5) K/uL Baso # (Auto) (0-0.2) K/uL Immature Gran # (Auto) (0.00-0.02) K/uL ESR (0-14) mm/hr PT 10.6 (9.0-12.0) Seconds INR 1.0 (0.9-1.1) APTT 28.6 (21.0-31.0) Seconds PTT Ratio 1.0 Sodium (136-145) mmol/L Potassium 3.6 (3.5-5.1) mmol/L Chloride (98-107) mmol/L Carbon Dioxide (21-32) mmol/L Anion Gap (3-11) BUN (7-18) mg/dl Creatinine (0.6-1.4) mg/dl Est Cr Clr Drug Dosing ml/min Est GFR ( Amer) Est GFR (Non-Af Amer) BUN/Creatinine Ratio (10-20) Glucose (70-99) mg/dl Lactate 2.0 (0.4-2.0) mmol/L Calcium (8.5-10.1) mg/dl Magnesium 1.7 L (1.8-2.4) mg/dl Total Bilirubin (0.2-1) mg/dl AST 22 (15-37) U/L ALT (12-78) U/L Alkaline Phosphatase (45-117) U/L C-Reactive Protein (0-0.29) mg/dl Total Protein (6.4-8.2) gm/dl Albumin (3.4-5.0) gm/dl Globulin (2.5-4.0) gm/dl Albumin/Globulin Ratio (0.9-2) Administered Medications Amlodipine Besylate (Amlodipine Besylate 5 Mg Tab) 10 mg PO HS ROSETTE Stop: 08/31/20 20:59 Last Admin: 08/01/20 20:54 Dose: 10 mg Documented by: [id number] Atorvastatin Calcium (Atorvastatin 40 Mg Tab) 40 mg PO HS ROSETTE Stop: 08/31/20 20:59 Last Admin: 08/01/20 20:54 Dose: 40 mg Documented by: [id number] Piperacillin Sod/Tazobactam (Sod 4.5 gm/ Dextrose) 120 mls @ 30 mls/hr IV Q8H ROSETTE; Protocol Stop: 08/08/20 17:59 Last Infusion: 08/01/20 23:40 Dose: 0 mls/hr Documented by: [id number] Admin: 08/01/20 19:10 Dose: 30 mls/hr Documented by: [id number] Insulin Aspart (Insulin Aspart 100 Units/Ml 3 Ml Pen) 0 units SC ACHS ROSETTE; Protocol Stop: 08/31/20 22:29 Last Admin: 08/01/20 22:34 Dose: Not Given Documented by: [id number] Cosigned by: [id number] Metoprolol Tartrate (Metoprolol Tartrate 50 Mg Tab) 50 mg PO BID ROSETTE Stop: 08/31/20 20:59 Last Admin: 08/01/20 20:53 Dose: 50 mg Documented by: [id number] Discontinued Medications Acetaminophen (Acetaminophen 500 Mg Tab) Confirm Administered Dose 1,000 mg .YANELY MAXWELLK-MED ONE Stop: 08/01/20 13:31 Last Admin: 08/01/20 13:32 Dose: 1,000 mg Documented by: [id number] Daptomycin 400 mg/ Syringe 8 mls @ 4 mls/min IV NOW ONE; Protocol Stop: 08/01/20 12:59 Last Admin: 08/01/20 13:32 Dose: 4 mls/min Documented by: [id number] Piperacillin Sod/Tazobactam Sod (Zosyn) 4.5 gm in 120 mls @ 240 mls/hr IV NOW ONE Stop: 08/01/20 13:27 Last Infusion: 08/01/20 14:02 Dose: 0 mls/hr Documented by: [id number] Admin: 08/01/20 13:32 Dose: 240 mls/hr Documented by: [id number] Magnesium Oxide (Magnesium Oxide 400 Mg Tab) 400 mg PO NOW STA Stop: 08/01/20 14:46 Last Admin: 08/01/20 14:56 Dose: 400 mg Documented by: [id number] Blood Pressure Blood Pressure Findings: Elevated blood pressure Blood Pressure Disposition: further management by hospitalist Discharge Plan Visit Data Chief Complaint: Infection Stated Complaint: SENT BY WOUND,NEEDS LAB,ANTIBIOTIC ED Provider: Andrea Nicole Discharge Problem: Cellulitis, Lower extremity edema, Venous stasis ulcer Patient Disposition: Admitted As Inpatient Discharge Instructions Interventions: ED Discharge Assessment Last Done: 08/01/20 16:49
[2020-08-01] MEDS ORDERED: ACETAMINOPHEN 500 MG TAB ONE (13:30)
[2020-08-01 13:31] LABS: Basophils # (auto) 0.02 K/uL (0-0.2); Basophils % (auto) 0.2 %; Eosinophils # (auto) 0.58 K/uL (0-0.5); Eosinophils % (auto) 4.8 %; Hematocrit (blood only) 44.4 % (42-52); Hemoglobin 14.8 g/dL (14.0-18.0); Immature Granulocytes # (auto) 0.03 K/uL (0.00-0.02); Immature Granulocytes % (auto) 0.2 %; Lymphocytes # (auto) 1.59 K/uL (1.2-3.4); Lymphocytes % (auto) 13.2 %; Mean Corpuscular Hemoglobin 29.6 pg (25-34); Mean Corpuscular Hgb Conc 33.3 g/dL (32-36); Mean Corpuscular Volume 88.8 fL (80-100); Monocytes % (auto) 10.8 %; Neutrophils # (auto) 8.53 K/uL (1.4-6.5); Neutrophils % (auto) 70.8 %; Platelet Count 246 K/uL (130-400); RDW Coefficient of Variation 15.4 % (11.5-14.5); RDW Standard Deviation 49.9 fL (36.4-46.3); White Blood Count 12.05 K/uL (4.8-10.8)
[2020-08-01 13:46] LABS: Partial Thromboplastin Time 28.6 Seconds (21.0-31.0); Prothrombin Time 10.6 Seconds (9.0-12.0)
[2020-08-01 13:51] LABS: Albumin Globulin Ratio 0.8 (0.9-2); Albumin Level 3.3 gm/dl (3.4-5.0); BUN Creatinine Ratio 23.5 (10-20); Bilirubin,Total 0.4 mg/dl (0.2-1); C Reactive Protein 2.03 mg/dl (0-0.29); Calcium 9.3 mg/dl (8.5-10.1); Creatinine Clr Calc Pharmacy 120.9 ml/min; Est GFR (African American) 104.7; Est GFR (Non-African American) 90.4; Globulin 4.3 gm/dl (2.5-4.0); Total Protein 7.6 gm/dl (6.4-8.2)
[2020-08-01 14:27] LABS: Potassium 3.6 mmol/L (3.5-5.1)
[2020-08-01 14:32] LABS: Magnesium 1.7 mg/dl (1.8-2.4)
[2020-08-01] MEDS ORDERED: MAGNESIUM OXIDE 400 MG TAB PO STA (14:45)
[2020-08-01] MEDS ORDERED: ONDANSETRON INJ 2 MG/ML 2 ML VIAL IV PRN (15:45)
[2020-08-01] MEDS ORDERED: POLYETHYLENE (MIRALAX) 17 GM PACK PO PRN (15:45)
[2020-08-01] MEDS ORDERED: NITROGLYCERIN SL 0.4 MG/TAB TAB SL PRN (15:49)
--- NOTE | 2020-08-01 19:06 | Electrocardiogram Report ---
Test Reason : Blood Pressure : / mmHG Vent. Rate : 077 BPM Atrial Rate : 077 BPM P-R Int : 174 ms QRS Dur : 096 ms QT Int : 380 ms P-R-T Axes : 044 070 033 degrees QTc Int : 430 ms Poor data quality, interpretation may be adversely affected Sinus rhythm with occasional Premature ventricular complexes Otherwise normal ECG When compared with ECG of 25-NOV-2019 06:59, Premature ventricular complexes are now Present Left posterior fascicular block is no longer Present ST no longer depressed in Anterior leads T wave inversion no longer evident in Inferior leads T wave inversion no longer evident in Anterolateral leads QT has shortened Confirmed by Oscar Fried ([id number] on 08/01/2020 7:05:43 PM Referred By: Kym Malloy Confirmed By:Roger Fried
[2020-08-01] MEDS: PIPERACILLIN/TAZOBACTAM 4.5 GM in DEXTROSE 5% 100 ML IV SCH (19:10)
[2020-08-01] MEDS: METOPROLOL TARTRATE 50 MG TAB PO SCH (20:53)
[2020-08-01] MEDS: ATORVASTATIN 40 MG TAB PO SCH (20:54)
[2020-08-01] MEDS: AMLODIPINE BESYLATE 5 MG TAB PO SCH (20:54)
[2020-08-01] MEDS ORDERED: PHARMACY GLYCEMIC MGMT CONSULT PRN (22:19)
[2020-08-01] MEDS ORDERED: GLUCAGON FOR INJ 1 MG VIAL IM PRN (22:30)
[2020-08-01] MEDS ORDERED: CARBOHYDRATES FOR HYPOGLYCEMIA PO PRN (22:30)
[2020-08-01] MEDS ORDERED: GLUCOSE 40% GEL 15 GM TUBE PO PRN (22:30)
[2020-08-01] MEDS ORDERED: DEXTROSE 50% 50 ML SYRINGE IV PRN (22:30)
[2020-08-01] MEDS ORDERED: GLUCOSE 10 TABS/TUBE PO PRN (22:30)
[2020-08-01] MEDS: INSULIN ASPART 100 UNITS/ML 3 ML PEN SC SCH (22:34)
[2020-08-02] MEDS: ACETAMINOPHEN 325 MG TAB PO PRN ×4 (00:37→22:56)
[2020-08-02] MEDS: PIPERACILLIN/TAZOBACTAM 4.5 GM in DEXTROSE 5% 100 ML IV SCH ×3 (02:43→18:22)
--- NOTE | 2020-08-02 06:27 | History & Physical Report ---
Date of Service August 01, 2020 Assessment & Plan (1) Cellulitis: Patient will be admitted for above problem of left lower extremity cellulitis Failed outpatient ABX. Will place on dapto and zosyn for now. may consider consult with wound care provider (2) Lower extremity edema: chronic, will resume home meds (3) Carotid artery stenosis: On aspirin at home. stable (4) Obstructive sleep apnea: Wears oxygen at home. will need repeat sleep study to see if patient repeats CPAP at home. (5) Tobacco pipe smoker: Patient smokes about 1 pipe a week. Denies need for nictotine patch. (6) Diabetes: consult glycemic control last A1C : 8.4 back in Dec (7) Hypertension: BP appears relatively controlled, will resume home meds (8) Chronic venous insufficiency: stable. dvt: heparin Admission and Anticipated Discharge Date Admission Date: August 01, 2020 History of Present Illness Chief Complaint: left leg cellulitis Primary Care Provider: ABHAY Jennings This is a pleasant 64-year-old gentleman known to our service with past medical history of CHF, COPD on home oxygen, diabetes, CAD, history of lower extremity edema with recent left lower leg cellulitis. He was sent to the ER after being seen by the wound care clinic today for failed outpatient management of his cellulitis. He was taking cefdinir and ciprofloxacin with no significant improvement ROS: He denies any fevers, chills, N/V, chest pain, body aches, cough, congestion, chest pain, new shortness of breath, diarrhea, dizziness, change of vision, change of hearing. Allergies Allergy/AdvReac Type Severity Reaction Status Date / Time No Known Drug Allergies Allergy Verified 08/01/20 14:23 Home Medications Home Medications Medication Instructions Recorded Confirmed Type ascorbic acid (vitamin C) [Vitamin 1,000 mg PO QAM 10/31/18 08/01/20 History C] aspirin [Aspir-81] 81 mg PO QAM 10/31/18 08/01/20 History cetirizine 10 mg PO QAM 10/31/18 08/01/20 History potassium gluconate 600 mg PO QAM 10/31/18 08/01/20 History turmeric root extract 500 mg PO QAM 10/31/18 08/01/20 History acetaminophen 1,300 mg PO UD PRN 11/24/19 08/01/20 History atorvastatin 40 mg tablet 40 mg PO HS #90 tab 04/11/20 08/01/20 Rx metoprolol tartrate 50 mg tablet 50 mg PO BID #60 tab 04/11/20 08/01/20 Rx nitroglycerin 0.4 mg sublingual 0.4 mg SL Q5M PRN #30 tab 05/09/20 08/01/20 Rx tablet metformin 1,000 mg tablet 1,000 mg PO DAILY tab 06/06/20 08/01/20 History furosemide 40 mg tablet 60 mg PO QAM #90 tab 06/24/20 08/01/20 Rx amlodipine 10 mg tablet 10 mg PO HS #90 tab 07/17/20 08/01/20 Rx ciprofloxacin HCl 500 mg tablet 500 mg PO q12h #28 tab 07/22/20 08/01/20 Rx lisinopril 40 mg PO QAM 08/01/20 08/01/20 History Past Med/Surg History Medical History Acute hypercapnic respiratory failure (~11/2019) Acute kidney failure (~11/2019) Arthritis Carotid artery stenosis 01/22/2020-50-69 percent stenosis within proximal left internal carotid artery, moderate stenosis within the bilateral external carotid arteries Cellulitis CHF (congestive heart failure) Chronic venous insufficiency Congestive heart failure Diabetes GERD without esophagitis HTN (hypertension) Hyperlipidemia Hypertension Obstructive sleep apnea Septic shock (~11/2019) [facility] Tobacco pipe smoker Smokes 1 pipe / week Venous stasis ulcer Venous ulcer of left leg Vitamin D deficiency Surgical History Hx of hand surgery Family History Aunt Colorectal cancer maternal aunt Mother Myocardial infarction Father Myocardial infarction Denies family history of Ovarian cancer Prostate cancer Breast cancer Social History Smoking Status: Former smoker Cigarettes Per Day: 1 to 2 a day in a month; Second Hand Exposure: No; Hx Alcohol Use: No Hx Substance Use: No Preferred Language: [place]guill[place] Communication Ability: Effective Visual Impairment: No Limitations Hearing Ability: Normal Physical Education Department Chair Required: No Beliefs That Will Affect Care: None marital status: Single Current Living Situation: Alone current occupational status: disabled Other Information That Helps Us Care for You: No Feels Safe at Home: Yes Safety Concerns: Feels Safe At This Time Childhood Exposure to Second-Hand Smoke: Yes caffeine: Yes during the past year weight has: remained stable Dental Care, Regularly: No Physical Activity Frequency: Does not Exercise Seatbelt Use: always Sunscreen Use: No Review of Systems Review of Systems: All systems reviewed & are unremarkable except as noted in HPI & below Physical Exam Physical Exam: General: Obese patient resting comfortably, non-toxic in appearance, AA&O x 4, Skin: warm, dry, no rashes, wound on left lower extremity with dressing and erythema HEENT: NC/AT, PERRL, EOMI, anicteric sclera, conjunctiva without injection, external ear normal to inspection and nontender, nares patent, moist mucus membranes, dentition intact, no oropharyngeal lesions, neck supple, trachea midline, no LAD, no thyromegaly, evaluation of JVD limited secondary to body habitus Heart: +S1/S2, regular, no m/r/g Lungs: equal air entry bilaterally, + rales in bilateral bases, no rhonchi/wheezes Abd: Hypoactive bowel sounds, soft, NT, distended and tympanic to percussion, no masses/organomegaly/ascites Ext: warm, 2+ pulses in UE/LE bilaterally, wound on left anterior monge with dressing in place. No crepitus/bulla/streaking. 1 + pitting edema of left lower extremity, 1+ pitting edema of right lower extremity Neuro: nonfocal, patient AA&O x 4, speech intact, no facial droop, moving all extremities on command with equal strength 5/5 Results & Data Results & Data ([facility]) Vital Signs (Past 12 Hours) Vital Signs Temp Pulse Resp BP Pulse Ox 08/02/20 03:13 36.9 C 80 19 128/68 95 08/01/20 23:33 37.1 C 83 21 167/90 H 95 PG Care Time/CCT Total # of Minutes Spent Total Time Spent with Patient: Total time spent is greater than 50% in coordination of care (as documented) at patient's floor/unit and/or counseling patient: Coding Level of Care Code 18296 Initial Inpt Care Lvl 3 Diagnoses Cellulitis L03.90 Lower extremity edema R60.0 Carotid artery stenosis I65.29 Obstructive sleep apnea G47.33 Tobacco pipe smoker F17.290 Diabetes E11.9 Diabetes mellitus type: type 2 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
[2020-08-02] MEDS: ASPIRIN 81 MG ECTAB PO SCH (07:46)
[2020-08-02] MEDS: lisinopriL 40 MG TAB PO SCH (07:46)
[2020-08-02] MEDS: METOPROLOL TARTRATE 50 MG TAB PO SCH ×2 (07:46→20:15)
[2020-08-02] MEDS: CETIRIZINE HCL 10 MG TABLET PO SCH (07:46)
[2020-08-02] MEDS: ASCORBIC ACID 500 MG TAB PO SCH (07:47)
--- NOTE | 2020-08-02 08:01 | Hospitalist Progress Note ---
Date of Service August 02, 2020 Assessment & Plan (1) Cellulitis: left lower extremity cellulitis Failed outpatient ABX now on dapto and zosyn for now. Likely has component of chronic venous stasis. His cardiac catheterization from March 2020 only showed mild primary hypertension mostly related to his morbid obesity and perhaps obesity hypoventilation syndrome (2) Lower extremity edema: chronic, will resume lasix resume to convert to intra-venous form to try to improve output reduce leg swelling (3) Obstructive sleep apnea: Wears oxygen at home. Consider repeat sleep study to see if patient rep eats CPAP at home. Morbidly obese, BMI 48.6 kg/m*m (4) Chronic diastolic heart failure: Patient had heart catheterization in March 2020 which showed three-vessel coronary disease and was referred for evaluation for CABG however the patient has significant comorbidities most importantly COPD with an FEV1 around 59% predicted and dependency on oxygen. His morbid obesity and chronic venous stasis also makes vein harvesting a challenge in his last was seen in cardiology office May 30, 2020 at which time they are deferring to pulmonary medicine whether he should have bypass. Subsequently I do not have a recent ejection fraction to determine if his lower extremity edema is from now from systolic and diastolic heart failure or just from his diastolic heart failure. Go and escalate treatment of his diastolic heart failure at this time until echocardiogram returns to the confirm or refute additional systolic dysfunction (5) Carotid artery stenosis: aspirin and atorvastatin (6) Tobacco pipe smoker: Patient smokes about 1 pipe a week. Denies need for nictotine patch. (7) Diabetes: typically on metfrormin, admitting provider did consult glycemic control last A1C : 8.4 back in Dec (8) Hypertension: lisinopril 40, amlodipine 10 (9) Chronic venous insufficiency: stable. dvt: heparin (10) COPD (chronic obstructive pulmonary disease): chronic respiratory failure with hypoxia Admission and Anticipated Discharge Date Admission Date: August 01, 2020 Subjective We undressed the patient's leg in the room he says looks better than he did at the wound clinic but not as good as it did at home. Not relate an inciting event while it worsens substantially while on oral antibiotics. Patient is otherwise chronically on oxygen Review of Systems Review of Systems: Mild distress and fatigue no headache, blurry or double vision no speech or swallowing issues no chest pain, pressure or palpitations Dyspnea with exertion and at rest no abdominal pain, nausea or vomiting, diarrhea or constipation no dysuria, hematuria or frequency no focal joint pain significant bilateral lower extremity swelling left greater than right no back pain, CVA tenderness or radicular pain no bruising, bleeding or rashes no focal signs of weakness or numbness or altered sensation no complaints or anxiety or depression. Physical Exam Physical Exam: The patient appeared well nourished and normally developed. Vital signs as documented. Head exam is normocephalic atraumatic no scleral icterus Neck is without JVD, thyromegaly, or carotid bruits. Lungs are diminished at the bases with poor air movement Cardiac exam, Rhythm is regular.. Systolic ejection murmur is seen Abdominal exam reveals normal bowel sounds, soft non tender, no masses Extremities are edematous difficult to find pulses. The left leg has a large area of discolored skin almost like a water blister type on the back of his leg this is approximately 8 x 10 cm. There is erythema but no discrete line of demarcation seen Neurologic exam is alert and oriented, no focal loss of strength or sensation Psychologically is without concerns for anxiety or depression. Results & Data Results & Data ([facility]) Vital Signs (Past 12 Hours) Vital Signs Temp Pulse Resp BP Pulse Ox 08/02/20 07:17 98.6 F 93 H 18 143/81 H 96 08/02/20 03:13 98.4 F 80 19 128/68 95 08/01/20 23:33 98.8 F 83 21 167/90 H 95 PG Care Time/CCT Total # of Minutes Spent Total Time Spent with Patient: Total time spent is greater than 50% in coordination of care (as documented) at patient's floor/unit and/or counseling patient: Coding Level of Care Code 17845 Subseq Hosp Care Lvl 3 Diagnoses Cellulitis L03.90 Lower extremity edema R60.0 Obstructive sleep apnea G47.33 Chronic diastolic heart failure I50.32 Carotid artery stenosis I65.29 Tobacco pipe smoker F17.290 Diabetes E11.9 Diabetes mellitus complication status: without complication Diabetes mellitus care home insulin use: without care home use Diabetes mellitus type: type 2 Hypertension I10 Hypertension type: essential hypertension Chronic venous insufficiency I87.2 COPD (chronic obstructive pulmonary disease) J44.9 (1) Diabetes Diabetes mellitus complication status: without complication Diabetes mellitus intermediate designer insulin use: without intermediate designer use Diabetes mellitus type: type 2 Qualified Code(s): E11.9 - Type 2 diabetes mellitus without complications (2) Hypertension Hypertension type: essential hypertension Qualified Code(s): I10 - Essential (primary) hypertension
[2020-08-02] MEDS: INSULIN GLARGINE SOLOSTAR 100 UNITS/ML 3 ML PEN SC SCH (08:14)
[2020-08-02] MEDS: INSULIN ASPART 100 UNITS/ML 3 ML PEN SC SCH ×4 (08:14→20:16)
[2020-08-02] MEDS ORDERED: FUROSEMIDE 20 MG TAB PO SCH (09:00)
[2020-08-02] MEDS ORDERED: NON-FORMULARY MEDICATION (Potassium Gluconate 600 MG) PO SCH (09:00)
[2020-08-02 09:18] LABS: Estimated Average Glucose 174 mg/dl; Hemoglobin A1C 7.7 % (4.5-5.6)
--- NOTE | 2020-08-02 11:42 | Pharmacy Report ---
Glycemic Control Consultation - Date of Service August 02, 2020 - Scope Scope: Glycemic Pharmacist consulted for glycemic control and to write orders per [facility] inpatient glycemic control protocol. - Objective Weight: 149.4 kg [place]kat[place]ecks BSG (last 24hrs): 08/01/20 08/01/20 08/01/20 13:06 17:45 22:32 Glucose 118 H POC Glucose 111 H 134 H 08/02/20 07:27 Glucose POC Glucose 138 H Laboratory Data (last 24hrs): 08/01/20 08/01/20 13:06 14:02 Potassium 3.6 Carbon Dioxide 31 Anion Gap 7.0 Creatinine 0.89 Est Cr Clr Drug Dosing 120.9 HbA1c: Hemoglobin A1c 7.7 % (4.5-5.6) H 08/02/20 07:18 - Recent Pertinent Medications Outpatient Anti-diabetic Regimen: * Metformin 1,000mg PO daily Risk Factors for Insulin Resistance: * Infection * Diet - Assessment & Plan Assessment & Plan: ASSESSMENT: * 64yo T2DM male known to pharmacy from previous admissions/glycemic consults - most recently 11/2019 * Near-adequate outpatient control with metformin monotherapy per A1c. Could consider increasing dose of metformin to BID to achieve goal A1c of <7% * Oral agents are not recommended for inpatient use d/t drug interactions, changing PO intake, and difficulty titrating for acute hyper/hypoglycemia. ADA recommends re-initiating outpatient oral agents 1-2 days prior to discharge if/when appropriate if they were held on admission. * Will hold oral agents for admission and utilize SQ basal bolus insulin regimen which is the recommended regimen for inpatient glycemic control. * Will initiate low stress weight based insulin dosing for insulin rafal patient and titrate based on BSG trends. PLAN FOR INPATIENT GLYCEMIC CONTROL: * Holding outpatient oral diabetes medications * Basal insulin * Lantus 10 units SQ daily * Bolus insulin * NovoLog per scale ACHS or Q6hrs while NPO * Goal Range: Low 110 mg/dL - High 140 mg/dL * Correction Factor: 25 mg/dL/unit * Nutritional / Prandial insulin per carb ratio of 1 unit per 8 grams CHO consumed * Please note that the plan above was derived based on current level of insulin resistance and hospital stress. These recommendations are appropriate for inpatient admission only. Plan of care upon discharge will need to be reassessed to avoid potential outpatient hypo/hyperglycemia. Thank you.
[2020-08-02] MEDS: HEPARIN SOD 5,000 UNIT/0.5 ML VIAL SQ SCH ×2 (14:15→20:17)
[2020-08-02] MEDS: DAPTOmycin 400 MG in SYRINGE 0 ML IV SCH (14:15)
[2020-08-02] MEDS: FUROSEMIDE 40 MG in SYRINGE 0 ML IV SCH (16:40)
[2020-08-02] MEDS: AMLODIPINE BESYLATE 5 MG TAB PO SCH (20:15)
[2020-08-02] MEDS: ATORVASTATIN 40 MG TAB PO SCH (20:15)
[2020-08-03] MEDS: PIPERACILLIN/TAZOBACTAM 4.5 GM in DEXTROSE 5% 100 ML IV SCH ×3 (01:48→18:00)
[2020-08-03] MEDS: HEPARIN SOD 5,000 UNIT/0.5 ML VIAL SQ SCH ×3 (05:58→20:36)
[2020-08-03] MEDS: INSULIN ASPART 100 UNITS/ML 3 ML PEN SC SCH ×4 (08:01→20:37)
[2020-08-03] MEDS: INSULIN GLARGINE SOLOSTAR 100 UNITS/ML 3 ML PEN SC SCH (08:01)
[2020-08-03] MEDS: METOPROLOL TARTRATE 50 MG TAB PO SCH ×2 (08:02→20:35)
[2020-08-03] MEDS: ASCORBIC ACID 500 MG TAB PO SCH (08:02)
[2020-08-03] MEDS: FUROSEMIDE 40 MG in SYRINGE 0 ML IV SCH ×2 (08:02→18:00)
[2020-08-03] MEDS: lisinopriL 40 MG TAB PO SCH (08:02)
[2020-08-03] MEDS: CETIRIZINE HCL 10 MG TABLET PO SCH (08:02)
[2020-08-03] MEDS: ASPIRIN 81 MG ECTAB PO SCH (08:02)
[2020-08-03 08:06] LABS: BUN Creatinine Ratio 16.5 (10-20); Est GFR (African American) 105.7; Est GFR (Non-African American) 91.2; Magnesium 2.1 mg/dl (1.8-2.4); Potassium 3.5 mmol/L (3.5-5.1)
[2020-08-03] MEDS: ACETAMINOPHEN 325 MG TAB PO PRN ×3 (10:31→20:34)
[2020-08-03] MEDS: DAPTOmycin 400 MG in SYRINGE 0 ML IV SCH (14:33)
--- NOTE | 2020-08-03 17:41 | Hospitalist Progress Note ---
Date of Service August 03, 2020 Assessment & Plan (1) Cellulitis: left lower extremity cellulitis Failed outpatient ABX now on dapto and zosyn for now. Likely has component of chronic venous stasis. His cardiac catheterization from March 2020 only showed mild primary hypertension mostly related to his morbid obesity and perhaps obesity hypoventilation syndrome (2) Lower extremity edema: chronic, will continue intravenous Lasix at this time. Repeat echocardiogram shows diastolic dysfunction or chronic diastolic heart failure no comment on pulmonary hypertension at this point but he may well have some given his chronic hypoxic respiratory failure (3) Obstructive sleep apnea: Wears oxygen at home. Consider repeat sleep study to see if patient repeats CPAP at home. Morbidly obese, BMI 48.6 kg/m*m Patient has chronic respiratory failure with hypoxia likely underlying COPD perhaps environmental exposure to silica and asbestos will continue to follow Dr. Crowley (4) Chronic diastolic heart failure: Patient had heart catheterization in March 2020 which showed three-vessel coronary disease and was referred for evaluation for CABG however the patient h as significant comorbidities most importantly COPD with an FEV1 around 59% predicted and dependency on oxygen. His morbid obesity and chronic venous stasis also makes vein harvesting a challenge in his last was seen in cardiology office May 30, 2020 at which time they are deferring to pulmonary medicine whether he should have bypass. Echocardiogram shows chronic diastolic heart failure. continue intravenous Lasix therapy will likely refer to outpatient cardiology for reassessment of need for revascularization (5) Carotid artery stenosis: aspirin and atorvastatin (6) Tobacco pipe smoker: Patient smokes about 1 pipe a week. Denies need for nictotine patch. (7) Diabetes: typically on metfrormin, admitting provider did consult glycemic control last A1C : 8.4 back in Dec (8) Hypertension: lisinopril 40, amlodipine 10 (9) Chronic venous insufficiency: stable. dvt: heparin (10) COPD (chronic obstructive pulmonary disease): chronic respiratory failure with hypoxia Admission and Anticipated Discharge Date Admission Date: August 01, 2020 Subjective Patient is had some improvement of his leg discomfort and erythema still is very swollen he feels is about 50% back to its prehospital condition. He continues with a chest pain he is dyspnea on exertion he is on chronic oxygen for which he has been on since he had pneumonia a few months ago. He likely has underlying COPD but also has had environmental exposure to both silica and asbestos in various employment opportunities he has had over his lifetime Review of Systems Review of Systems: Mild distress and fatigue no headache, blurry or double vision no speech or swallowing issues no chest pain, pressure or palpitations Continues with dyspnea with exertion and at rest no abdominal pain, nausea or vomiting, diarrhea or constipation no dysuria, hematuria or frequency no focal joint pain significant bilateral lower extremity swelling left greater than right improvement admission but still not at his baseline no back pain, CVA tenderness or radicular pain Erythema and some skin changes to his left lower extremity no focal signs of weakness or numbness or altered sensation no complaints or anxiety or depression. Physical Exam Physical Exam: The patient appeared well nourished and normally developed. Vital signs as documented. Head exam is normocephalic atraumatic no scleral icterus Neck is without JVD, thyromegaly, or carotid bruits. Lungs are diminished at the bases with poor air movement no focal air loss or wheezes Cardiac exam, Rhythm is regular.. Systolic ejection murmur is heard Abdominal exam reveals normal bowel sounds, soft non tender, no masses Extremities are edematous difficult to find pulses. The left leg has persistent erythema swelling and skin discoloration improved from yesterday n Neurologic exam is alert and oriented, no focal loss of strength or sensation Psychologically is without concerns for anxiety or depression. Results & Data Results & Data ([facility]) Vital Signs (Past 12 Hours) Vital Signs Temp Pulse Resp BP Pulse Ox 08/03/20 14:56 97.5 F L 71 20 126/73 96 08/03/20 07:00 97.5 F L 76 20 148/74 H 94 PG Care Time/CCT Total # of Minutes Spent Total Time Spent with Patient: Total time spent is greater than 50% in coordination of care (as documented) at patient's floor/unit and/or counseling patient: Coding Level of Care Code 07857 Subseq Hosp Care Lvl 3 Diagnoses Cellulitis L03.90 Lower extremity edema R60.0 Obstructive sleep apnea G47.33 Chronic diastolic heart failure I50.32 Carotid artery stenosis I65.29 Tobacco pipe smoker F17.290 Diabetes E11.9 Diabetes mellitus type: type 2 Diabetes mellitus skilled nursing insulin use: without adjunct faculty for medical terminology use Diabetes mellitus complication status: without complication Hypertension I10 Hypertension type: essential hypertension Chronic venous insufficiency I87.2 COPD (chronic obstructive pulmonary disease) J44.9 (1) Diabetes Diabetes mellitus type: type 2 Diabetes mellitus adjunct faculty for medical terminology insulin use: without adjunct faculty for medical terminology use Diabetes mellitus complication status: without complication Qualified Code(s): E11.9 - Type 2 diabetes mellitus without complications (2) Hypertension Hypertension type: essential hypertension Qualified Code(s): I10 - Essential (primary) hypertension
[2020-08-03] MEDS: ATORVASTATIN 40 MG TAB PO SCH (20:35)
[2020-08-03] MEDS: AMLODIPINE BESYLATE 5 MG TAB PO SCH (20:35)
[2020-08-03] MEDS: POTASSIUM CHLORIDE 20 MEQ TABCR PO SCH (21:08)
[2020-08-04] MEDS: PIPERACILLIN/TAZOBACTAM 4.5 GM in DEXTROSE 5% 100 ML IV SCH ×3 (02:05→17:34)
[2020-08-04] MEDS: HEPARIN SOD 5,000 UNIT/0.5 ML VIAL SQ SCH ×3 (05:26→20:49)
[2020-08-04] MEDS: ACETAMINOPHEN 325 MG TAB PO PRN ×3 (05:27→21:40)
[2020-08-04 07:37] LABS: Calcium 8.9 mg/dl (8.5-10.1); Creatinine Clr Calc Pharmacy 118.5 ml/min; Est GFR (African American) 102.9; Est GFR (Non-African American) 88.8; Potassium 3.7 mmol/L (3.5-5.1)
[2020-08-04] MEDS: ASPIRIN 81 MG ECTAB PO SCH (08:19)
[2020-08-04] MEDS: POTASSIUM CHLORIDE 20 MEQ TABCR PO SCH ×2 (08:19→20:50)
[2020-08-04] MEDS: CETIRIZINE HCL 10 MG TABLET PO SCH (08:19)
[2020-08-04] MEDS: lisinopriL 40 MG TAB PO SCH (08:19)
[2020-08-04] MEDS: ASCORBIC ACID 500 MG TAB PO SCH (08:19)
[2020-08-04] MEDS: METOPROLOL TARTRATE 50 MG TAB PO SCH ×2 (08:19→20:51)
[2020-08-04] MEDS: FUROSEMIDE 40 MG in SYRINGE 0 ML IV SCH ×2 (08:20→17:02)
[2020-08-04] MEDS: INSULIN GLARGINE SOLOSTAR 100 UNITS/ML 3 ML PEN SC SCH (08:21)
[2020-08-04] MEDS: INSULIN ASPART 100 UNITS/ML 3 ML PEN SC SCH ×4 (08:22→20:49)
--- NOTE | 2020-08-04 14:59 | Pharmacy Report ---
Pharmacy Glycemic Short Note 2 - Date of Service August 04, 2020 - Glycemic Short BSG Results (Last 24 hours): 08/03/20 08/03/20 08/04/20 16:44 20:05 06:30 Glucose 117 H POC Glucose 106 H 139 H 08/04/20 08/04/20 07:33 11:48 Glucose POC Glucose 104 H 120 H OUTPATIENT ANTIDIABETIC REGIMEN: * Metformin 1,000mg PO daily Risk Factors for Insulin Resistance: * Infection * Diet ASSESSMENT: 08/04: * Patient is currently receiving an average of 29 units of insulin per day * 10 units of basal insulin * 19 units of prandial/correctional insulin * BSGs ranging 106 - 139 mg/dL over the past 24hrs * Risk factors for insulin resistance are constant * I will slightly decrease Lantus based on fasting BSG trending downward. Otherwise, continue current regimen. 08/02: * 64yo T2DM male known to pharmacy from previous admissions/glycemic consults - most recently 11/2019 * Near-adequate outpatient control with metformin monotherapy per A1c. Could consider increasing dose of metformin to BID to achieve goal A1c of <7% * Oral agents are not recommended for inpatient use d/t drug interactions, changing PO intake, and difficulty titrating for acute hyper/hypoglycemia. ADA recommends re-initiating outpatient oral agents 1-2 days prior to discharge if/when appropriate if they were held on admission. * Will hold oral agents for admission and utilize SQ basal bolus insulin regimen which is the recommended regimen for inpatient glycemic control. * Will initiate low stress weight based insulin dosing for insulin rafal patient and titrate based on BSG trends. PLAN FOR INPATIENT GLYCEMIC CONTROL: * Hold outpatient oral diabetes medications * Basal insulin * Lantus 9 units SQ daily * Bolus insulin * NovoLog per scale ACHS or Q6hrs while NPO * Goal Range: Low 110 mg/dL - High 140 mg/dL * Correction Factor: 25 mg/dL/unit * Nutritional / Prandial insulin per carb ratio of 1 unit per 8 grams CHO co nsumed
--- NOTE | 2020-08-04 15:38 | Hospitalist Progress Note ---
Date of Service August 04, 2020 Assessment & Plan (1) Cellulitis: left lower extremity cellulitis Failed outpatient ABX MSSA transition to Zosyn to cover more polymicrobial infection although culture showed MSSA. Likely has component of chronic venous stasis. His cardiac catheterization from March 2020 only showed mild primary hypertension mostly related to his morbid obesity and perhaps obesity hypoventilation syndrome (2) Lower extremity edema: chronic, continues on intravenous Lasix at this time. Repeat echocardiogram shows diastolic dysfunction or chronic diastolic heart failure no comment on pulmonary hypertension at this point but he may well have some given his chronic hypoxic respiratory failure (3) Obstructive sleep apnea: Wears oxygen at home. Consider repeat sleep study to see if patient repeats CPAP at home. Morbidly obese, BMI 48.6 kg/m*m Patient has chronic respiratory failure with hypoxia likely underlying COPD perhaps environmental exposure to silica and asbestos will continue to follow Dr. Crowley (4) Chronic diastolic heart failure: Patient had heart catheterization in March 2020 which showed three-vessel coronary disease and was referred for evaluation for CABG however the patient has significant comorbidities most importantly COPD with an FEV1 around 59% predicted and dependency on oxygen. His morbid obesity and chronic venous stasis also makes vein harvesting a challenge in his last was seen in cardiology office May 30, 2020 at which time they are deferring to pulmonary medicine whether he should have bypass. Echocardiogram shows chronic diastolic heart failure. continue intravenous Lasix therapy will likely refer to cardiology for reassessment of need for revascularization (5) Carotid artery stenosis: aspirin and atorvastatin (6) Tobacco pipe smoker: Patient smokes about 1 pipe a week. Denies need for nictotine patch. (7) Diabetes: typically on metfrormin, admitting provider did consult glycemic control last A1C : 8.4 back in Dec (8) Hypertension: lisinopril 40, amlodipine 10 (9) Chronic venous insufficiency: stable. dvt: heparin (10) COPD (chronic obstructive pulmonary disease): chronic respiratory failure with hypoxia Admission and Anticipated Discharge Date Admission Date: August 01, 2020 Subjective Continues with reduced swelling and discomfort and erythema to his leg.. He continues without a chest pain but he is dyspneic on exertion he is on chronic oxygen for which he has been on since he had pneumonia a few months ago. He likely has underlying COPD but also has had environmental exposure to both silica and asbestos in various employment opportunities he has had over his lifetime His biggest concern is the delay in evaluation for revascularization due to his pulmonary status Review of Systems Review of Systems: Mild distress and fatigue no headache, blurry or double vision no speech or swallowing issues no chest pain, pressure or palpitations Continues with dyspnea with exertion and at rest no abdominal pain, nausea or vomiting, diarrhea or constipation no dysuria, hematuria or frequency no focal joint pain significant bilateral lower extremity swelling left greater than right improvement admission but still not at his baseline no back pain, CVA tenderness or radicular pain Erythema and some skin changes to his left lower extremity no focal signs of weakness or numbness or altered sensation no complaints or anxiety or depression. Physical Exam Physical Exam: The patient appeared well nourished and normally developed. Vital signs as documented. Head exam is normocephalic atraumatic no scleral icterus Neck is without JVD, thyromegaly, or carotid bruits. Lungs are diminished at the bases with poor air movement no focal air loss or wheezes Cardiac exam, Rhythm is regular.. Systolic ejection murmur is heard Abdominal exam reveals normal bowel sounds, soft non tender, no masses Extremities are edematous difficult to find pulses. The left leg has persistent erythema swelling and skin discoloration improved from yesterday n Neurologic exam is alert and oriented, no focal loss of strength or sensation Psychologically is without concerns for anxiety or depression. Results & Data Results & Data ([facility]) Vital Signs (Past 12 Hours) Vital Signs Temp Pulse Resp BP BP Pulse Ox 08/04/20 14:41 98.2 F 71 20 135/80 93 08/04/20 07:00 97.5 F L 74 20 132/80 95 PG Care Time/CCT Total # of Minutes Spent Total Time Spent with Patient: Total time spent is greater than 50% in coordination of care (as documented) at patient's floor/unit and/or counseling patient: Coding Level of Care Code 77231 Subseq Hosp Care Lvl 2 Diagnoses Cellulitis L03.90 Lower extremity edema R60.0 Obstructive sleep apnea G47.33 Chronic diastolic heart failure I50.32 Carotid artery stenosis I65.29 Tobacco pipe smoker F17.290 Diabetes E11.9 Diabetes mellitus type: type 2 Diabetes mellitus exterminator insulin use: without exterminator use Diabetes mellitus complication status: without complication Hypertension I10 Hypertension type: essential hypertension Chronic venous insufficiency I87.2 COPD (chronic obstructive pulmonary disease) J44.9 (1) Diabetes Diabetes mellitus type: type 2 Diabetes mellitus residential insulin use: without exterminator use Diabetes mellitus complication status: without complication Qualified Code(s): E11.9 - Type 2 diabetes mellitus without complications (2) Hypertension Hypertension type: essential hypertension Qualified Code(s): I10 - Essential (primary) hypertension
[2020-08-04] MEDS: AMLODIPINE BESYLATE 5 MG TAB PO SCH (20:50)
[2020-08-04] MEDS: ATORVASTATIN 40 MG TAB PO SCH (20:51)
[2020-08-05] MEDS: PIPERACILLIN/TAZOBACTAM 4.5 GM in DEXTROSE 5% 100 ML IV SCH ×3 (03:00→18:32)
[2020-08-05] MEDS: HEPARIN SOD 5,000 UNIT/0.5 ML VIAL SQ SCH ×3 (06:25→20:53)
[2020-08-05] MEDS: METOPROLOL TARTRATE 50 MG TAB PO SCH ×2 (07:25→20:53)
[2020-08-05] MEDS: ASCORBIC ACID 500 MG TAB PO SCH (07:25)
[2020-08-05] MEDS: FUROSEMIDE 40 MG in SYRINGE 0 ML IV SCH ×2 (07:25→17:12)
[2020-08-05] MEDS: ASPIRIN 81 MG ECTAB PO SCH (07:25)
[2020-08-05] MEDS: CETIRIZINE HCL 10 MG TABLET PO SCH (07:25)
[2020-08-05] MEDS: lisinopriL 40 MG TAB PO SCH (07:26)
[2020-08-05 07:27] LABS: Calcium 9.4 mg/dl (8.5-10.1); Creatinine Clr Calc Pharmacy 111.2 ml/min; Est GFR (African American) 95.2; Est GFR (Non-African American) 82.2; Potassium 3.7 mmol/L (3.5-5.1)
[2020-08-05] MEDS: INSULIN ASPART 100 UNITS/ML 3 ML PEN SC SCH ×4 (08:21→20:53)
[2020-08-05] MEDS: INSULIN GLARGINE SOLOSTAR 100 UNITS/ML 3 ML PEN SC SCH (08:21)
--- NOTE | 2020-08-05 08:29 | Pharmacy Report ---
Pharmacy Glycemic Short Note 2 - Date of Service August 05, 2020 - Glycemic Short BSG Results (Last 24 hours): 08/04/20 08/04/20 08/04/20 11:48 16:38 20:00 Glucose POC Glucose 120 H 115 H 135 H 08/05/20 08/05/20 06:38 07:44 Glucose 108 H POC Glucose 106 H OUTPATIENT ANTIDIABETIC REGIMEN: * Metformin 1,000mg PO daily * HbA1c: 7.7% (08/02/20) ASSESSMENT: 08/05: * BSGs very well controlled yesterday at 104, 120, 115, and 135 mg/dL * Received 31 units of insulin (9 of which were basal) * Antibiotics de-escalated to Zosyn monotherapy * Fasting BSG of 106 mg/dL * Anticipating no changes to insulin regimen today 08/02: * 64yo T2DM male known to pharmacy from previous admissions/glycemic consults - most recently 11/2019 * Near-adequate outpatient control with metformin monotherapy per A1c. Could consider increasing dose of metformin to BID to achieve goal A1c of <7% * Oral agents are not recommended for inpatient use d/t drug interactions, changing PO intake, and difficulty titrating for acute hyper/hypoglycemia. ADA recommends re-initiating outpatient oral agents 1-2 days prior to discharge if/when appropriate if they were held on admission. * Will hold oral agents for admission and utilize SQ basal bolus insulin regimen which is the recommended regimen for inpatient glycemic control. * Will initiate low stress weight based insulin dosing for insulin rafal patient and titrate based on BSG trends. PLAN FOR INPATIENT GLYCEMIC CONTROL: * Hold outpatient oral diabetes medications * Basal insulin - continue * Lantus 9 units SQ daily * Bolus insulin - continue * NovoLog per scale ACHS or Q6hrs while NPO * Goal Range: Low 110 mg/dL - High 140 mg/dL * Correction Factor: 25 mg/dL/unit * Nutritional / Prandial insulin per carb ratio of 1 unit per 8 grams CHO consumed PLAN FOR DISCHARGE: * HbA1c of 7.7% is above goal of less than 7% * Consider further up-titration of metformin to maximum dose of 1000 mg PO BIDM * Dosage increases should be made in increments of 500 mg weekly, up to 2,000 mg/day PO, given in divided doses.
[2020-08-05] MEDS: ACETAMINOPHEN 325 MG TAB PO PRN ×2 (09:06→14:07)
--- NOTE | 2020-08-05 14:19 | Hospitalist Progress Note ---
Date of Service August 05, 2020 Assessment & Plan (1) Cellulitis: left lower extremity cellulitis Failed outpatient ABX MSSA transition to Zosyn to cover more polymicrobial infection although culture showed MSSA. Likely has component of chronic venous stasis. no fever, WBC normal, erythema receding from initial border will continue Zosyn, likely home on Augmentin for extended course (2) Lower extremity edema: chronic, continues on intravenous Lasix at this time. Repeat echocardiogram shows diastolic dysfunction or chronic diastolic heart failure no comment on pulmonary hypertension at this point but he may well have some given his chronic hypoxic respiratory failure has not had a weight since 08/02, will order daily weights starting today to determine if he is responding to Lasix (3) Obstructive sleep apnea: Wears oxygen at home. Consider repeat sleep study to see if patient repeats CPAP at home. Morbidly obese, BMI 48.6 kg/m*m Patient has chronic respiratory failure with hypoxia likely underlying COPD perhaps environmental exposure to silica and asbestos will continue to follow Dr. Crowley (4) Chronic diastolic heart failure: Patient had heart catheterization in March 2020 which showed three-vessel coronary disease and was referred for evaluation for CABG however the patient has significant comorbidities most importantly COPD with an FEV1 around 59% predicted and dependency on oxygen. His morbid obesity and chronic venous stasis also makes vein harvesting a challenge in his last was seen in cardiology office May 30, 2020 at which time they are deferring to pulmonary medicine whether he should have bypass. Echocardiogram shows chronic diastolic heart failure. continue intravenous Lasix therapy will likely refer to cardiology for reassessment of need for revascularization (5) Carotid artery stenosis: aspirin and atorvastatin (6) Tobacco pipe smoker: Patient smokes about 1 pipe a week. Denies need for nictotine patch. (7) Diabetes: typically on metfrormin, admitting provider did consult glycemic control last A1C : 8.4 back in Dec (8) Hypertension: lisinopril 40, amlodipine 10 (9) Chronic venous insufficiency: stable. dvt: heparin (10) COPD (chronic obstructive pulmonary disease): chronic respiratory failure with hypoxia Admission and Anticipated Discharge Date Admission Date: August 01, 2020 Subjective patient doing well, he says the redness in left leg is receding he has not fever, minimal pain with left leg he is making more urine than normal on the Lasix but has not noticed a real change in swelling we discussed his interest in getting CABG he was referred to cardiothoracic surgery at [place], they wanted him to come off oxygen has been on 2L for a year, he cannot titrate off, has tried numerous times at home also concerns for vein harvesting due to his recurrent cellulitis he asked if I thought he should get a second opinion, I feel that it would be worthwhile labs today show stable BMP Review of Systems Review of Systems: All systems reviewed & are unremarkable except as noted in Subjective Constitutional: no fever, no sweats, no fatigue and no weakness Respiratory: no cough and no dyspnea Cardiovascular: + edema (bilaterally); no chest pain and no palpitations Integumentary: + wounds (left lower leg) and + erythema Physical Exam Constitutional: well developed and + obese; no acute distress Eyes: PERRL, conjunctivae normal, anicteric sclerae ENMT: external ear and nose normal, oropharynx normal Neck: trachea midline, no thyromegaly Respiratory: normal respiratory effort, lungs clear to auscultation Cardiovascular: RRR, no murmur, no edema Gastrointestinal (Abdomen): normal bowel sounds, soft, nontender, no hepatosplenomegaly Musculoskeletal: no cyanosis or clubbing, extremities motor strength 5/5 Skin: + wound (left monge) and + erythema (left lower leg) Neurologic: patellar DTR's 2+ bilat, sensation intact and PERRL, EOMI, accommodation nl, no face palsy, no dysarthria Psychiatric: A+Ox3, euthymic affect Lymphatic: no cervical or axillary lymphadenopathy Results & Data Results & Data ([facility]) Vital Signs (Past 12 Hours) Vital Signs Temp Pulse Resp BP BP Pulse Ox 08/05/20 07:00 36.5 C 71 20 163/66 H 149/76 H 96 Laboratory Results Laboratory Results - last 24 hr 08/04/20 08/04/20 08/05/20 16:38 20:00 06:38 Sodium 141 Potassium 3.7 Chloride 104 Carbon Dioxide 32 Anion Gap 6.0 BUN 18 Creatinine 0.97 Est Cr Clr Drug Dosing 111.2 Est GFR ( Amer) 95.2 Est GFR (Non-Af Amer) 82.2 BUN/Creatinine Ratio 18.0 Glucose 108 H POC Glucose 115 H 135 H Calcium 9.4 08/05/20 08/05/20 07:44 11:29 Sodium Potassium Chloride Carbon Dioxide Anion Gap BUN Creatinine Est Cr Clr Drug Dosing Est GFR ( Amer) Est GFR (Non-Af Amer) BUN/Creatinine Ratio Glucose POC Glucose 106 H 142 H Calcium Medications Administered Current Inpatient Medications Acetaminophen (Acetaminophen 325 Mg Tab) 650 mg PO Q4H PRN PRN Reason: pain/fever Stop: 08/31/20 15:44 Last Admin: 08/05/20 14:07 Dose: 650 mg Documented by: Amlodipine Besylate (Amlodipine Besylate 5 Mg Tab) [address] [facility] Stop: 08/31/20 20:59 Last Admin: 08/04/20 20:50 Dose: 10 mg Documented by: Ascorbic Acid (Ascorbic Acid 500 Mg Tab) 1,000 mg PO QAM [facility] Stop: 09/01/20 08:59 Last Admin: 08/05/20 07:25 Dose: 1,000 mg Documented by: Aspirin (Aspirin 81 Mg Ectab) 81 mg PO QAM [facility] Stop: 09/01/20 08:59 Last Admin: 08/05/20 07:25 Dose: 81 mg Documented by: Atorvastatin Calcium (Atorvastatin 40 Mg Tab) [address] [facility] Stop: 08/31/20 20:59 Last Admin: 08/04/20 20:51 Dose: 40 mg Documented by: Cetirizine HCl (Cetirizine Hcl 10 Mg Tablet) [facility] [place] [facility] Stop: 09/01/20 08:59 Last Admin: 08/05/20 07:25 Dose: 10 mg Documented by: Dextrose (Dextrose 50% 50 Ml Syringe) 25 - 50 ml IV UD PRN; Protocol PRN Reason: Hypoglycemia Protocol Stop: 08/31/20 22:29 Glucagon (Glucagon For Inj 1 Mg Vial) 1 mg IM UD PRN; Protocol PRN Reason: Hypoglycemia Protocol Stop: 08/31/20 22:29 Glucose (Glucose 40% Gel 15 Gm Tube) 15 - 30 gm PO UD PRN; Protocol PRN Reason: Hypoglycemia Protocol Stop: 08/31/20 22:29 Glucose (Glucose 10 Tabs/Tube) 4 - 8 tabs PO UD PRN; Protocol PRN Reason: Hypoglycemia Protocol Stop: 08/31/20 22:29 Heparin Sodium (Porcine) (Heparin Sod 5,000 Unit/0.5 Ml Vial) 5,000 units SQ Q8 [facility] Stop: 09/01/20 13:59 Last Admin: 08/05/20 13:35 Dose: 5,000 units Documented by: Piperacillin Sod/Tazobactam (Sod 4.5 gm/ Dextrose) 120 mls @ 30 mls/hr IV Q8H [facility]; Protocol Stop: 08/08/20 17:59 Last Infusion: 08/05/20 13:21 Dose: Infused Documented by: Furosemide 40 mg/ Syringe 4 mls @ 4 mls/min IV BID17 [facility] Stop: 09/01/20 16:59 Last Admin: 08/05/20 07:25 Dose: 4 mls/min Documented by: Insulin Aspart (Insulin Aspart 100 Units/Ml 3 Ml Pen) 0 units SC ACHS [facility]; Protocol Stop: 08/31/20 22:29 Last Admin: 08/05/20 12:02 Dose: 9 units Documented by: Insulin Glargine (Insulin Glargine Solostar 100 Units/Ml 3 Ml Pen) 9 units SC DAILY [facility]; Protocol Stop: 09/03/20 08:59 Last Admin: 08/05/20 08:21 Dose: 9 units Documented by: Lisinopril (Lisinopril 40 Mg Tab) 40 mg PO QAM [facility] Stop: 09/01/20 08:59 Last Admin: 08/05/20 07:26 Dose: 40 mg Documented by: Metoprolol Tartrate (Metoprolol Tartrate 50 Mg Tab) 50 mg PO BID [facility] Stop: 08/31/20 20:59 Last Admin: 08/05/20 07:25 Dose: 50 mg Documented by: Miscellaneous (Carbohydrates For Hypoglycemia ) 15 - 30 gm PO UD PRN PRN Reason: Hypoglycemia Treatment Stop: 08/31/20 22:29 Miscellaneous Information (Piperacill/Tazobac Consult Active) 1 ea N/A UD PRN PRN Reason: Consult Stop: 08/31/20 12:57 Miscellaneous Information (Pharmacy Glycemic Mgmt Consult) 1 ea N/A UD PRN PRN Reason: Consult Stop: 08/31/20 22:18 Nitroglycerin (Nitroglycerin Sl 0.4 Mg/Tab Tab) 0.4 mg SL Q5M PRN PRN Reason: chest pain Stop: 08/31/20 15:48 Ondansetron HCl (Ondansetron Inj 2 Mg/Ml 2 Ml Vial) 4 mg IV Q6H PRN PRN Reason: Nausea Stop: 08/31/20 15:44 Polyethylene Glycol (Polyethylene (Miralax) 17 Gm Pack) 17 gm PO DAILY PRN PRN Reason: Constipation Stop: 08/31/20 15:44 PG Care Time/CCT Total # of Minutes Spent Total Time Spent with Patient: Total time spent is greater than 50% in coordination of care (as documented) at patient's floor/unit and/or counseling patient: Coding Level of Care Code 53463 Subseq Hosp Care Lvl 2 Diagnoses Cellulitis L03.90 Lower extremity edema R60.0 Obstructive sleep apnea G47.33 Chronic diastolic heart failure I50.32 Carotid artery stenosis I65.29 Tobacco pipe smoker F17.290 Diabetes E11.9 Diabetes mellitus complication status: without complication Diabetes mellitus intermodal customer service insulin use: without residential use Diabetes mellitus type: type 2 Hypertension I10 Hypertension type: essential hypertension Chronic venous insufficiency I87.2 COPD (chronic obstructive pulmonary disease) J44.9 (1) Diabetes Diabetes mellitus complication status: without complication Diabetes mellitus residential insulin use: without intermodal customer service use Diabetes mellitus type: type 2 Qualified Code(s): E11.9 - Type 2 diabetes mellitus without complications (2) Hypertension Hypertension type: essential hypertension Qualified Code(s): I10 - Essential (primary) hypertension
[2020-08-05] MEDS ORDERED: IBUPROFEN 200 MG TAB PO PRN (16:14)
--- NOTE | 2020-08-05 18:01 | Cardiology Consultation ---
Date of Consultation August 05, 2020 Assessment & Plan (1) Multi-vessel coronary artery stenosis: 2. Venous stasis ulcerations with recurrent left lower extremity cellulitis 3. Chronic diastolic heart failure 4. Reported COPD with O2 dependencePFTs more consistent with restrictive lung disease due to body habitus 5. Type 2 diabetes 6. Hypertension 7. Morbid obesity/EDISON Patient stable from a cardiac standpoint. Persistent lower extremity edema secondary to chronic venous insufficiency unchanged from prior. May be a candidate for repeat superficial venous intervention down the road. No evidence of pulmonary congestion on exam. Rare intermittent chest pain unchanged in frequency or severity. We discussed patient's severe, high risk multivessel CAD including left main disease. Has been seen twice at [facility] with no plans for surgery at present due to comorbidities. Patient is interested in getting a second surgical opinion. We will arrange for surgical consultation with Dr. Barrett at [facility]. In the interim continue current aspirin, statin, antianginal therapy and maintenance diuretics. History of Present Illness Attending Physician: Prabhakar Mckeon, History of Present Illness Mr. Kearns is a 64 year old male with medical history significant for chronic venous insufficiency s/p left GSV ablation, chronic diastolic CHF, type 2 diabetes, hypertension, dyslipidemia and COPD on chronic O2. Currently patient is admitted with recurrent left lower extremity cellulitis which is failed outpatient oral antibiotics. Patient currently improving on IV antibiotics. Patient was initially seen by me in the wound clinic in October 2019 for venous stasis ulcers of his left lower extremity. He underwent left GSV adhesive ab lation (GSV only partially closed with adhesive voids on follow-up ultrasound). In February 2020 endorsed several weeks of burning chest discomfort with exertion. Underwent cardiac catheterization revealing severe multivessel CAD (70 to 80% ostial left main, 50 to 60% distal left main, 80% lateproximal LAD stenosis prior to aneurysmal bifurcation with first diagonal. Diagonal with 95% ostial stenosis. Moderate diffuse mid RCA disease, 70 to 80% ostial right PDA). He was referred to [facility] for CT surgery evaluation and was seen by Dr. Eric. been elevated risk surgical candidate. Some initial concerns regarding now resolved renal insufficiency. Most recent visit back in May and surgery remained concerned about O2 dependence. PFTs consistent with moderate restriction likely secondary to body habitus (FEV1 1.93 59%, FVC 59%, DLCO 80). Currently feels that breathing symptoms are at recent baseline. Reports occasional intermittent chest pain and 2 episodes at rest over the last 2 months which required sublingual nitroglycerin. Occasion with walking up stairs will still have brief chest pain. Family history: Mother and father both had MIs in 50-60s. Mother from diabetes complications. Father from stroke. Social history: Lives alone in the [place] area. Quit smoking 2-3 months ago. No alcohol or drug use. Allergies Allergy/AdvReac Type Severity Reaction Status Date / Time No Known Drug Allergies Allergy Verified 08/01/20 14:23 Home Medications Home Medications Medication Instructions Recorded Confirmed Type ascorbic acid (vitamin C) [Vitamin 1,000 mg PO QAM 10/31/18 08/01/20 History C] aspirin [Aspir-81] 81 mg PO QAM 10/31/18 08/01/20 History cetirizine 10 mg PO QAM 10/31/18 08/01/20 History potassium gluconate 600 mg PO QAM 10/31/18 08/01/20 History turmeric root extract 500 mg PO QAM 10/31/18 08/01/20 History acetaminophen 1,300 mg PO UD PRN 11/24/19 08/01/20 History atorvastatin 40 mg tablet 40 mg PO HS #90 tab 04/11/20 08/01/20 Rx metoprolol tartrate 50 mg tablet 50 mg PO BID #60 tab 04/11/20 08/01/20 Rx nitroglycerin 0.4 mg sublingual 0.4 mg SL Q5M PRN #30 tab 05/09/20 08/01/20 Rx tablet metformin 1,000 mg tablet 1,000 mg PO DAILY tab 06/06/20 08/01/20 History furosemide 40 mg tablet 60 mg PO QAM #90 tab 06/24/20 08/01/20 Rx amlodipine 10 mg tablet 10 mg PO HS #90 tab 07/17/20 08/01/20 Rx ciprofloxacin HCl 500 mg tablet 500 mg PO q12h #28 tab 07/22/20 08/01/20 Rx lisinopril 40 mg PO QAM 08/01/20 08/01/20 History Patient History Medical History Acute hypercapnic respiratory failure (~11/2019) Acute kidney failure (~11/2019) Arthritis Carotid artery stenosis 01/22/2020-50-69 percent stenosis within proximal left internal carotid artery, moderate stenosis within the bilateral external carotid arteries Cellulitis CHF (congestive heart failure) Chronic venous insufficiency Congestive heart failure Diabetes GERD without esophagitis HTN (hypertension) Hyperlipidemia Hypertension Obstructive sleep apnea Septic shock (~11/2019) [facility] Tobacco pipe smoker Smokes 1 pipe / week Venous stasis ulcer Venous ulcer of left leg Vitamin D deficiency Surgical History Hx of hand surgery Family History Aunt Colorectal cancer maternal aunt Mother Myocardial infarction Father Myocardial infarction Denies family history of Ovarian cancer Prostate cancer Breast cancer Social History Smoking Status: Former smoker Cigarettes Per Day: 1 to 2 a day in a month; Second Hand Exposure: No; Hx Alcohol Use: No Hx Substance Use: No Preferred Language: Wolof Communication Ability: Effective Visual Impairment: No Limitations Hearing Ability: Normal Weight Loss Counselor Required: No Beliefs That Will Affect Care: None marital status: Single Current Living Situation: Alone current occupational status: disabled Feels Safe at Home: Yes Childhood Exposure to Second-Hand Smoke: Yes caffeine: Yes during the past year weight has: remained stable Dental Care, Regularly: No Physical Activity Frequency: Does not Exercise Seatbelt Use: always Sunscreen Use: No Review of Systems Review of Systems: All systems reviewed & are unremarkable except as noted in HPI & below Physical Exam Physical Exam: General: Comfortable, no acute distress, obese HEENT: Sclerae anicteric, mucous membranes moist Lungs: Clear to auscultation bilaterally, no rhonchi or wheezes Cardiac: Regular rate and rhythm, no murmurs. Abdomen: Soft, nontender, nondistended, positive bowel sounds. Extremities: Warm, well perfused. Dressings in place to mid monge. 2+ edema Neuro: Nonfocal Psych: Alert orient x3, normal affect and mood Results & Data ([facility]) Vital Signs (Past 12 Hours) Vital Signs Temp Pulse Resp BP BP Pulse Ox 08/05/20 15:59 97.7 F 66 16 130/60 95 08/05/20 07:00 97.7 F 71 20 163/66 H 149/76 H 96 PG Care Time/CCT Total # of Minutes Spent Total Time Spent with Patient: Total time spent is greater than 50% in coordination of care (as documented) at patient's floor/unit and/or counseling patient: Coding Level of Care Code 80856 Inpt Consult Level 4 Diagnoses Multi-vessel coronary artery stenosis I25.10
[2020-08-05] MEDS: AMLODIPINE BESYLATE 5 MG TAB PO SCH (20:52)
[2020-08-05] MEDS: ATORVASTATIN 40 MG TAB PO SCH (20:53)
[2020-08-06] MEDS: PIPERACILLIN/TAZOBACTAM 4.5 GM in DEXTROSE 5% 100 ML IV SCH ×2 (01:00→10:55)
[2020-08-06] MEDS: HEPARIN SOD 5,000 UNIT/0.5 ML VIAL SQ SCH (05:06)
[2020-08-06] MEDS: ACETAMINOPHEN 325 MG TAB PO PRN (05:11)
[2020-08-06 07:05] LABS: Basophils # (auto) 0.03 K/uL (0-0.2); Basophils % (auto) 0.4 %; Eosinophils # (auto) 0.47 K/uL (0-0.5); Eosinophils % (auto) 5.6 %; Hematocrit (blood only) 43.9 % (42-52); Hemoglobin 14.6 g/dL (14.0-18.0); Immature Granulocytes # (auto) 0.02 K/uL (0.00-0.02); Immature Granulocytes % (auto) 0.2 %; Lymphocytes # (auto) 2.26 K/uL (1.2-3.4); Lymphocytes % (auto) 26.9 %; Mean Corpuscular Hemoglobin 29.6 pg (25-34); Mean Corpuscular Hgb Conc 33.3 g/dL (32-36); Mean Corpuscular Volume 88.9 fL (80-100); Mean Platelet Volume 8.8 fL (7.4-10.4); Monocytes # (auto) 0.97 K/uL (0.11-0.59); Monocytes % (auto) 11.5 %; Neutrophils # (auto) 4.66 K/uL (1.4-6.5); Neutrophils % (auto) 55.4 %; Platelet Count 256 K/uL (130-400); RDW Coefficient of Variation 15.2 % (11.5-14.5); Red Blood Count 4.94 M/uL (4.7-6.1); White Blood Count 8.41 K/uL (4.8-10.8)
[2020-08-06] MEDS: lisinopriL 40 MG TAB PO SCH (07:25)
[2020-08-06] MEDS: FUROSEMIDE 40 MG in SYRINGE 0 ML IV SCH (07:25)
[2020-08-06] MEDS: METOPROLOL TARTRATE 50 MG TAB PO SCH (07:25)
[2020-08-06] MEDS: ASPIRIN 81 MG ECTAB PO SCH (07:25)
[2020-08-06] MEDS: ASCORBIC ACID 500 MG TAB PO SCH (07:25)
[2020-08-06] MEDS: CETIRIZINE HCL 10 MG TABLET PO SCH (07:25)
[2020-08-06 07:43] LABS: BUN Creatinine Ratio 17.6 (10-20); Calcium 9.1 mg/dl (8.5-10.1); Creatinine Clr Calc Pharmacy 119.8 ml/min; Est GFR (African American) 104.2; Est GFR (Non-African American) 89.9; Potassium 3.9 mmol/L (3.5-5.1)
--- NOTE | 2020-08-06 08:25 | Pharmacy Report ---
Pharmacy Glycemic Short Note 2 - Date of Service August 06, 2020 - Glycemic Short BSG Results (Last 24 hours): 08/05/20 08/05/20 08/05/20 11:29 16:57 20:27 Glucose POC Glucose 142 H 96 107 H 08/06/20 08/06/20 06:26 07:25 Glucose 93 POC Glucose 97 OUTPATIENT ANTIDIABETIC REGIMEN: * Metformin 1,000mg PO daily * HbA1c: 7.7% (08/02/20) ASSESSMENT: 08/06: * BSGs tightly controlled yesterday at 106, 142, 96, 107 mg/dL - will increase upper end of goal range today * Received 32 units of insulin (9 of which were basal) * Fasting BSG of 97 mg/dL * will decrease basal insulin by ~10% * Continues on Zosyn monotherapy for LLE cellulitis 08/02: * 64yo T2DM male known to pharmacy from previous admissions/glycemic consults - most recently 11/2019 * Near-adequate outpatient control with metformin monotherapy per A1c. Could consider increasing dose of metformin to BID to achieve goal A1c of <7% * Oral agents are not recommended for inpatient use d/t drug interactions, changing PO intake, and difficulty titrating for acute hyper/hypoglycemia. ADA recommends re-initiating outpatient oral agents 1-2 days prior to discharge if/when appropriate if they were held on admission. * Will hold oral agents for admission and utilize SQ basal bolus insulin regimen which is the recommended regimen for inpatient glycemic control. * Will initiate low stress weight based insulin dosing for insulin rafal patient and titrate based on BSG trends. PLAN FOR INPATIENT GLYCEMIC CONTROL: * Hold outpatient oral diabetes medications * Basal insulin - decrease * Lantus 8 units SQ daily * Bolus insulin - increase upper end of goal range to 150 * NovoLog per scale ACHS or Q6hrs while NPO * Goal Range: Low 110 mg/dL - High 150 mg/dL * Correction Factor: 25 mg/dL/unit * Nutritional / Prandial insulin per carb ratio of 1 unit per 8 grams CHO consumed PLAN FOR DISCHARGE: * HbA1c of 7.7% is above goal of less than 7% * Consider further up-titration of metformin to maximum dose of 1000 mg PO BIDM * Dosage increases should be made in increments of 500 mg weekly, up to 2,000 mg/day PO, given in divided doses.
[2020-08-06] MEDS: INSULIN ASPART 100 UNITS/ML 3 ML PEN SC SCH ×2 (08:27→12:13)
[2020-08-06] MEDS ORDERED: INSULIN GLARGINE SOLOSTAR 100 UNITS/ML 3 ML PEN SC SCH (09:00)
--- NOTE | 2020-08-06 21:44 | Discharge Summary ---
Date of Service August 06, 2020 Admission HPI Per Admitting Provider This is a pleasant 64-year-old gentleman known to our service with past medical history of CHF, COPD on home oxygen, diabetes, CAD, history of lower extremity edema with recent left lower leg cellulitis. He was sent to the ER after being seen by the wound care clinic today for failed outpatient management of his cellulitis. He was taking cefdinir and ciprofloxacin with no significant improvement ROS: He denies any fevers, chills, N/V, chest pain, body aches, cough, congestion, chest pain, new shortness of breath, diarrhea, dizziness, change of vision, change of hearing. Principal Diagnosis Left leg cellulitis Discharge Exam Constitutional well developed and + obese; no acute distress Eyes PERRL, conjunctivae normal, anicteric sclerae ENMT external ear and nose normal, oropharynx normal Neck trachea midline, no thyromegaly Respiratory normal respiratory effort, lungs clear to auscultation Cardiovascular RRR, no murmur, no edema Gastrointestinal (Abdomen) normal bowel sounds, soft, nontender, no hepatosplenomegaly Musculoskeletal no cyanosis or clubbing, extremities motor strength 5/5 Skin + wound (left monge) and + erythema (left lower leg) Neurologic patellar DTR's 2+ bilat, sensation intact and PERRL, EOMI, accommodation nl, no face palsy, no dysarthria Psychiatric A+Ox3, euthymic affect Lymphatic no cervical or axillary lymphadenopathy Discharge Data Allergies Allergy/AdvReac Type Severity Reaction Status Date / Time No Known Drug Allergies Allergy Verified 08/08/20 14:31 Consultations 08/01/20 14:45 ED Decision to Admit Stat 08/04/20 16:51 Consult Cardiology Routine Hospital Course (1) Cellulitis: left lower extremity cellulitis Failed outpatient ABX MSSA transition to Zosyn to cover more polymicrobial inf ection although culture showed MSSA. Likely has component of chronic venous stasis. no fever, WBC normal, erythema receding from initial border discharge home on Augmentin for 10 more days, received 6 days of IV antibiotics (2) Lower extremity edema: chronic, no real change with IV Lasix. Repeat echocardiogram shows diastolic dysfunction or chronic diastolic heart failure no comment on pulmonary hypertension at this point but he may well have some given his chronic hypoxic respiratory failure weight stayed the same throughout hospitalization despite increase in Lasix discussed with him on discharge that he should follow a fluid restriction, this is the first time he had heard of this (3) Obstructive sleep apnea: Wears oxygen at home Morbidly obese, BMI 48.6 kg/m*m Patient has chronic respiratory failure with hypoxia likely underlying COPD perhaps environmental exposure to silica and asbestos will continue to follow Dr. Crowley (4) Chronic diastolic heart failure: Patient had heart catheterization in March 2020 which showed three-vessel coronary disease and was referred for evaluation for CABG however the patient has significant comorbidities most importantly COPD with an FEV1 around 59% predicted and dependency on oxygen. His morbid obesity and chronic venous stasis also makes vein harvesting a challenge in his last was seen in cardiology office May 30, 2020 at which time they are deferring to pulmonary medicine whether he should have bypass. cardiology will refer him to cardiothoracic surgeon at [facility] to get a second opinion on bypass surgery Echocardiogram shows chronic diastolic heart failure. continue intravenous Lasix therapy will likely refer to cardiology for reassessment of need for revascularization (5) Carotid artery stenosis: aspirin and atorvastatin (6) Tobacco pipe smoker: Patient smokes about 1 pipe a week. Denies need for nictotine patch. (7) Diabetes: typically on metfrormin, admitting provider did consult glycemic control last A1C : 8.4 back in Dec (8) Hypertension: lisinopril 40, amlodipine 10 (9) Chronic venous insufficiency: stable. dvt: heparin (10) COPD (chronic obstructive pulmonary disease): chronic respiratory failure with hypoxia Total Time Total Time Spent Total Time Spent (In Minutes): 32 minutes Total Time Includes: Examination of the Patient, Discharge Planning, Medication Reconciliation and Communication With Other Providers Discharge Plan Discharge Items Patient Disposition: Home - Self-Care Reason For Visit: CELLULITIS Discharge Diagnosis: Cellulitis of left lower extremity, MSSA (staph aureus) Chronic diastolic heart failure Severe coronary artery disease Condition on Discharge: Good Goals: complete course of Augmentin follow up with wound clinic this week follow up with cardiology for referral to [facility] for second opinion on bypass surgery Activity: Resume your previous activity Driving/Machine Use: No limitations Weightbearing: Full weightbearing Non-emergency contact: Primary Care Provider and Rv Technician Call non-emergency contact if: you have any medication questions and your symptoms worsen Follow-up/Referrals: Ludwig Vargas CRNP [Primary Care Provider] - 08/12/20 11:40 am (You have a follow up appt with Ludwig Vargas on WednesdayAug 12 at 1140. Please arrive 15 minutes prior to your appt time. It is important that you keep this appt, if it does not fit your schedule please call [phone] to reschedule. ) Diet: Carb Consistent or DM2 and Heart Healthy Fluids: 1800ml (7 cups) Addtl Attending Provider Instructions: Medications: - AMOXICILLIN-CLAVULONATE: take twice a day for 20 total doses, start this evening, this will cover the MSSA infection in left leg Left leg cellulitis: treated with Zosyn IV initially wound culture grew out MSSA which would not have been covered by Cipro that you were previously taking, explains why it got worse stop the Cipro take the Augmentin for 10 days (20 doses) follow up with wound clinic this week Coronary disease, severe call cardiology office to request referral to Dr. Barrett at [facility] COPD, chronic hypoxia continue to follow closely with Dr. Crowley Pending Studies at Discharge: No Stand-Alone Forms: My [facility] [employer], Smoking Cessation Medications and DC Order Prescriptions: New amoxicillin-pot clavulanate 875-125 mg tablet 1 tab PO BID Qty: 20 RF: 0 Continued metformin 1,000 mg tablet 1,000 mg PO DAILY RF: 0 atorvastatin 40 mg tablet 40 mg PO HS Qty: 90 RF: 1 nitroglycerin 0.4 mg tablet, sublingual 0.4 mg SL Q5M PRN (Reason: chest pain) Qty: 30 RF: 0 furosemide 40 mg tablet 60 mg PO QAM Qty: 90 RF: 1 amlodipine 10 mg tablet 10 mg PO HS Qty: 90 RF: 1 metoprolol tartrate 50 mg tablet 50 mg PO BID Qty: 60 RF: 6 acetaminophen 650 mg Tablet Extended Release 1,300 mg PO UD PRN (Reason: Pain) RF: 0 lisinopril 40 mg tablet 40 mg PO QAM RF: 0 aspirin [Aspir-81] 81 mg Tablet,Delayed Release (Dr/Ec) 81 mg PO QAM RF: 0 potassium gluconate 600 mg (99 mg) Tablet 600 mg PO QAM RF: 0 turmeric root extract 500 mg Capsule 500 mg PO QAM RF: 0 ascorbic acid (vitamin C) [Vitamin C] 1,000 mg Tablet 1,000 mg PO QAM RF: 0 cetirizine 10 mg Tablet 10 mg PO QAM RF: 0 Discontinued ciprofloxacin HCl 500 mg tablet 500 mg PO q12h Qty: 28 RF: 0 Discharge Orders: Discharge Order (Routine); Ordered 08/06/20 Ordered By: Prabhakar Avila/Other Patient Handouts: Managing Type 2 Diabetes, Diabetes: Meal Planning Admission Data Admit Date/Time: 08/01/20 15:44 Attending Provider: Prabhakar Mckeon Admit Provider: Nikhil Carcamo Primary Care Provider: Ludwig Vargas Other Providers: Ramon Strauss ; Jian Blankenship Other Interventions: Discharge Summary Assessment (RN) Last Done: 08/06/20 13:04 Coding Level of Care Code D/C Day Management >30 mins Diagnoses Cellulitis L03.90 Lower extremity edema R60.0 Obstructive sleep apnea G47.33 Chronic diastolic heart failure I50.32 Carotid artery stenosis I65.29 Tobacco pipe smoker F17.290 Diabetes E11.9 Diabetes mellitus complication status: without complication Diabetes mellitus fci insulin use: without fci use Diabetes mellitus type: type 2 Hypertension I10 Hypertension type: essential hypertension Chronic venous insufficiency I87.2 COPD (chronic obstructive pulmonary disease) J44.9
== END 2020-08-06 13:24 | disposition home or self-care (01) | DRG 603 ==
LOC: ED 12:18 → 2N 15:44 → SUATTDRO 15:44 → 2N 16:49